=== PATIENT | male | born 1930 | race Caucasian/White ===

== ENCOUNTER 2017-05-09 06:14 | Inpatient (IN) | payer OTHER ==
[2017-05-09 06:33] VITALS: BMI 34.0
--- NOTE | 2017-05-09 06:43 | PDOC ---
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 As per EMS, patient comes from an assisted living facility. EMS states that the home health aide noticed the AMS this morning. Patient is confused and not answering questions. Patient also presents with rashes all over the body. History is obtained from EMS and medical records. History is limited secondary to patient condition. No fever, chills, shortness of breath, chest pain, nausea, vomit, diarrhea. Allergies: NKDA Social History: former smoker <Ava Sanon - Last Filed: 05/09/17 06:57> <Vi Sandy - Last Filed: 05/09/17 23:13> - General Chief Complaint: Altered Mental Status Stated Complaint: AMS Time Seen by Provider: 05/09/17 06:37 Past History <Ava Sanon - Last Filed: 05/09/17 06:57> - Past Medical History CVA: Yes (ON COUMADIN) COPD: No HTN: Yes Hypercholesterolemia: Yes Thyroid Disease: Yes (HYPO) - Immunization History Immunization Up to Date: Yes - Suicide/Smoking/Psychosocial Hx Smoking History: Unknown if ever smoked Have you smoked in the past 12 months: No Hx Alcohol Use: No Drug/Substance Use Hx: No Substance Use Type: None <Vi Sandy - Last Filed: 05/09/17 23:13> - Past Medical History Allergies/Adverse Reactions: Allergies Allergy/AdvReac Type Severity Reaction Status Date / Time No Known Allergies Allergy Verified 05/09/17 08:09 Home Medications: Ambulatory Orders Calcium Carb/Mag Ox/Zinc Sulf [Ytktdcj-Sfnhtwqyq-Lyhi Tablet] 1 each PO DAILY Cholecalciferol (Vitamin D3) [Vitamin D3] 2,000 unit PO DAILY 07/14/16 Donepezil HCl [Aricept] 10 mg PO DAILY 07/14/16 Escitalopram Oxalate [Lexapro -] 10 mg PO DAILY 07/14/16 Furosemide [Lasix] 40 mg PO DAILY 07/14/16 Levothyroxine [Synthroid -] 150 mcg PO ACBK 07/14/16 Lisinopril 10 mg PO DAILY 07/14/16 Memantine HCl [Namenda -] 10 mg PO DAILY 07/14/16 Mesalamine [Lialda] 1.2 gm PO BID 07/14/16 Metoprolol Tartrate [Lopressor -] 25 mg PO BID 07/14/16 Multivitamin [Poly-Vitamin] 1 each PO DAILY 07/14/16 [place]-3 Fatty Acids [Fish Oil] 1 mg PO BID 07/14/16 Potassium Chloride [K-Dur -] 10 meq PO DAILY 07/14/16 Simvastatin 10 mg PO DAILY 07/14/16 Warfarin Sodium [Coumadin] 5 mg PO DAILY 07/14/16 Review of Systems - Review of Systems Able to Perform ROS?: No (AMS) <Ava Sanon - Last Filed: 05/09/17 06:57> *Physical Exam - Vital Signs Last Vital Signs Temp Pulse Resp BP Pulse Ox 99.5 F 79 18 91/64 97 05/09/17 06:30 05/09/17 06:30 05/09/17 06:30 05/09/17 06:30 05/09/17 06:46 - Physical Exam Comments: 05/09/17 07:05 GENERAL: Awake, alert, (+) confused, in no acute distress HEAD: No signs of trauma EYES: PERRLA, EOMI, sclera anicteric, conjunctiva clear ENT: (+) hearing aid in ears, nares patent, oropharynx clear without exudates. Moist mucosa NECK: Normal ROM, supple, no lymphadenopathy, JVD, or masses LUNGS: Breath sounds equal, clear to auscultation bilaterally. No wheezes, and no crackles HEART: (+) Irregularly irregular. Regular rate, normal S1 and S2, no murmurs, rubs or gallops ABDOMEN: Soft, nontender, normoactive bowel sounds. No guarding, no rebound. No masses EXTREMITIES: Normal range of motion, no pitting edema. No clubbing or cyanosis. No cords, erythema, or tenderness NEUROLOGICAL: Cranial nerves II through XII grossly intact. SKIN: Warm, Dry, normal turgor, (+) chicken pox type rash. <Ava Sanon - Last Filed: 05/09/17 06:57> - Vital Signs Last Vital Signs Temp Pulse Resp BP Pulse Ox 99.5 F 79 18 91/64 97 05/09/17 06:30 05/09/17 06:30 05/09/17 06:30 05/09/17 06:30 05/09/17 06:30 <Vi Sandy - Last Filed: 05/09/17 23:13> ED Treatment Course - LABORATORY CBC & Chemistry Diagram: 05/09/17 07:00 05/09/17 07:00 - RADIOLOGY Radiology Studies Ordered: Category Date Time Status HEAD CT WITHOUT CONTRAST [CT] Stat CT Scan 05/09/17 06:29 Ordered CHEST X-RAY PORTABLE* [RAD] Stat Radiology 05/09/17 06:29 Ordered <Vi Sandy - Last Filed: 05/09/17 23:13> Medical Decision Making - Medical Decision Making 05/09/17 06:43 Pt has red maculopapular rash all over body and head and face. Possible pox. Some lesions crusted over. Pt is awake and arousable, but not answering questions. Pt is afebrile and in AFIB. Pt is moving all extremities; he is confused. No pitting edema. No cellulitis. Abd soft NT ND. Pt will have labs, UA, EKG, CXR portable and CT head, IV NSS. 05/09/17 23:13 Pt was signed out to the day team <Vi Sandy - Last Filed: 05/09/17 23:13> *DC/Admit/Observation/Transfer - Attestations Scribe Attestion: 05/09/17 06:58 Documentation prepared by Ava Sanon, acting as certified medical records coder for Vi Sandy MD/DO. <Ava Sanon - Last Filed: 05/09/17 06:57> <Vi Sandy - Last Filed: 05/09/17 23:13> Diagnosis at time of Disposition: Change in mental status, Pneumonia, Dehydration, Hypotension - Discharge Dispostion Condition at time of disposition: Guarded
[2017-05-09 07:12] LABS: BASO % 0.5 % (0-2.0); EOS % 0.2 % (0-4.5); HEMATOCRIT 45.1 % (35.4-49); HEMOGLOBIN 15.4 GM/dL (11.7-16.9); LYMPH % 5.6 % (8-40); MCH 30.9 pg (25.7-33.7); MEAN CELL VOLUME 90.7 fl (80-96); MEAN PLT VOLUME 8.3 fl (7.5-11.1); MONO % 5.7 % (3.8-10.2); PLATELET COUNT 205 K/MM3 (134-434); RBC 4.97 M/mm3 (4.00-5.60); RDW 14.9 % (11.9-15.9); WHITE BLOOD COUNT 10.4 K/mm3 (4.0-10.0)
--- NOTE | 2017-05-09 07:27 | PDOC ---
*Physical Exam - Vital Signs Last Vital Signs Temp Pulse Resp BP Pulse Ox 99.5 F 79 18 91/64 97 05/09/17 06:30 05/09/17 06:30 05/09/17 06:30 05/09/17 06:30 05/09/17 06:46 - Physical Exam Comments: 05/09/17 08:37 gen: sleeping, easily arousable, confused, only answers name correctly heart: +s1s2 irreg lungs: diminished BS b/l bases abd: soft, nt/nd +bs ext: no edema skin: healing pustules over entire body Heart Score/ECG Review - ECG Intrepretation Comment:: 05/09/17 07:25 afib at 72, nl axis, nl interval, no acute st/t wave findings ED Treatment Course - LABORATORY CBC & Chemistry Diagram: 05/09/17 07:00 05/09/17 07:00 Medical Decision Making - Medical Decision Making 05/09/17 07:25 a/p: 87yo male with AMS signed out pending labs, head ct, cxr, ekg -pt currently at head ct 05/09/17 08:39 retrocardiac density on cxr -mildly elevated wbc -confused, ams -will start abx cultures sent hypotensive will start ivf hydration 05/09/17 08:42 microblog sent to hospitalist for admission 05/09/17 08:47 daughter called nurse Danny - pt with all at the beginning of April. Went to [facility] who did head ct and xrays of his back pt has had back pain since put on codeine this week, which made him constipated, then put on stool softeners and has had diarrhea. now with 24 hour home health aide. Decreased PO intake. Hallucinations and altered yesterday. Confused for the last few days. case discussed with IM resident who accepts pt to service under Dr. Huber *DC/Admit/Observation/Transfer Diagnosis at time of Disposition: Change in mental status, Pneumonia, Dehydration, Hypotension - Discharge Dispostion Condition at time of disposition: Guarded Admit: Yes - Referrals - Patient Instructions - Post Discharge Activity
[2017-05-09 07:35] LABS: ALBUMIN 3.3 g/dl (3.4-5.0); ANION GAP 12 (8-16); BLOOD UREA NITROGEN 20 mg/dL (7-18); CHLORIDE 105 mmol/L (98-107); CO2 22 mmol/L (21-32); GLUCOSE,RANDOM 115 mg/dL (74-106); POTASSIUM 3.5 mmol/L (3.5-5.1); SODIUM 139 mmol/L (136-145)
[2017-05-09 07:39] LABS: ALK PHOS 157 U/L (45-117); BILIRUBIN,TOTAL 1.8 mg/dL (0.2-1.0); CREATININE 0.8 mg/dL (0.7-1.3); SGOT/AST 45 U/L (15-37); SGPT/ALT 41 U/L (12-78); TOT PROT 7.1 g/dl (6.4-8.2)
[2017-05-09] MEDS ORDERED: SODIUM CHLORIDE 0.9% 1000 ML INFUS.BAG IV ONE (08:19)
[2017-05-09] MEDS ORDERED: PIPERACILLIN/TAZOB 4.5 GM/100 ML PRE-DOCKED IVPB ONE (08:21)
[2017-05-09] MEDS ORDERED: VANCOMYCIN 1 GRAM (PRE-DOCKED) 1,000 MG/250 ML BAG IVPB ONE ×2 (08:21→08:23)
[2017-05-09] MEDS ORDERED: PIPERACILLIN/TAZOB 4.5 GM 4.5 GM/100 ML BAG IVPB ONE (08:23)
[2017-05-09 08:53] LABS: URINE APPEARANCE CLEAR; URINE BILIRUBIN NEGATIVE (NEGATIVE); URINE BLOOD NEGATIVE (NEGATIVE); URINE COLOR AMBER; URINE GLUCOSE (UA) NEGATIVE (NEGATIVE); URINE KETONE TRACE (NEGATIVE); URINE LEUK ESTERASE NEGATIVE (NEGATIVE); URINE NITRITE NEGATIVE (NEGATIVE); URINE PROTEIN NEGATIVE (NEGATIVE); URINE UROBILINOGEN NEGATIVE mg/dL (0.2-1.0)
--- NOTE | 2017-05-09 09:16 | HP ---
CHIEF COMPLAINT: AMS PCP: Dr. Merlyn Lazaro (associated with [facility]) Manager Transit: Dr. England; previously seen by [facility] physician (Dr. Judie Rodríguez) HISTORY OF PRESENT ILLNESS: HPI is limited due to pt only being oriented to self currently. Daughter was contacted by ED physician who provided some history and rest per medical chart. 87yo M with history of Afib (on Coumadin), previous WA (s/p triple bypass 15yrs ago), previous CVA (15-20 years ago), HTN, HLD, and hypothyroidism who presented for altered mental status. Per the daughter, pt has been altered since 04/30/17, however has become increasingly worse recently. According to daughter, pt has been reporting lower lumbar pain and was seen at [facility]. He received a Head CT and Xrays of his back which were negative according to pt' s daughter. Due to the pain pt was started on Codeine this week with the unfortunate consequence of making him constipated. As a result he was started on stool softeners which caused him diarrhea recently. Pt has a 24-hour home health aide who reported to the daughter that the pt has been having decreased PO intake recently. Currently pt continues to be oriented only to self, however he is alert with verbal stimulus. Pt's speech is slightly dysarthric and unorganized, however pt recognizes this when prompted saying "I seem to be having trouble coming up with words." Pt also reports being chilly and having back pain when sitting up. Otherwise pt denies any SOB or CP. ER course was notable for: (1) Head CT - negative for overt bleeding, enlarged L lateral ventricle, volume loss noted (2) CXR - Obscuring of the left lung angle which could be fluid, R cardiac silhoutte increased opacity (3) 1L NS (initial BP 91/64) (4) Vanc and Zosyn x1 PAST MEDICAL HISTORY: Afib (Coumadin) h/o WA (unknown if decreased EF resulting) HTN HLD Hypothyroidism h/o CVA (unknown time or residual deficits) PAST SURGICAL HISTORY: CABG (Triple bypass) 15 years ago --Surgical clippings noted on R neck (? cartoid endarterectomy) Social History: Smoking: Former smoker Alcohol: Rarely Drugs: None At baseline, pt walks with a cane however has been bedridden due to coccyx Family History: Unobtainable due to altered status Allergies No Known Allergies Allergy (Verified 05/09/17 08:09) HOME MEDICATIONS: Home Medications Medication Instructions Recorded Calcium Carb/Mag Ox/Zinc Sulf 1 each PO DAILY 07/14/16 [Flvvjdt-Hapkedzkv-Tqxx Tablet] Cholecalciferol (Vitamin D3) 2,000 unit PO DAILY 07/14/16 [Vitamin D3] Donepezil HCl [Aricept] 10 mg PO DAILY 07/14/16 Escitalopram Oxalate [Lexapro -] 10 mg PO DAILY 07/14/16 Furosemide [Lasix] 40 mg PO DAILY 07/14/16 Levothyroxine [Synthroid -] 150 mcg PO DAILY 07/14/16 Lisinopril 10 mg PO DAILY 07/14/16 Memantine HCl [Namenda -] 10 mg PO DAILY 07/14/16 Mesalamine [Lialda] 1.2 gm PO BID 07/14/16 Metoprolol Tartrate [Lopressor -] 25 mg PO BID 07/14/16 Multivitamin [Poly-Vitamin] 1 each PO DAILY 07/14/16 [place]-3 Fatty Acids [Fish Oil] 1 mg PO BID 07/14/16 Potassium Chloride [K-Dur -] 10 meq PO DAILY 07/14/16 Simvastatin 10 mg PO DAILY 07/14/16 Warfarin Sodium [Coumadin] 5 mg PO ASDIR 07/14/16 REVIEW OF SYSTEMS CONSTITUTIONAL: Present: Chills Absent: fever, chills, diaphoresis, generalized weakness HEENT: Absent: rhinorrhea, nasal congestion, throat pain, ear pain, visual changes CARDIOVASCULAR: Absent: chest pain, syncope, palpitations, lightheadedness, peripheral edema RESPIRATORY: Absent: cough, shortness of breath, dyspnea with exertion GASTROINTESTINAL: Present: Diarrhea Absent: abdominal pain, abdominal distension, nausea, vomiting GENITOURINARY: Absent: dysuria, frequency, flank pain, genital pain MUSCULOSKELETAL: Present: Back Pain Absent: myalgia, arthralgia, neck pain SKIN: Present: Rash Absent: itching NEUROLOGIC: Absent: headache, focal weakness or paresthesias, dizziness, bladder or bowel incontinence PHYSICAL EXAMINATION Vital Signs - 24 hr 05/09/17 05/09/17 06:30 06:46 Temperature 99.5 F Pulse Rate 79 Respiratory 18 Rate Blood Pressure 91/64 O2 Sat by Pulse 97 97 Oximetry (%) GENERAL: NAD, Awake, alert, and oriented only to self HEAD: NC/AT, see skin exam EYES: constricted pupils, however reactive to light b/l, EOMI, sclera anicteric , conjunctive clear, no exophthalmos ENT: Hearing aids in place, nares patent, oropharynx clear without exudates. Poor dentition. Dry mucous membranes. NECK: supple without lymphadenopathy, JVD, or masses. LUNGS: CTA bilaterally. No wheezes, rales, rhonchi. No accessory muscle use. HEART: Irregularly irregular with normal rate, normal S1 and S2 without murmur ABDOMEN: Soft, nontender, nondistended, normoactive bowel sounds, no guarding, substernal hernia freely reducible w/o any skin changes noted midline No hepatomegaly upon palpation or percussion MUSCULOSKELETAL: No spinal tenderness upon palpation. No CVA tenderness. UPPER EXTREMITIES: 1+ DP pulses, cool extremities with cap refill <2sec. No cyanosis. No calf tenderness. No peripheral edema. NEUROLOGICAL: Slight R facial asymmetry noted at rest. Smile intact bilaterally. GIOVANNA, EOMI, sensation intact across CN V distributions, No tongue deviation, No uvula deviation, UE strength 5/5 and symmetrical in all galindo, LE strength 5/5 and symmetrical in all galindo, sensation intact throughout extremities. Slightly dysarthric speech, Gait not observed. PSYCHIATRIC: Cooperative. Good eye contact. Appropriate mood and affect. SKIN: Warm, dry, honey-crusted lesions noted on R side of face across multiple dermatomes. LE old contusions noted with L anterior leg contusion being most notable. No rash palms or soles of feet. No open wounds noted, no bites noted inbetween webbing of feet and hands. Laboratory Results - last 24 hr 05/09/17 05/09/17 05/09/17 07:00 07:00 07:00 WBC 10.4 H D RBC 4.97 Hgb 15.4 Hct 45.1 MCV 90.7 MCH 30.9 MCHC 34.0 RDW 14.9 Plt Count 205 D MPV 8.3 Neutrophils % 88.0 H Lymphocytes % 5.6 L D Monocytes % 5.7 Eosinophils % 0.2 Basophils % 0.5 Sodium 139 Potassium 3.5 Chloride 105 Carbon Dioxide 22 Anion Gap 12 BUN 20 H Creatinine 0.8 Creat Clearance w eGFR > 60 Random Glucose 115 H Calcium 8.0 L Total Bilirubin 1.8 H AST 45 H ALT 41 Alkaline Phosphatase 157 H Creatine Kinase 274 Troponin I < 0.02 Total Protein 7.1 Albumin 3.3 L Urine Color Urine Appearance Urine pH Ur Specific [place] Urine Protein Urine Glucose (UA) Urine Ketones Urine Blood Urine Nitrite Urine Bilirubin Urine Urobilinogen Ur Leukocyte Esterase 05/09/17 08:18 WBC RBC Hgb Hct MCV MCH MCHC RDW Plt Count MPV Neutrophils % Lymphocytes % Monocytes % Eosinophils % Basophils % Sodium Potassium Chloride Carbon Dioxide Anion Gap BUN Creatinine Creat Clearance w eGFR Random Glucose Calcium Total Bilirubin AST ALT Alkaline Phosphatase Creatine Kinase Troponin I Total Protein Albumin Urine Color Nan Urine Appearance Clear Urine pH 5.0 Ur Specific [place] 1.024 Urine Protein Negative Urine Glucose (UA) Negative Urine Ketones Trace H Urine Blood Negative Urine Nitrite Negative Urine Bilirubin Negative Urine Urobilinogen Negative Ur Leukocyte Esterase Negative ASSESSMENT/PLAN: 87yo M with history of Afib (on Coumadin), previous [place], previous CVA, HTN, HLD, and hypothyroidism who presented for altered mental status 1) Acute encephalopathy --Metabolic vs. polypharmacy (recent codeine initiation for back pain) --Poor PO intake noted with bouts of diarrhea and with home lasix --IVF 1LNS bolused; continue NS@75cc/hr --No abnormalities seen on CMP --Despite CXR doubt PNA; SIRS 0/4 criteria --Will hold off of antibiotics for now and reassess as needed --Per daughter, pt at baseline is verbal (reads [place] [employer] daily), walks with cane, has home health aid for ADLs --Pt however has been bedridden due to his coccygeal problems --? [facility] facility after discharge 2) Dysarthria --Most likely secondary to codeine and dehydration in elderly --Head CT negative for acute hemorrhage; enlarged L posterior ventricle horn noted; volume loss noted (by my read) --Doubt stroke; NIHSS 3 (dysarthria and incorrect responses) --Monitor; may see improvement with hydration and clearance of codeine 3) ? History of CHF --Lasix, Kdur noted on medication list --Obtain records from [facility] and will place call to daughter (Mary [place] noted in computer system) --Echocardiogram to be ordered 4) Known Atrial fibrillation, paroxysmal --Coumadin 5mg qDaily --Confirmed with pharmacy --Monitor INR --If supratherapeutic with daily dose can alternate 5mg and 2.5mg 5) Hyperlipidemia --Lipitor 10mg HS 6) Hypothyroidism --Synthroid 150mcg --TSH 2.33 noted FEN: Fluids: NS @75cc/hr; avoid fluid overlaid Electrolyte abnormalities: None currently Nutrition: NPO for now; speech and swallow eval PPX: DVT - Moderate risk; on coumadin GI - None indicated Dispo: Admit to med-surg Case discussed with Dr. Cecile Sigala, DO - Internal Medicine PGY-1 Visit type - Emergency Visit Emergency Visit: Yes ED Registration Date: 05/09/17 Care time: The patient presented to the Emergency Department on the above date and was hospitalized for further evaluation of their emergent condition. - New Patient This patient is new to me today: Yes Date on this admission: 05/10/17 - Critical Care Critical Care patient: No
--- NOTE | 2017-05-09 09:25 | HP ---
HISTORY OF PRESENT ILLNESS: LIMITED INFORMATION DUE TO PATIENTS MEDICAL CONDITION. Patient is an 87 year old male with a PMHx of A.Eric on Coumadin, CAD s/p ID, HLD , depression, dementia, hypothyroidism who was BIBEMS for altered mental status. Patient is poor historian and according to ED staff patient was sent over after his home health aid noticed he was more confused and not answering questions. Daughter was contacted and states that for the last 10 days patient has been more altered than usual. He recently went to [facility] for back pain and Head CT and Spine X-Ray "was negative" according to the daughter. He was sent him with Codeine, which made him constipated and then they gave him stool softner which caused him to have diarrhea. According to Home health aid, patient has had poor PO intake. Otherwise, patient denied any shortness of breath, chest pain, nausea, or vomiting. Patient Wwalks with a cane at baseline PHYSICAL EXAMINATION Vital Signs - 24 hr 05/09/17 05/09/17 05/09/17 06:30 06:46 09:23 Temperature 99.5 F Pulse Rate 79 Pulse Rate [ 87 Right] Respiratory 18 20 Rate Blood Pressure 91/64 Blood Pressure 128/87 [Right Arm] O2 Sat by Pulse 97 97 95 Oximetry (%) GENERAL: Awake, alert, oriented X1 to person, No acute distress HEAD: Normal with no signs of trauma with honey crusted annular lesions on bilateral temporal and cheek area EYES: Constricted pupils and equal, round and reactive to light, extraocular movements intact, sclera anicteric, conjunctiva clear. No lid lag. EARS, NOSE, THROAT: Oropharynx clear without exudates. Dry mucous membranes. NECK: Normal range of motion, supple without lymphadenopathy, JVD, or masses. LUNGS: Breath sounds equal, clear to auscultation bilaterally. No wheezes, and no crackles. No accessory muscle use. HEART: Regular rate with irregularly irregular rhythm, normal S1 and S2 without murmur, rub or gallop. ABDOMEN: Soft, nontender, not distended, reducible abdominal hernia, normoactive bowel sounds, no guarding, no rebound, no masses. No hepatomegaly or splenomegaly. MUSCULOSKELETAL: Normal range of motion at all joints. No bony deformities or tenderness. No CVA tenderness. UPPER EXTREMITIES: 2+ pulses, warm, well-perfused. No cyanosis. No clubbing. No peripheral edema. LOWER EXTREMITIES: left dp 2+, right dp 1+, cold , well-perfused. No calf tenderness. No peripheral edema. NEUROLOGICAL: Cranial nerves II-XII intact except CN VII, but hard of hearing and mild left facial droop. Dysarthria. Motor strength 5/5 bilaterally with sensory intact throughout. PSYCHIATRIC: Disorganized thought, but cooperative. Laboratory Results - last 24 hr 05/09/17 05/09/17 05/09/17 07:00 07:00 07:00 WBC 10.4 H D RBC 4.97 Hgb 15.4 Hct 45.1 MCV 90.7 MCH 30.9 MCHC 34.0 RDW 14.9 Plt Count 205 D MPV 8.3 Neutrophils % 88.0 H Lymphocytes % 5.6 L D Monocytes % 5.7 Eosinophils % 0.2 Basophils % 0.5 Sodium 139 Potassium 3.5 Chloride 105 Carbon Dioxide 22 Anion Gap 12 BUN 20 H Creatinine 0.8 Creat Clearance w eGFR > 60 Random Glucose 115 H Calcium 8.0 L Total Bilirubin 1.8 H AST 45 H ALT 41 Alkaline Phosphatase 157 H Creatine Kinase 274 Troponin I < 0.02 Total Protein 7.1 Albumin 3.3 L Urine Color Urine Appearance Urine pH Ur Specific [place] Urine Protein Urine Glucose (UA) Urine Ketones Urine Blood Urine Nitrite Urine Bilirubin Urine Urobilinogen Ur Leukocyte Esterase 05/09/17 08:18 WBC RBC Hgb Hct MCV MCH MCHC RDW Plt Count MPV Neutrophils % Lymphocytes % Monocytes % Eosinophils % Basophils % Sodium Potassium Chloride Carbon Dioxide Anion Gap BUN Creatinine Creat Clearance w eGFR Random Glucose Calcium Total Bilirubin AST ALT Alkaline Phosphatase Creatine Kinase Troponin I Total Protein Albumin Urine Color Nan Urine Appearance Clear Urine pH 5.0 Ur Specific [place] 1.024 Urine Protein Negative Urine Glucose (UA) Negative Urine Ketones Trace H Urine Blood Negative Urine Nitrite Negative Urine Bilirubin Negative Urine Urobilinogen Negative Ur Leukocyte Esterase Negative Head CT (05/09/17): No acute pathology Chest X-Ray (05/09/17): Large heart with sclerotic knob, sternal sutures and clips. Dense retrocardiac area and an old fracture deformity of the right clavicle. There are degenerative changes. ASSESSMENT/PLAN: Patient is an 87 year old male who was BIBEMS for Altered Mental Status and was found to have hypotension. Patient admitted for further monitoring and management. Altered Mental Status- Improving -Likely secondary to recent Codeine use for back pain as well as poor oral intake, as per home health aid and daughter. However, Chest X-ray did reveal Dense retrocardiac area with possible consolidation/infiltrate. Will rule out any infectious VS. neurological etiology causing his AMS. Patient does not appear to be septic/toxic looking. He is afebrile with no tachycardia or leukocytosis. No indication for antibiotic use and can monitor off antibiotics. -Urine Antigens, Mycoplasma IgM, and sputum cultures sent -Bedside swallow eval to rule out aspiration. Will leave NPO for now Dysarthria -CT head negative for acute pathology but will need to rule out stroke. -NIH stroke scale: 3 -Will need neuro consult Hypotension -Likely secondary codeine use and poor oral intake -Responded well to IV fluids (2 boluses). Will continue maintenance IV fluids with IV NS@75mls/hr -Will continue to monitor BP and hold off on any Anti-HTN medications A.Fib on Coumadin -Currently rate controlled -PT/INR ordered -Will need to confirm coumadin Hypothyroidism -TSH ordered -Will need to confirm synthroid dose CAD s/p ID -Will need to confirm medications but will hold off anti-htn medications due to borderline hypotension. -Echo ordered HLD -Lipid panel ordered -Will continue Lipitor once dosage confirmed -Rest per Director Of Purchasing H&P -Case discussed with Attending and Bag Loader Lesia Brown- PGY2 Visit type - Emergency Visit Emergency Visit: Yes ED Registration Date: 05/09/17 Care time: The patient presented to the Emergency Department on the above date and was hospitalized for further evaluation of their emergent condition. - New Patient This patient is new to me today: Yes Date on this admission: 05/09/17 - Critical Care Critical Care patient: No
[2017-05-09 10:03] LABS: PHOSPHOROUS 3.4 mg/dL (2.5-4.9)
[2017-05-09] MEDS: SODIUM CHLORIDE 1,000 ML IV SCH (10:19)
[2017-05-09 11:14] LABS: MAGNESIUM 2.2 mg/dL (1.8-2.4)
[2017-05-09 11:31] LABS: INR 2.48 (0.82-1.09)
[2017-05-09] MEDS: MEMANTINE HCL 10 MG TABLET (FP) PO SCH (13:09)
[2017-05-09] MEDS: ESCITALOPRAM OXALATE 10 MG TABLET (FP) PO SCH (13:09)
--- NOTE | 2017-05-09 14:56 | PN ---
Teaching Attending Note Name of Resident: Rush Sigala ATTENDING PHYSICIAN STATEMENT I saw and evaluated the patient. I reviewed the resident's note and discussed the case with the resident. I agree with the resident's findings and plan as documented. HPI is per chart and daughters present at bedside SUBJECTIVE:87yo M with PMH afib on coumadin, CAD s/p CABG, CVA, HTN, dyslipidemia, and UC was sent to the ER for AMS with hallucinations. was seen at [facility] for back pain. imaging done was negative and started on Tylenol #3. then developed constipation and started on laxatives 2 days ago. and developed diarrhea. as per them he has been mostly bed bound since his development of back pain but at baseline ambulates with walker. as per them he is more alert then when he first arrived but not at baseline. states he did not take his medications for the past 2 days. unaware if he is eating/drinking. has not been on any recent abx. been trying to get him into assisted living and is on the waiting list. 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 noted pt had 3 BM during my interview pt denies CP, SOB< fever, chills, N/V/C OBJECTIVE: Last Vital Signs Temp Pulse Resp BP Pulse Ox 98.0 F 87 20 128/87 95 05/09/17 14:35 05/09/17 09:23 05/09/17 09:23 05/09/17 09:23 05/09/17 09:23 General lethargic, A&O x2 (self and location) HEENT pinpoint pupils, dry mucosa CV S1 S2 RRR +murmur Lungs CTA B/L no wheezing/rales/rhonchi abdomen soft NT/ND Extremities no pedal edema Skin macular lesions diffusely throughout the body with some honey crusting on the face. lopez colored lesions on the LLE anterior [place]. lesions are not painful , dry cracked skin Neuro delayed speech, moves all 4 extremities. does not follow all commands ASSESSMENT AND PLAN: 87yo M with PMH afib on coumadin, CAD s/p CABG, CVA, HTN, dyslipidemia, and UC was sent to the ER for AMS with hallucinations. 1. Acute metabolic encephalopathy- [facility] admission. likely due to dehydration with polypharmacy with opiate use. improved since arrival with IV hydration. consider repeat Head ct vs MRI if does not continue to improve. started on vanco/zosyn. will stop at this time as no source of infection identified (UA and CXR negative). head CT done with results pending but on my read no acute bleed. old infarct seen. hold sedating medications. 2. Back pain- check LS XR. tylenol as needed for pain. PT assessment 3. Dehydrated-diarrhea with poor oral intake and diuretic use. IVF resuscitation. frequent lung exam to prevent pulmonary edema. hold lasix 4. Diarrhea- likely due to laxative use however can not r/o UC flare. will monitor for now. no assoc fever or chills or recent abx use. will monitor for now. consider loperamide. cont asacol 5. Hypotension- due to dehydration. IVF. hold antihypertensives 6. Afib on coumadin- INR therapeutic. confirm no head bleed and then can resume coumadin. will reduce metoprolol in setting of hypotension. 7. CAD s/p CABG- no signs of acs. cont statin 8. Dementia- on aricpet, lexapro 9. Hypothyroid- TSH WNL. cont LT4 10. Diffuse sun damage- as per daughters has diffuse skin damage which he is being followed closely by [employer] with advance cream regimen. states honey crusted drainage is chronic and [employer] aware 11. DVT ppx- coumadin 12. spoke with urmila present at bedside. all questions answered. PT assessment and will likely require CLAUDETTE on discharge. On further questioning this is a pt of Dr Roland who Dr Basurto covers for in the hospital. Dr Basurto to assume care in the AM.
[2017-05-09] MEDS ORDERED: WARFARIN NA 5 MG TABLET (UD) PO SCH (15:15)
[2017-05-09] MEDS: WARFARIN NA 5 MG TABLET (UD) PO SCH (18:52)
[2017-05-09] MEDS: METOPROLOL TARTRATE 25 MG TABLET (FP) PO SCH (21:43)
[2017-05-09] MEDS: ATORVASTATIN CA 10 MG TABLET (FP) PO SCH (21:43)
[2017-05-09] MEDS: ACETAMINOPHEN 325 MG TABLET (FP) PO PRN (21:50)
[2017-05-09] MEDS ORDERED: PATIENT'S OWN MEDICATION (NON-FORMULARY) (Simvastatin [Simvastatin] 10 MG) PO SCH (22:00)
[2017-05-10] MEDS: LEVOTHYROXINE NA 150 MCG TABLET PO SCH (06:02)
[2017-05-10 08:44] LABS: HEMATOCRIT 41.5 % (35.4-49); HEMOGLOBIN 13.9 GM/dL (11.7-16.9); MCH 30.5 pg (25.7-33.7); MCHC 33.6 g/dl (32.0-35.9); MEAN CELL VOLUME 90.9 fl (80-96); MEAN PLT VOLUME 8.3 fl (7.5-11.1); PLATELET COUNT 191 K/MM3 (134-434); RBC 4.57 M/mm3 (4.00-5.60); RDW 14.8 % (11.9-15.9); WHITE BLOOD COUNT 6.1 K/mm3 (4.0-10.0)
[2017-05-10 08:46] LABS: INR 3.22 (0.82-1.09); PROTHROMBIN TIME (PATIENT) 36.4 SEC (9.98-11.88)
[2017-05-10 09:04] LABS: CHLORIDE 112 mmol/L (98-107); POTASSIUM 3.4 mmol/L (3.5-5.1); SODIUM 146 mmol/L (136-145)
[2017-05-10 09:17] LABS: ANION GAP 12 (8-16); BLOOD UREA NITROGEN 15 mg/dL (7-18); CO2 22 mmol/L (21-32); CREATININE 0.5 mg/dL (0.7-1.3); GLUCOSE,RANDOM 87 mg/dL (74-106)
[2017-05-10] MEDS ORDERED: PATIENT'S OWN MEDICATION (NON-FORMULARY) (Multivitamin [Poly-Vitamin] 1 EACH) PO SCH (10:00)
[2017-05-10] MEDS: METOPROLOL TARTRATE 25 MG TABLET (FP) PO SCH ×2 (10:14→21:27)
[2017-05-10] MEDS: MULTIVITAMINS (DAILY MVI) TABLET (FP) PO SCH (10:14)
[2017-05-10] MEDS: DONEPEZIL HCL 10 MG TABLET (FP) PO SCH (10:14)
[2017-05-10] MEDS: POTASSIUM CHLORIDE TABS 10 MEQ TABLET.ER (FP) PO SCH (10:14)
[2017-05-10] MEDS: ESCITALOPRAM OXALATE 10 MG TABLET (FP) PO SCH (10:14)
[2017-05-10] MEDS: ACETAMINOPHEN 325 MG TABLET (FP) PO PRN (10:14)
[2017-05-10] MEDS: MEMANTINE HCL 10 MG TABLET (FP) PO SCH (10:14)
[2017-05-10] MEDS: SODIUM CHLORIDE 1,000 ML IV SCH (10:15)
--- NOTE | 2017-05-10 11:10 | CONSULT ---
Admitting History and Physical - Primary Care Physician PCP: Mallory Huber - Admission History of Present Illness: 87yo M with history of Afib (on Coumadin), previous RI, previous CVA, HTN, HLD, and hypothyroidism who presented for altered mental status. Pt was premorbidly fairly independent in % star. Pt reports radiating pain down his right leg. Pt's daughter reports speech production is back to baseline, Dysarthric since old CVA, but he is more confused than baseline. No h/o PNA or recurrent bronchitis. Denies h/o dysphagia, although he "always speaks with his mouth full." History Source: Patient, Family Member (Daughter served as informant.) Limitations to Obtaining History: Clinical Condition - Smoking History Smoking history: Unknown if ever smoked Have you smoked in the past 12 months: No - Alcohol/Substance Use Hx Alcohol Use: No History - Admission Reason For Visit: PNEUMONIA, AMA & DEHYDRATION - Diagnostics X-ray: Report Reviewed CT Scan: Report Reviewed - General Mental Status: Awake and Alert, Able to Follow Commands, Forgetful (Oriented to hospital, xmas recently.) Ability to Follow Directions: Good Head/Neck Control: Fair - Hearing Hearing: Impaired, Both Hearing Aide: Yes (1 WITH PATIENT) With Patient: Yes Speech Evaluation - Communication Primary Language: [place] CITIZEN Communication: Yes: Dysarthria Oral Expression Ability: Yes: Mild Impairment - Speech Production Able to Make Needs Known: Yes: WNL Intelligibility: Yes: Mildly Impaired - Speech Characteristics Voice Loudness: Normal Voice Pitch: Yes: Normal Voice Phonatory-based Quality: Yes: Normal Speech Clarity: < 100% Nasal Resonance: Normal Articulation: Yes: Imprecise (mild) - Language/Auditory Comprehension Observation: Able to respond to yes/no queries: Yes, Comprehends Conversational Speech: Yes - Language/Verbal Expression Aphasia: Yes: Anomia Able to Respond to Simple Queries: Yes: Mildly Impaired Able to Communicate Wants and Needs: Yes: WNL Functional Communication Status: Yes: WNL - Swallow Evaluation/Bedside Assessment Current Nutritional Intake: NPO Oral Secretions: Yes: WFL Dentition: Yes: Adequate, Dental Appliance Upper, Dental Appliance Lower Facial Symmetry at Rest: Symmetrical Facial Symmetry on Retraction: Symmetrical Against Resistance Opening: Normal Against Resistance Closing: Normal Pucker Lips: Normal Smile: Normal Lingual Movement: Normal, Symmetric Lingual Speed of Movement: Reduced Lingual Movement Strgth Against Opposition: Reduced Velopharyngeal Movement: Normal Laryngeal Movement: Labored,delay initiation Rate of Intake: Impulsive Labial Seal: WFL Chewing: WFL Oral Prep Time: WFL A-P Transit: WFL Timing of Swallow: Delayed Coughing/Throat Clear: No Change in Voice: No Recommendations - Speech Evaluation, Impression/Plan Impression: Pt noted to cough on thin liquids intermittently. Two 3 oz water test via straw were (-). Mildly delayed swallow onset but swallow itself is quite brisk. - Dysphagia Impressions/Plan Dysphagia Impressions: Mild Impairment, Risk of Aspiration, Ongoing Evaluation *Silent aspiration: cannot be R/O at bedside Dysphagia Treatment Plan: Small Bites, Chin Tuck/Down, Clear Pocket Food, Facilitative Feeding, 1/2 tsp. at a time, Elevate HOB during feed Recommendations: Modified Barium Swallow (if cough noted) - Recommendations Diet Consistency: Regular (soft, easy to chew) Liquids: Thin Liquids (trial. If cough, [place] thick liquid and MBS.)
--- NOTE | 2017-05-10 11:34 | EKG ---
Test Reason : Blood Pressure : / mmHG Vent. Rate : 072 BPM Atrial Rate : 088 BPM P-R Int : 000 ms QRS Dur : 108 ms QT Int : 444 ms P-R-T Axes : 000 -34 014 degrees QTc Int : 486 ms ATRIAL FIBRILLATION LEFT AXIS DEVIATION NONSPECIFIC T WAVE ABNORMALITY PROLONGED QT ABNORMAL ECG NO PREVIOUS ECGS AVAILABLE Confirmed by AZALEA KINGSTON MD ([id number]) on 05/10/2017 11:34:23 AM Referred By: Confirmed By:AZALEA KINGSTON MD
--- NOTE | 2017-05-10 11:50 | PN ---
Progress Note (short form) - Note Progress Note: HPI is limited due to pt only being oriented to self currently. Daughter was contacted by ED physician who provided some history and rest per medical chart. 87yo M with history of Afib (on Coumadin), previous CT, previous CVA, HTN, HLD, and hypothyroidism who presented for altered mental status. Patient with hx of falls - recent fall with head trauma seen at [facility] -CT neg at that time for acute injury. Per the daughter, pt has been altered since 04/30/17, however has become increasingly worse recently. According to daughter, pt has been reporting lower lumbar pain . Due to the pain pt was started on Codeine this week with the unfortunate consequence of making him constipated. As a result he was started on stool softeners which caused him diarrhea recently. Pt has a 24- hour home health aide who reported to the daughter that the pt has been having decreased PO intake recently. Daughter further offers hx of depression / suicidal ideation / hallucinations / along with cognitive decline Currently pt continues to be oriented only to self, however he is alert with verbal stimulus. Pt's speech is slightly dysarthric and unorganized, however pt recognizes this when prompted saying "I seem to be having trouble coming up with words.". Otherwise pt denies any SOB or CP. ER course was notable for: (1) Head CT - negative for overt bleeding, enlarged L lateral ventricle, volume loss noted (2) CXR - Obscuring of the left lung angle which could be fluid, R cardiac silhoutte increased opacity (3) 1L NS (initial BP 91/64) (4) Vanc and Zosyn x1 Vital Signs Period Temp Pulse Resp BP Sys/Macdonald Pulse Ox Last 24 Hr 97.6 F-98.1 F 69-85 16-20 114-169/60-92 98-100 in bed examined laying in bed / confused / gets agitated easily doesn't know why he is here "why can't I do this at home??" poorly cooperative with exam neck supple heart S1/S2 lungs clear bilat abd soft non tenderr ext no edema Chronic changes left >r CBC, BMP 05/10/17 07:30 05/10/17 07:30 case discussed with daughter discussed findings plans for Neurology eval PT eval and benefit of STR for ADLs Active Medications Acetaminophen (Tylenol -) 650 mg PO Q6H PRN PRN Reason: PAIN Last Admin: 05/10/17 10:14 Dose: 650 mg Atorvastatin Calcium (Lipitor -) 10 mg PO HS [facility] Last Admin: 05/09/17 21:43 Dose: 10 mg Donepezil HCl (Aricept -) 10 mg PO DAILY [facility] Last Admin: 05/10/17 10:14 Dose: 10 mg Escitalopram Oxalate (Lexapro -) 10 mg PO DAILY [facility] Last Admin: 05/10/17 10:14 Dose: 10 mg Sodium Chloride (Normal Saline -) 1,000 mls @ 75 mls/hr IV ASDIR [facility] Stop: 05/10/17 22:49 Last Admin: 05/10/17 10:15 Dose: Not Given Levothyroxine Sodium (Synthroid -) 150 mcg PO ACBK [facility] Last Admin: 05/10/17 06:02 Dose: 150 mcg Memantine (Namenda -) 10 mg PO DAILY [facility] Last Admin: 05/10/17 10:14 Dose: 10 mg Metoprolol Tartrate (Lopressor -) 12.5 mg PO BID [facility] Last Admin: 05/10/17 10:14 Dose: 12.5 mg Multivitamins/Minerals/Vitamin C (Tab-A-Vit -) 1 tab PO DAILY [facility] Last Admin: 05/10/17 10:14 Dose: 1 tab Potassium Chloride (K-Dur -) 10 meq PO DAILY [facility] Last Admin: 05/10/17 10:14 Dose: 10 meq Warfarin Sodium (Coumadin -) 5 mg PO DAILY@1800 [facility] Last Admin: 05/09/17 18:52 Dose: 5 mg Microbiology 05/09/17 07:00 Blood - Peripheral Venous Blood Culture - Preliminary NO GROWTH OBTAINED AFTER 24 HOURS, INCUBATION TO CONTINUE FOR 4 DAYS. 05/09/17 07:00 Blood - Peripheral Venous Blood Culture - Preliminary NO GROWTH OBTAINED AFTER 24 HOURS, INCUBATION TO CONTINUE FOR 4 DAYS. 05/09/17 09:40 Urine For Antigen Detection Legionella Antigen - Final 05/09/17 09:40 Urine For Antigen Detection Streptococcus pneumoniae Antigen (M - Final ASSESSMENT/PLAN: 87yo M with history of Afib (on Coumadin), previous CT, previous CVA, HTN, HLD, and hypothyroidism who presented for altered mental status # Acute encephalopathy --Metabolic vs. polypharmacy (recent codeine initiation for back pain) --Poor PO intake noted with bouts of diarrhea and with home lasix --IVF 1LNS bolused; continue NS@75cc/hr --No abnormalities seen on CMP --Despite CXR doubt PNA; SIRS 0/4 criteria --Will hold off of antibiotics for now and reassess as needed --Per daughter, pt at baseline is verbal, walks with cane, has home health aid for ADLs # Dysarthria -- resolving --Most likely secondary to codeine and dehydration in elderly --Head CT negative for acute hemorrhage --Neuro consult ordered # History of CAD / CHF / A.Fib -- KNown to Dr Salazar group - will consult -- hold coumadin -- follow INR # Hyperlipidemia --Lipitor 10mg HS # Hypothyroidism --Synthroid 150mcg --TSH 2.33 noted # falls/ dementia -- Neuro consult -- PT for ADL / safety -- hold coumadin Problem List - Problems (1) Change in mental status Code(s): R41.82 - ALTERED MENTAL STATUS, UNSPECIFIED (2) Dementia Code(s): F03.90 - UNSPECIFIED DEMENTIA WITHOUT BEHAVIORAL DISTURBANCE (3) A-fib Code(s): I48.91 - UNSPECIFIED ATRIAL FIBRILLATION (4) Fall Code(s): W19.XXXA - UNSPECIFIED FALL, INITIAL ENCOUNTER (5) Hypothyroidism Code(s): E03.9 - HYPOTHYROIDISM, UNSPECIFIED (6) Dehydration Code(s): E86.0 - DEHYDRATION (7) Hypotension Code(s): I95.9 - HYPOTENSION, UNSPECIFIED
[2017-05-10] MEDS ORDERED: POTASSIUM CHLORIDE TABS 20 MEQ TABLET.ER (FP) PO ONE (12:01)
--- NOTE | 2017-05-10 16:21 | CON.CARD ---
Consult Consult Specialty:: cardio Referred by:: baljinder Reason for Consultation:: h/o afib - History of Present Illness Chief Complaint: altered MS History of Present Illness: 87yo M presented for altered mental status. pt has seen my twice in office since he moved to [facility]. he was here recently s/p fall with head trauma--CT head w/o bleed then. dr torres (PMD) d/w'd me last week--per her report he has had cognitive worsening of late, and has fallen at least 3 times now that she has documented since she met him last year. pt's family was advised to make f/u with me in office to discuss R/B of AC. now back with progressive MS worsening since left hospital last time. + lower lumbar pain since the fall, started Codeine this week. + constipation since. home health aide reported to the daughter that he has decreased PO intake recently. also reportedly with hx of depression / suicidal ideation / hallucinations / along with cognitive decline Head CT in ER with no bleeding and no acute infarct. pt admits to ongoing low back pain radiating down R leg with movement sometimes. denies cp, sob, palpitations, syncope PMH: Afib (on Coumadin), previous CVA ? CAD HTN HLD hypothyroidism - Alcohol/Substance Use Hx Alcohol Use: No - Smoking History Smoking history: Unknown if ever smoked Have you smoked in the past 12 months: No Home Medications - Allergies Allergies/Adverse Reactions: Allergies Allergy/AdvReac Type Severity Reaction Status Date / Time No Known Allergies Allergy Verified 05/09/17 08:09 - Home Medications Home Medications: Ambulatory Orders Calcium Carb/Mag Ox/Zinc Sulf [Tyzdtlc-Spimvzkwh-Ecub Tablet] 1 each PO DAILY Cholecalciferol (Vitamin D3) [Vitamin D3] 2,000 unit PO DAILY 07/14/16 Donepezil HCl [Aricept] 10 mg PO DAILY 07/14/16 Escitalopram Oxalate [Lexapro -] 10 mg PO DAILY 07/14/16 Furosemide [Lasix] 40 mg PO DAILY 07/14/16 Levothyroxine [Synthroid -] 150 mcg PO ACBK 07/14/16 Lisinopril 10 mg PO DAILY 07/14/16 Memantine HCl [Namenda -] 10 mg PO DAILY 07/14/16 Mesalamine [Lialda] 1.2 gm PO BID 07/14/16 Metoprolol Tartrate [Lopressor -] 25 mg PO BID 07/14/16 Multivitamin [Poly-Vitamin] 1 each PO DAILY 07/14/16 [place]-3 Fatty Acids [Fish Oil] 1 mg PO BID 07/14/16 Potassium Chloride [K-Dur -] 10 meq PO DAILY 07/14/16 Simvastatin 10 mg PO DAILY 07/14/16 Warfarin Sodium [Coumadin] 5 mg PO DAILY 07/14/16 Family Disease History - Family Disease History Family History: Unable to Obtain Review of Systems - Review of Systems Constitutional: denies: Chills, Fever Eyes: denies: Eye Pain HENT: denies: Nasal Congestion Neck: denies: Stiffness Cardiovascular: denies: Palpitations Respiratory: denies: Orthopnea, PND Gastrointestinal: denies: Diarrhea, Rectal Bleeding Genitourinary: denies: Burning, Hematuria Musculoskeletal: denies: Muscle Pain Integumentary: denies: Rash Neurological: denies: Numbness, Seizure, Syncope Endocrine: denies: Excessive Sweating Hematology/Lymphatic: denies: Excessive Bleeding Vital Signs: Vital Signs Temperature 98.0 F 05/10/17 15:21 Pulse Rate 84 05/10/17 15:21 Respiratory Rate 18 05/10/17 15:21 Blood Pressure 145/78 05/10/17 15:21 O2 Sat by Pulse Oximetry (%) 100 05/09/17 21:00 Constitutional: Yes: Well Nourished, No Distress Eyes: No: Sclera Icterus HENT: No: Nasal Congestion Neck: No: Decreased ROM Respiratory: Yes: CTA Bilaterally. No: Accessory Muscle Use, Rales, Wheezes Gastrointestinal: Yes: Normal Bowel Sounds. No: Distention, Hepatomegaly, Palpable Mass, Tenderness Cardiovascular: Yes: Regular Rate and Rhythm JVD: No Carotid Bruit: No PMI: Non-Displaced Heart Sounds: Yes: S1, S2. No: Gallop Murmur: No: Systolic Murmur, Diastolic Murmur Musculoskeletal: Yes: Other (No kyphosis) Extremities: No: Cold, Cyanosis Edema: No Peripheral Pulses: 2+ Left Carotid, 2+ Right Carotid, 2+ Left Doralis Pedis, 2+ Right Dorsalis Pedis Integumentary: No: Jaundice Neurological: Yes: Alert. No: Seizure Psychiatric: No: Agitated - Other Data Labs, Other Data: CBC, BMP 05/10/17 07:30 05/10/17 07:30 INR, PTT INR 3.22 (0.82-1.09) H 05/10/17 08:20 Laboratory Tests 05/09/17 05/09/17 05/10/17 07:00 07:00 07:30 WBC 6.1 D Hgb 13.9 Plt Count 191 Sodium Potassium Carbon Dioxide BUN Creatinine AST 45 H ALT 41 Troponin I < 0.02 TSH 2.33 05/10/17 07:30 WBC Hgb Plt Count Sodium 146 H Potassium 3.4 L Carbon Dioxide 22 BUN 15 D Creatinine 0.5 L D AST ALT Troponin I TSH Assessment/Plan CXR (image reviewed): no vasc congestion; L base obscured ? infiltrate vs effusion EKG: Afib, LAFB, NSTWAs--no old Afib: -? prior CVA history--will review office records -has been on AC -has had 3 falls in past 1 yr approximately, including with head trauma -CHADS VASC is at least 3, perhaps 5-6 (if prior h/o CVA, DE) -in light of pt's recent decline in cognitive status, and uncontrolled fall situation at home, i do not currently think it is safe to continue AC. his statistical likelihood of significant fall with head trauma appears to be higher than his approximate 6%/year risk of stroke. -rec holding AC at present, and if his cognitive status/meaningful qual of life improves, and his falls risk appears stable at that time, then can resume AC At that time. -LA appendage closure (Watchman device) is an alternative option, but given the invasive nature and need for anesthesia (with risk of cognitive worsening as well), would not pursue this unless mental status stabilizes. -office f/u with me -HR well controlled. cont metoprolol home dose HTN: -bp mostly controlled -cont home meds HPL: -cont home statin dementia, acute MS changes: -? worsening of chronic problem (OMS) -infectious w/u per dr gale. UA appears bland. ? LLL infiltrate hiding behind heart on CXR (though lung exam is benign) -TSH normal
--- NOTE | 2017-05-10 16:37 | CON.NEURO ---
Consult Consult Specialty:: Neurology Referred by:: Dr Llamas Reason for Consultation:: Altered mental status - History of Present Illness Chief Complaint: My left leg hurts History of Present Illness: Patient reportedly confused since April 26. He has been complaing of severe pain radiating down his right leg and was recently started on codeine at [facility]. Progressive confusion led to his admission here, where codeine was discontinued. He doesn't recall coming to the hospital and has apparently improved since arrival. He has a history of Afib, prior stroke. 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 - Alcohol/Substance Use Hx Alcohol Use: No - Smoking History Smoking history: Unknown if ever smoked Have you smoked in the past 12 months: No Home Medications - Allergies Allergies/Adverse Reactions: Allergies Allergy/AdvReac Type Severity Reaction Status Date / Time No Known Allergies Allergy Verified 05/09/17 08:09 - Home Medications Home Medications: Ambulatory Orders Calcium Carb/Mag Ox/Zinc Sulf [Agjkcnt-Wdzyhtkhe-Mfur Tablet] 1 each PO DAILY Cholecalciferol (Vitamin D3) [Vitamin D3] 2,000 unit PO DAILY 07/14/16 Donepezil HCl [Aricept] 10 mg PO DAILY 07/14/16 Escitalopram Oxalate [Lexapro -] 10 mg PO DAILY 07/14/16 Furosemide [Lasix] 40 mg PO DAILY 07/14/16 Levothyroxine [Synthroid -] 150 mcg PO ACBK 07/14/16 Lisinopril 10 mg PO DAILY 07/14/16 Memantine HCl [Namenda -] 10 mg PO DAILY 07/14/16 Mesalamine [Lialda] 1.2 gm PO BID 07/14/16 Metoprolol Tartrate [Lopressor -] 25 mg PO BID 07/14/16 Multivitamin [Poly-Vitamin] 1 each PO DAILY 07/14/16 [place]-3 Fatty Acids [Fish Oil] 1 mg PO BID 07/14/16 Potassium Chloride [K-Dur -] 10 meq PO DAILY 07/14/16 Simvastatin 10 mg PO DAILY 07/14/16 Warfarin Sodium [Coumadin] 5 mg PO DAILY 07/14/16 Physical Exam-Neuro Vital Signs: Vital Signs Temperature 98.0 F 05/10/17 15:21 Pulse Rate 84 05/10/17 15:21 Respiratory Rate 18 05/10/17 15:21 Blood Pressure 145/78 05/10/17 15:21 O2 Sat by Pulse Oximetry (%) 100 05/09/17 21:00 Constitutional: Yes: Well Nourished, Calm Musculoskeletal: Yes: Back Pain, Other (pain on R SLR at 30 degrees) Labs: CBC, BMP 05/10/17 07:30 05/10/17 07:30 INR, PTT INR 3.22 (0.82-1.09) H 05/10/17 08:20 - Neuro Exam Level Of Consciousness: Yes: Alert, Oriented to Person (Knew that it was April 2017, but initially said 1956 and then self corrected) Eyes: Yes: CASEY, Other (EOMI except for no upgaze) Speech: WNL Cranial Nerves II-XII Intact: Yes DTR's: 0 Left Achilles, 0 Right Achilles, 2+ Left Bicep, 2+ Right Bicep, 2+ Left Tricep, 2+ Right Tricep, 2+ Left Brachioradialis, 2+ Right Brachioradialis Babinski: Absent Response to light touch: Normal Motor Strength: 5/5: Left Arm, Right Arm, Left Leg, Right Leg Gait: Deferred Imaging - Results X-ray: Report Reviewed (Head CT shows atrophy and old ischemic changes and chronic cerebellar infarction. Plane film of lumbar spine shows loss of lordosis and degenerative including compressive changes of the vertebrae) Cat Scan: Report Reviewed, Image Reviewed Problem List - Problems (1) Change in mental status Code(s): R41.82 - ALTERED MENTAL STATUS, UNSPECIFIED (2) A-fib Code(s): I48.91 - UNSPECIFIED ATRIAL FIBRILLATION (3) Dementia Code(s): F03.90 - UNSPECIFIED DEMENTIA WITHOUT BEHAVIORAL DISTURBANCE Assessment/Plan 87 year old man, likely with baseline dementia, recently fell and has lumbar radicular pain. Likely codeine lead to his altered mentation and he is improving. He has rather severe radicular pain, and this may best be addressed with epidural. I'd like to see radiologic correlate though and will order MRI lumbar spine. Avoid narcotics for now. Thanks.
[2017-05-10] MEDS: WARFARIN NA 5 MG TABLET (UD) PO SCH (17:45)
[2017-05-10] MEDS: ATORVASTATIN CA 10 MG TABLET (FP) PO SCH (21:27)
[2017-05-11] MEDS: ACETAMINOPHEN 325 MG TABLET (FP) PO PRN ×2 (00:52→06:51)
[2017-05-11] MEDS ORDERED: PT OWN MED DRAWER 7, Y5N ONE ×3 (06:25→19:49)
[2017-05-11] MEDS: LEVOTHYROXINE NA 150 MCG TABLET PO SCH (06:27)
[2017-05-11 08:39] LABS: BASO % 2.2 % (0-2.0); EOS % 1.1 % (0-4.5); HEMATOCRIT 42.4 % (35.4-49); HEMOGLOBIN 14.1 GM/dL (11.7-16.9); LYMPH % 15.3 % (8-40); MCH 30.1 pg (25.7-33.7); MCHC 33.2 g/dl (32.0-35.9); MEAN CELL VOLUME 90.8 fl (80-96); MEAN PLT VOLUME 8.4 fl (7.5-11.1); MONO % 9.2 % (3.8-10.2); NEUT % 72.2 % (42.8-82.8); PLATELET COUNT 220 K/MM3 (134-434); RBC 4.67 M/mm3 (4.00-5.60); RDW 14.8 % (11.9-15.9); WHITE BLOOD COUNT 7.6 K/mm3 (4.0-10.0)
[2017-05-11 08:55] LABS: ANION GAP 9 (8-16); BLOOD UREA NITROGEN 13 mg/dL (7-18); CALCIUM 8.1 mg/dL (8.5-10.1); CHLORIDE 107 mmol/L (98-107); CO2 25 mmol/L (21-32); CREATININE 0.5 mg/dL (0.7-1.3); GLUCOSE,RANDOM 89 mg/dL (74-106); MAGNESIUM 1.9 mg/dL (1.8-2.4); POTASSIUM 3.9 mmol/L (3.5-5.1); SODIUM 141 mmol/L (136-145)
--- NOTE | 2017-05-11 09:02 | CONS ---
PHYSICAL MEDICINE REHABILITATION CONSULTATION DATE OF CONSULTATION: 05/11/2017 REFERRING PHYSICIAN: Rosamaria Llamas MD HISTORY OF PRESENT ILLNESS: The patient is an 87-year-old man with past medical history of mild dementia, atrial fibrillation on anticoagulation, who was admitted with altered mental status on May 09, 2017. Patient evidently states that he had fallen 1-2 weeks ago and developed pain from his back radiating down his right lower extremity. Patient was placed on codeine and developed altered mental status which worsened in the week prior to admission. Patient had previously been seen at [facility] where CT of the head and x-rays of the back failed to demonstrate any acute pathology per the daughter on admission. Patient did undergo a repeat CT of the head on May 09, which showed no acute intracranial pathology. X-rays of the lumbar spine which demonstrated compression fracture at L4 and L5, as well as degenerative changes, aortic calcification. Patient has been seen by Neurology, and an MRI of the lumbar spine has been ordered to assess for lumbar radiculopathy. Patient's blood work demonstrates slight leukocytosis on admission, 10.4, which on repeat blood work done yesterday improved to 6.1, hemoglobin stable at 13.9, platelets stable at 191. CBC showed some mild hyponatremia with a potassium level of 3.4. Otherwise, chemistry mainly unremarkable. He had slight elevation of AST of 45 and alkaline phosphatase 157. Albumin low at 3.3. Patient overall feels much better. He is able to give a history and does remember waking up, being very confused in the emergency room or hospital here. He continues to complain of difficulty standing and ambulating due to pain in the right lower extremity which radiates from his back. He states he had no prior back problems prior to the fall within the last few weeks and did not use an assistive device. He has no dizziness, headache. No chest pain or shortness of breath. PAST MEDICAL AND SURGICAL HISTORY: As above. Also, a history of hypertension, hypothyroidism, depression. Again, he is anticoagulated. His current INR is slightly supratherapeutic as of yesterday at 3.2. SOCIAL HISTORY: Lives alone in an apartment. Again, premorbidly, he states he was independent, ambulatory without assistive device. Current function: Nonambulatory and difficulty moving around in the bed. REVIEW OF SYSTEMS: No headache. No lightheadedness, dizziness, blurry vision, double vision, nausea, vomiting, difficulty swallowing, difficulty chewing, chest pain, shortness of breath, dyspnea on exertion, night orthopnea, abdominal pain, bowel or bladder incontinence, retention, frequent urination, fever or chills, weight loss or weight gain. Other than the back pain radiating down the posterior right leg, no other joint pain, muscle arthralgias, numbness, tingling, rash, skin discoloration, or wounds. PHYSICAL EXAMINATION: General: A tall, thin man seen lying in bed. He is awake, alert, and fully cooperative. He seems to have some insight into his medical conditions. HEENT: He is normocephalic and atraumatic. His extraocular muscles appear intact. He has no obvious facial weakness. Neck: Supple, slightly reduced range. Lumbar Spine: I am unable to test his range, but he has some mild tenderness in the right lumbosacral paraspinals and right gluteal musculature. Negative straight leg raise test. No pitting edema or calf tenderness. Skin: Some dysvascular changes distally but no rash or signs of infection. Neuromuscular: He is awake, alert. He knew the month was April. He did not know the exact date. He knew he was in the hospital and knew the name. He had known previously he was in [facility]. Cranial nerves 2-12 appear grossly intact. He has some mild arthritic changes in the hands but good range of motion, good strength in the upper extremities. He has antigravity strength in the right hip, but he is not able to raise the right leg as high as the left leg and, otherwise, good strength in the lower extremities. Slightly diminished sensation to pinprick distally, right more than left lower extremity. No gross arthritic change in the lower extremities. No pain with passive range of the right hip, internal or external rotation of the hips. Unable to assess gait at this time. OVERALL IMPRESSION: 1. Deficits in mobility and activities of daily living. 2. Deconditioning. 3. Altered mental status, improving, probably due to codeine. 4. Low back pain radiating into the right lower extremity, signs of degenerative changes as well as compression fractures, L4 and L5. MRI pending. Rule out S1 radiculopathy. 5. Status post fall. 6. Atrial fibrillation on anticoagulation with slightly supratherapeutic INR. 7. Elevated risk for constipation. 8. Hypothyroidism. 9. Mild dementia by history. 10. History of depression. PLAN/SUGGESTION: 1. Physical therapy at the bedside to include bed mobility, transfers, gait if and when appropriate, strengthening and conditioning of the lower extremities. Family training if appropriate. 2. Out of bed to chair. 3. MRI lumbosacral spine pending. 4. Consider pain management. 5. Avoid narcotics. 6. Bowel regimen. 7. Case management. May need short-term rehab in a half-way facility based on his mobility, availability of family and services. Thank you for this referral. TED GONZALES M.D. [id number]
--- NOTE | 2017-05-11 09:31 | PN ---
Progress Note, Physician Chief Complaint: Change in Mental Status/left leg pain History of Present Illness: Patient reportedly confused since April 26. He has been complaing of severe pain radiating down his right leg and was recently started on codeine at [facility]. Progressive confusion led to his admission here, where codeine was discontinued. He doesn't recall coming to the hospital and has apparently improved since arrival. He has a history of Afib, prior stroke. - Current Medication List Current Medications: Active Medications Acetaminophen (Tylenol -) 650 mg PO Q6H PRN PRN Reason: PAIN Last Admin: 05/11/17 06:51 Dose: 650 mg Atorvastatin Calcium (Lipitor -) 10 mg PO HS [facility] Last Admin: 05/10/17 21:27 Dose: 10 mg Donepezil HCl (Aricept -) 10 mg PO DAILY [facility] Last Admin: 05/10/17 10:14 Dose: 10 mg Escitalopram Oxalate (Lexapro -) 10 mg PO DAILY [facility] Last Admin: 05/10/17 10:14 Dose: 10 mg Levothyroxine Sodium (Synthroid -) 150 mcg PO ACBK [facility] Last Admin: 05/11/17 06:27 Dose: 150 mcg Memantine (Namenda -) 10 mg PO DAILY [facility] Last Admin: 05/10/17 10:14 Dose: 10 mg Metoprolol Tartrate (Lopressor -) 12.5 mg PO BID [facility] Last Admin: 05/10/17 21:27 Dose: 12.5 mg Multivitamins/Minerals/Vitamin C (Tab-A-Vit -) 1 tab PO DAILY [facility] Last Admin: 05/10/17 10:14 Dose: 1 tab Potassium Chloride (K-Dur -) 10 meq PO DAILY [facility] Last Admin: 05/10/17 10:14 Dose: 10 meq Warfarin Sodium (Coumadin -) 5 mg PO DAILY@1800 [facility] Last Admin: 05/10/17 17:45 Dose: Not Given - Objective Vital Signs: Vital Signs Temperature 98.5 F 05/11/17 06:15 Pulse Rate 80 05/11/17 06:15 Respiratory Rate 18 05/11/17 06:15 Blood Pressure 155/93 05/11/17 06:15 O2 Sat by Pulse Oximetry (%) 97 05/10/17 21:00 Neurological: Yes: Oriented, Babinski negative, Cran Nerves II-XII Intact ...Motor Strength: WNL Labs: CBC, BMP 05/11/17 06:00 INR, PTT INR 3.22 (0.82-1.09) H 05/10/17 08:20 - ....Imaging MRI: Pending (lumbosacral spine) Problem List - Problems (1) Change in mental status Code(s): R41.82 - ALTERED MENTAL STATUS, UNSPECIFIED (2) A-fib Code(s): I48.91 - UNSPECIFIED ATRIAL FIBRILLATION (3) Dementia Code(s): F03.90 - UNSPECIFIED DEMENTIA WITHOUT BEHAVIORAL DISTURBANCE Assessment/Plan 87 year old man, likely with baseline dementia, recently fell and has lumbar radicular pain. Likely codeine lead to his altered mentation and he is improving. He has rather severe radicular pain, and this may best be addressed with epidural. I'd like to see radiologic correlate though and will order MRI lumbar spine. Avoid narcotics for now. I'll also start duloxetine which may help his pain and mentation as well. I'll start 30 mg to get him used to it, but he should be discharged on 60 mg daily (with food) Thanks.
[2017-05-11] MEDS: DULoxetine HCL 30 MG CAPSULE.DR (FP) PO SCH (09:51)
[2017-05-11] MEDS: METOPROLOL TARTRATE 25 MG TABLET (FP) PO SCH ×2 (09:51→21:28)
[2017-05-11] MEDS: MEMANTINE HCL 10 MG TABLET (FP) PO SCH (09:52)
[2017-05-11] MEDS: ESCITALOPRAM OXALATE 10 MG TABLET (FP) PO SCH (09:52)
[2017-05-11] MEDS: DONEPEZIL HCL 10 MG TABLET (FP) PO SCH (09:52)
[2017-05-11] MEDS: MULTIVITAMINS (DAILY MVI) TABLET (FP) PO SCH (09:52)
[2017-05-11] MEDS: POTASSIUM CHLORIDE TABS 10 MEQ TABLET.ER (FP) PO SCH (09:52)
--- NOTE | 2017-05-11 10:20 | PN ---
Progress Note (short form) - Note Progress Note: seen and examined in bed c/o right back pain radiating to lateral thigh has not been ambulating to bee sen by PT today Vital Signs Period Temp Pulse Resp BP Sys/Macdonald Pulse Ox Last 24 Hr 97.6 F-98.1 F 69-85 16-20 114-169/60-92 98-100 more cognitively clear today aware of poor short term memory neck supple heart S1/S2 lungs clear bilat abd soft non tenderr ext no edema Chronic changes left >r pain on movement right LE leg raise CBC, BMP 05/11/17 06:00 05/11/17 06:00 PT eval today Active Medications Acetaminophen (Tylenol -) 650 mg PO Q6H PRN PRN Reason: PAIN Last Admin: 05/11/17 06:51 Dose: 650 mg Atorvastatin Calcium (Lipitor -) 10 mg PO HS [facility] Last Admin: 05/10/17 21:27 Dose: 10 mg Donepezil HCl (Aricept -) 10 mg PO DAILY [facility] Last Admin: 05/11/17 09:52 Dose: 10 mg Duloxetine HCl (Cymbalta -) 30 mg PO DAILY [facility] Last Admin: 05/11/17 09:51 Dose: 30 mg Escitalopram Oxalate (Lexapro -) 10 mg PO DAILY [facility] Last Admin: 05/11/17 09:52 Dose: 10 mg Levothyroxine Sodium (Synthroid -) 150 mcg PO ACBK [facility] Last Admin: 05/11/17 06:27 Dose: 150 mcg Memantine (Namenda -) 10 mg PO DAILY [facility] Last Admin: 05/11/17 09:52 Dose: 10 mg Metoprolol Tartrate (Lopressor -) 12.5 mg PO BID [facility] Last Admin: 05/11/17 09:51 Dose: 12.5 mg Multivitamins/Minerals/Vitamin C (Tab-A-Vit -) 1 tab PO DAILY [facility] Last Admin: 05/11/17 09:52 Dose: 1 tab Potassium Chloride (K-Dur -) 10 meq PO DAILY [facility] Last Admin: 05/11/17 09:52 Dose: 10 meq Warfarin Sodium (Coumadin -) 5 mg PO DAILY@1800 [facility] Last Admin: 05/10/17 17:45 Dose: Not Given Microbiology 05/09/17 07:00 Blood - Peripheral Venous Blood Culture - Preliminary NO GROWTH OBTAINED AFTER 48 HOURS, INCUBATION TO CONTINUE FOR 3 DAYS. 05/09/17 07:00 Blood - Peripheral Venous Blood Culture - Preliminary NO GROWTH OBTAINED AFTER 48 HOURS, INCUBATION TO CONTINUE FOR 3 DAYS. 05/09/17 22:00 Stool Clostridium difficile Antigen (AMARILIS) - Final 05/09/17 22:00 Stool Clostridium difficile Toxin Assay - Final 05/09/17 09:40 Urine For Antigen Detection Legionella Antigen - Final 05/09/17 09:40 Urine For Antigen Detection Streptococcus pneumoniae Antigen (M - Final ASSESSMENT/PLAN: 87yo M with history of Afib (on Coumadin), previous PR, previous CVA, HTN, HLD, and hypothyroidism who presented for altered mental status # Acute encephalopathy --Metabolic vs. polypharmacy (recent codeine initiation for back pain) --Poor PO intake noted with bouts of diarrhea and with home lasix --IVF 1LNS bolused; continue NS@75cc/hr --No abnormalities seen on CMP --Despite CXR doubt PNA; SIRS 0/4 criteria --Will hold off of antibiotics for now and reassess as needed --Per daughter, pt at baseline is verbal, walks with cane, has home health aid for ADLs # Dysarthria -- resolving --Most likely secondary to codeine and dehydration in elderly --Head CT negative for acute hemorrhage --Neuro consult ordered # History of CAD / CHF / A.Fib -- KNown to Dr Salazar group - will consult -- hold coumadin -- follow INR # Hyperlipidemia --Lipitor 10mg HS # Hypothyroidism --Synthroid 150mcg --TSH 2.33 noted # falls/ dementia -- Neuro consult -- PT for ADL / safety -- hold coumadin Problem List - Problems (1) Change in mental status Code(s): R41.82 - ALTERED MENTAL STATUS, UNSPECIFIED (2) Dementia Code(s): F03.90 - UNSPECIFIED DEMENTIA WITHOUT BEHAVIORAL DISTURBANCE (3) A-fib Code(s): I48.91 - UNSPECIFIED ATRIAL FIBRILLATION (4) Fall Code(s): W19.XXXA - UNSPECIFIED FALL, INITIAL ENCOUNTER (5) Hypothyroidism Code(s): E03.9 - HYPOTHYROIDISM, UNSPECIFIED (6) Dehydration Code(s): E86.0 - DEHYDRATION (7) Hypotension Code(s): I95.9 - HYPOTENSION, UNSPECIFIED
[2017-05-11 11:52] LABS: INR 2.8 (0.82-1.09); PROTHROMBIN TIME (PATIENT) 31.6 SEC (9.98-11.88)
--- NOTE | 2017-05-11 15:25 | PN ---
Progress Note, DIRECTOR OF MIDWIFERY/STAFF MIDWIFE - Note Progress Note: Selected Entries 05/10/17 05/10/17 05/10/17 05:00 11:00 15:21 Breakfast Supper Temperature 98.1 F 97.6 F 98.0 F 05/10/17 05/10/17 05/10/17 16:30 18:30 22:00 Breakfast Supper 100% Temperature 97.9 F 97.6 F 05/11/17 05/11/17 05/11/17 06:15 10:00 12:21 Breakfast 75% Supper Temperature 98.5 F 97.5 F L Laboratory Tests 05/11/17 06:00 WBC 7.6 Tolerating diet. Quite confused for me, denying he is in the hospital, that he needed his bed turned around, etc Speech fairly precise.
[2017-05-11] MEDS ORDERED: WARFARIN NA 5 MG TABLET (UD) PO ONE (18:30)
--- NOTE | 2017-05-11 18:53 | PN ---
Progress Note, Physician Chief Complaint: altered MS History of Present Illness: c/o R hip/coccyx pain no cp, sob, palpit - Current Medication List Current Medications: Active Medications Acetaminophen (Tylenol -) 650 mg PO Q6H PRN PRN Reason: PAIN Last Admin: 05/11/17 06:51 Dose: 650 mg Atorvastatin Calcium (Lipitor -) 10 mg PO HS [facility] Last Admin: 05/10/17 21:27 Dose: 10 mg Donepezil HCl (Aricept -) 10 mg PO DAILY [facility] Last Admin: 05/11/17 09:52 Dose: 10 mg Duloxetine HCl (Cymbalta -) 30 mg PO DAILY [facility] Last Admin: 05/11/17 09:51 Dose: 30 mg Escitalopram Oxalate (Lexapro -) 10 mg PO DAILY [facility] Last Admin: 05/11/17 09:52 Dose: 10 mg Levothyroxine Sodium (Synthroid -) 150 mcg PO ACBK [facility] Last Admin: 05/11/17 06:27 Dose: 150 mcg Memantine (Namenda -) 10 mg PO DAILY [facility] Last Admin: 05/11/17 09:52 Dose: 10 mg Metoprolol Tartrate (Lopressor -) 12.5 mg PO BID [facility] Last Admin: 05/11/17 09:51 Dose: 12.5 mg Multivitamins/Minerals/Vitamin C (Tab-A-Vit -) 1 tab PO DAILY [facility] Last Admin: 05/11/17 09:52 Dose: 1 tab Potassium Chloride (K-Dur -) 10 meq PO DAILY [facility] Last Admin: 05/11/17 09:52 Dose: 10 meq - Objective Vital Signs: Vital Signs Temperature 98.6 F 05/11/17 15:51 Pulse Rate 78 05/11/17 15:51 Respiratory Rate 16 05/11/17 15:51 Blood Pressure 140/78 05/11/17 15:51 O2 Sat by Pulse Oximetry (%) 93 L 05/11/17 09:00 Constitutional: Yes: Well Nourished, No Distress, Calm Cardiovascular: Yes: Pulse Irregular, S1, S2. No: Gallop, Murmur Respiratory: Yes: Regular, CTA Bilaterally. No: Accessory Muscle Use, Rales, Wheezes Extremities: No: Cold Edema: No Neurological: Yes: Alert. No: Seizure Psychiatric: No: Agitated Labs: CBC, BMP 05/11/17 06:00 05/11/17 06:00 INR, PTT INR 2.80 (0.82-1.09) H 05/11/17 10:50 Assessment/Plan CXR (image reviewed): no vasc congestion; L base obscured ? infiltrate vs effusion EKG: Afib, LAFB, NSTWAs--no old MPI 2012 (joe): no STs. small, mild-to-mod ischemia in [id number] inferolateral wall. nl LVEF, no TID Echo 11/09: 1. Atrial fibrillation. 2. This was a very technically difficult study with suboptimal views. 3. Overall left ventricular systolic function is normal with a visually estimated EF >60 %. Regional wall motion could not be accurately assessed. 4. The RV was not well visualized; chamber size is normal to mildly dilated, systolic function appears normal. 5. The left atrium was not well visualized; probably at least mild to moderately dilated. 6. The right atrium was not well visualized; chamber is probably at least moderately dilated. 7. The aortic root is mildy dilated (4.0 cm at sinuses of Valsalva). 8. Valves not well seen; no evidence of valvular dysfunction present. Afib: -prior CVA history, likely embolic (afib dx'd at that time and AC started) -has been on AC since the stroke -has had 3 falls in past 1 yr approximately, including with head trauma -CHADS VASC is at least 3, perhaps 5-6 (if prior h/o CVA, DE) -in light of pt's recent decline in cognitive status, and uncontrolled fall situation at home, i do not currently think it is safe to continue AC. his statistical likelihood of significant fall with head trauma appears to be higher than his approximate 6%/year risk of stroke. -rec holding AC at present, and if his cognitive status/meaningful qual of life improves, and his falls risk appears stable at that time, then can resume AC At that time. -LA appendage closure (Watchman device) is an alternative option, but given the invasive nature and need for anesthesia (with risk of cognitive worsening as well), would not pursue this unless mental status stabilizes. -office f/u with me -HR well controlled. cont metoprolol home dose CAD, s/p CABG 2005; -no angina -small area of low-risk ischemia on prior outpt nuclear, as above -cont home meds HTN: -bp mostly controlled -cont home meds HPL: -cont home statin dementia, acute MS changes: -? worsening of chronic problem (OMS) -infectious w/u per dr gale. UA appears bland. ? LLL infiltrate hiding behind heart on CXR (though lung exam is benign) -TSH normal
[2017-05-11] MEDS: ATORVASTATIN CA 10 MG TABLET (FP) PO SCH (21:28)
[2017-05-12] MEDS ORDERED: PT OWN MED DRAWER 7, Y5N ONE ×2 (01:12→06:14)
[2017-05-12] MEDS: LEVOTHYROXINE NA 150 MCG TABLET PO SCH (06:15)
[2017-05-12 08:19] LABS: HEMATOCRIT 44.7 % (35.4-49); MCH 30.3 pg (25.7-33.7); MCHC 33.5 g/dl (32.0-35.9); MEAN CELL VOLUME 90.3 fl (80-96); MEAN PLT VOLUME 8.3 fl (7.5-11.1); PLATELET COUNT 228 K/MM3 (134-434); RBC 4.95 M/mm3 (4.00-5.60); RDW 15.1 % (11.9-15.9)
[2017-05-12 08:46] LABS: ANION GAP 11 (8-16); BLOOD UREA NITROGEN 11 mg/dL (7-18); CALCIUM 8.3 mg/dL (8.5-10.1); CHLORIDE 106 mmol/L (98-107); CO2 24 mmol/L (21-32); CREATININE 0.5 mg/dL (0.7-1.3); GLUCOSE,RANDOM 106 mg/dL (74-106); POTASSIUM 3.6 mmol/L (3.5-5.1); SODIUM 141 mmol/L (136-145)
[2017-05-12] MEDS: MEMANTINE HCL 10 MG TABLET (FP) PO SCH (10:25)
[2017-05-12] MEDS: DONEPEZIL HCL 10 MG TABLET (FP) PO SCH (10:25)
[2017-05-12] MEDS: MULTIVITAMINS (DAILY MVI) TABLET (FP) PO SCH (10:25)
[2017-05-12] MEDS: ESCITALOPRAM OXALATE 10 MG TABLET (FP) PO SCH (10:25)
[2017-05-12] MEDS: METOPROLOL TARTRATE 25 MG TABLET (FP) PO SCH ×2 (10:25→23:28)
[2017-05-12] MEDS: POTASSIUM CHLORIDE TABS 10 MEQ TABLET.ER (FP) PO SCH (10:25)
[2017-05-12] MEDS: ACETAMINOPHEN 325 MG TABLET (FP) PO PRN (10:26)
[2017-05-12] MEDS: DULoxetine HCL 30 MG CAPSULE.DR (FP) PO SCH (10:28)
--- NOTE | 2017-05-12 11:48 | PN ---
Progress Note (short form) - Note Progress Note: Patient reportedly confused since April 26. He has been complaing of severe pain radiating down his right leg and was recently started on codeine at [facility]. Progressive confusion led to his admission here, where codeine was discontinued. He doesn't recall coming to the hospital and has apparently improved since arrival. He has a history of Afib, prior stroke. FU: resting comfrotable though when attempt to walk, pain in the Right leg hip (hip to thighh) no focal weakness of leg no numbness awake and conversive though ahs baseline dementia - Current Medication List Current Medications: Active Medications Acetaminophen (Tylenol -) 650 mg PO Q6H PRN PRN Reason: PAIN Last Admin: 05/11/17 06:51 Dose: 650 mg Atorvastatin Calcium (Lipitor -) 10 mg PO HS [facility] Last Admin: 05/10/17 21:27 Dose: 10 mg Donepezil HCl (Aricept -) 10 mg PO DAILY [facility] Last Admin: 05/10/17 10:14 Dose: 10 mg Escitalopram Oxalate (Lexapro -) 10 mg PO DAILY [facility] Last Admin: 05/10/17 10:14 Dose: 10 mg Levothyroxine Sodium (Synthroid -) 150 mcg PO ACBK [facility] Last Admin: 05/11/17 06:27 Dose: 150 mcg Memantine (Namenda -) 10 mg PO DAILY [facility] Last Admin: 05/10/17 10:14 Dose: 10 mg Metoprolol Tartrate (Lopressor -) 12.5 mg PO BID [facility] Last Admin: 05/10/17 21:27 Dose: 12.5 mg Multivitamins/Minerals/Vitamin C (Tab-A-Vit -) 1 tab PO DAILY [facility] Last Admin: 05/10/17 10:14 Dose: 1 tab Potassium Chloride (K-Dur -) 10 meq PO DAILY [facility] Last Admin: 05/10/17 10:14 Dose: 10 meq Warfarin Sodium (Coumadin -) 5 mg PO DAILY@1800 [facility] Last Admin: 05/10/17 17:45 Dose: Not Given - Objective Vital Signs: Vital Signs Temperature 98.1 F 05/12/17 06:00 Pulse Rate 90 05/11/17 22:00 Respiratory Rate 20 05/11/17 22:00 Blood Pressure 158/88 05/12/17 06:10 O2 Sat by Pulse Oximetry (%) 93 L 05/11/17 21:00 Neurological: Yes: Oriented, Babinski negative, Cran Nerves II-XII Intact ...Motor Strength: WNL, fasciculation R TA and gastrocnemius Labs: CBCD WBC 9.0 K/mm3 (4.0-10.0) 05/12/17 05:40 RBC 4.95 M/mm3 (4.00-5.60) 05/12/17 05:40 Hgb 15.0 GM/dL (11.7-16.9) 05/12/17 05:40 Hct 44.7 % (35.4-49) 05/12/17 05:40 MCV 90.3 fl (80-96) 05/12/17 05:40 MCHC 33.5 g/dl (32.0-35.9) 05/12/17 05:40 RDW 15.1 % (11.9-15.9) 05/12/17 05:40 Plt Count 228 K/MM3 (134-434) 05/12/17 05:40 MPV 8.3 fl (7.5-11.1) 05/12/17 05:40 CMP Sodium 141 mmol/L (136-145) 05/12/17 05:40 Potassium 3.6 mmol/L (3.5-5.1) 05/12/17 05:40 Chloride 106 mmol/L (98-107) 05/12/17 05:40 Carbon Dioxide 24 mmol/L (21-32) 05/12/17 05:40 Anion Gap 11 (8-16) 05/12/17 05:40 BUN 11 mg/dL (7-18) 05/12/17 05:40 Creatinine 0.5 mg/dL (0.7-1.3) L 05/12/17 05:40 Creat Clearance w eGFR > 60 (>60) 05/09/17 07:00 Calcium 8.3 mg/dL (8.5-10.1) L 05/12/17 05:40 Total Bilirubin 1.8 mg/dL (0.2-1.0) H 05/09/17 07:00 AST 45 U/L (15-37) H 05/09/17 07:00 ALT 41 U/L (12-78) 05/09/17 07:00 Alkaline Phosphatase 157 U/L (45-117) H 05/09/17 07:00 Total Protein 7.1 g/dl (6.4-8.2) 05/09/17 07:00 Albumin 3.3 g/dl (3.4-5.0) L 05/09/17 07:00 - ....Imaging MRI: Pending (lumbosacral spine) Problem List - Problems (1) Change in mental status Code(s): R41.82 - ALTERED MENTAL STATUS, UNSPECIFIED (2) A-fib Code(s): I48.91 - UNSPECIFIED ATRIAL FIBRILLATION (3) Dementia Code(s): F03.90 - UNSPECIFIED DEMENTIA WITHOUT BEHAVIORAL DISTURBANCE Assessment/Plan 87 year old man, likely with baseline dementia, recently fell and has lumbar / hip pain R. check HIP XRAY R if cant tolerate MRI, get CT LS spine give one time percocet dose for scan. coumadin on hold. rehab Dr Weldon
--- NOTE | 2017-05-12 12:00 | PN ---
Progress Note (short form) - Note Progress Note: seen and examined in bed c/o right back pain radiating to lateral thigh has not been ambulating seen by Neuro appreciate in put Vital Signs Period Temp Pulse Resp BP Sys/Macdonald Pulse Ox Last 24 Hr 97.6 F-98.1 F 69-85 16-20 114-169/60-92 98-100 more cognitively clear today aware of poor short term memory neck supple heart S1/S2 lungs clear bilat abd soft non tenderr ext no edema Chronic changes left >r pain on movement right LE leg raise CBC, BMP 05/12/17 05:40 05/12/17 05:40 Active Medications Acetaminophen (Tylenol -) 650 mg PO Q6H PRN PRN Reason: PAIN Last Admin: 05/12/17 10:26 Dose: 650 mg Atorvastatin Calcium (Lipitor -) 10 mg PO HS [facility] Last Admin: 05/11/17 21:28 Dose: 10 mg Donepezil HCl (Aricept -) 10 mg PO DAILY [facility] Last Admin: 05/12/17 10:25 Dose: 10 mg Duloxetine HCl (Cymbalta -) 30 mg PO DAILY [facility] Last Admin: 05/12/17 10:28 Dose: 30 mg Escitalopram Oxalate (Lexapro -) 10 mg PO DAILY [facility] Last Admin: 05/12/17 10:25 Dose: 10 mg Levothyroxine Sodium (Synthroid -) 150 mcg PO ACBK [facility] Last Admin: 05/12/17 06:15 Dose: 150 mcg Memantine (Namenda -) 10 mg PO DAILY [facility] Last Admin: 05/12/17 10:25 Dose: 10 mg Metoprolol Tartrate (Lopressor -) 12.5 mg PO BID [facility] Last Admin: 05/12/17 10:25 Dose: 12.5 mg Multivitamins/Minerals/Vitamin C (Tab-A-Vit -) 1 tab PO DAILY [facility] Last Admin: 05/12/17 10:25 Dose: 1 tab Potassium Chloride (K-Dur -) 10 meq PO DAILY [facility] Last Admin: 05/12/17 10:25 Dose: 10 meq Microbiology 05/09/17 07:00 Blood - Peripheral Venous Blood Culture - Preliminary NO GROWTH OBTAINED AFTER 72 HOURS, INCUBATION TO CONTINUE FOR 2 DAYS. 05/09/17 07:00 Blood - Peripheral Venous Blood Culture - Preliminary NO GROWTH OBTAINED AFTER 72 HOURS, INCUBATION TO CONTINUE FOR 2 DAYS. 05/09/17 22:00 Stool Salmonella/Shigella Culture - Preliminary NO ENTERIC PATHOGENS, 24 HOURS, ON PRIMARY PLATES 05/09/17 22:00 Stool Yersinia Culture - Final 05/09/17 22:00 Stool Vibrio Culture - Final NO GROWTH OF VIBRIO SPECIES OBTAINED 05/09/17 22:00 Stool Escherichia coli 0157 Culture - Final NO GROWTH OF E COLI 0157 OBTAINED 05/09/17 22:00 Stool Clostridium difficile Antigen (AMARILIS) - Final 05/09/17 22:00 Stool Clostridium difficile Toxin Assay - Final 05/09/17 09:40 Urine For Antigen Detection Legionella Antigen - Final 05/09/17 09:40 Urine For Antigen Detection Streptococcus pneumoniae Antigen (M - Final ASSESSMENT/PLAN: 87yo M with history of Afib (on Coumadin), previous MT, previous CVA, HTN, HLD, and hypothyroidism who presented for altered mental status # Acute encephalopathy --Metabolic vs. polypharmacy (recent codeine initiation for back pain) likely consequence of narcotics --Per daughter, pt at baseline is verbal, walks with cane, has home health aid for ADLs # LBP with radiculopathy -- avoid narcotics -- unable to do MRI due to pts baseline dementia /uncooperative -- Pain management as out patient -- appreciate neuro follow up # Dysarthria -- resolvied # History of CAD / CHF / A.Fib -- KNown to Dr Salazar group - will consult -- on coumadin -- follow INR # Hyperlipidemia --Lipitor 10mg HS # Hypothyroidism --Synthroid 150mcg --TSH 2.33 noted # falls/ dementia -- Neuro consult -- PT for ADL / safety -- coumadin -concerns with falls Problem List - Problems (1) Change in mental status Code(s): R41.82 - ALTERED MENTAL STATUS, UNSPECIFIED (2) Dementia Code(s): F03.90 - UNSPECIFIED DEMENTIA WITHOUT BEHAVIORAL DISTURBANCE (3) A-fib Code(s): I48.91 - UNSPECIFIED ATRIAL FIBRILLATION (4) Fall Code(s): W19.XXXA - UNSPECIFIED FALL, INITIAL ENCOUNTER (5) Hypothyroidism Code(s): E03.9 - HYPOTHYROIDISM, UNSPECIFIED (6) Dehydration Code(s): E86.0 - DEHYDRATION (7) Hypotension Code(s): I95.9 - HYPOTENSION, UNSPECIFIED
[2017-05-12] MEDS ORDERED: oxyCODONE HCL 5 MG TABLET PO ONE (13:00)
[2017-05-12] MEDS ORDERED: ACETAMINOPHEN 325 MG TABLET (FP) PO ONE (13:00)
[2017-05-12] MEDS ORDERED: POTASSIUM CHLORIDE ORAL LIQUID 20 MEQ/15 ML PO ONE (14:13)
--- NOTE | 2017-05-12 15:24 | EKG ---
Test Reason : Blood Pressure : / mmHG Vent. Rate : 069 BPM Atrial Rate : 441 BPM P-R Int : 000 ms QRS Dur : 104 ms QT Int : 446 ms P-R-T Axes : 000 -40 002 degrees QTc Int : 477 ms ATRIAL FIBRILLATION LEFT AXIS DEVIATION ABNORMAL ECG WHEN COMPARED WITH ECG OF 09-MAY-2017 07:02, NO SIGNIFICANT CHANGE WAS FOUND Confirmed by CHANDNI STOCK MD ([id number]) on 05/12/2017 3:23:36 PM Referred By: MAGGIE MARQUEZ Confirmed By:CHANDNI STOCK MD
--- NOTE | 2017-05-12 15:45 | PN ---
Progress Note (short form) - Note Progress Note: Chief Complaint: altered MS History of Present Illness: c/o R hip/coccyx pain no cp, sob, palpit Current Medications Acetaminophen (Tylenol -) 650 mg PO Q6H PRN PRN Reason: PAIN Last Admin: 05/12/17 10:26 Dose: 650 mg Atorvastatin Calcium (Lipitor -) 10 mg PO HS [facility] Last Admin: 05/11/17 21:28 Dose: 10 mg Donepezil HCl (Aricept -) 10 mg PO DAILY [facility] Last Admin: 05/12/17 10:25 Dose: 10 mg Duloxetine HCl (Cymbalta -) 30 mg PO DAILY [facility] Last Admin: 05/12/17 10:28 Dose: 30 mg Escitalopram Oxalate (Lexapro -) 10 mg PO DAILY [facility] Last Admin: 05/12/17 10:25 Dose: 10 mg Levothyroxine Sodium (Synthroid -) 150 mcg PO ACBK [facility] Last Admin: 05/12/17 06:15 Dose: 150 mcg Memantine (Namenda -) 10 mg PO DAILY [facility] Last Admin: 05/12/17 10:25 Dose: 10 mg Metoprolol Tartrate (Lopressor -) 12.5 mg PO BID [facility] Last Admin: 05/12/17 10:25 Dose: 12.5 mg Multivitamins/Minerals/Vitamin C (Tab-A-Vit -) 1 tab PO DAILY [facility] Last Admin: 05/12/17 10:25 Dose: 1 tab Potassium Chloride (K-Dur -) 10 meq PO DAILY [facility] Last Admin: 05/12/17 10:25 Dose: 10 meq - Objective Vital Signs: Vital Signs - 24 hr 05/11/17 05/11/17 05/11/17 15:51 17:35 21:00 Temperature 98.6 F 98.2 F Pulse Rate 78 81 Respiratory 16 18 Rate Blood Pressure 140/78 147/87 O2 Sat by Pulse 93 L Oximetry (%) 05/11/17 05/12/17 05/12/17 22:00 06:00 06:10 Temperature 98 F 98.1 F Pulse Rate 90 Respiratory 20 Rate Blood Pressure 133/87 158/88 O2 Sat by Pulse Oximetry (%) 05/12/17 05/12/17 10:00 15:35 Temperature 98.8 F 98.6 F Pulse Rate 84 70 Respiratory 18 18 Rate Blood Pressure 160/88 143/80 O2 Sat by Pulse Oximetry (%) Intake & Output 05/10/17 05/11/17 05/12/17 05/13/17 07:59 07:59 07:59 07:59 Intake Total 900 1250 250 Output Total 1200 700 Balance 900 50 -700 250 Weight 215 lb Constitutional: Yes: Well Nourished, No Distress, Calm Cardiovascular: Yes: Pulse Irregular, S1, S2. No: Gallop, Murmur Respiratory: Yes: Regular, CTA Bilaterally. No: Accessory Muscle Use, Rales, Wheezes Extremities: No: Cold Edema: No Neurological: Yes: Alert. No: Seizure Psychiatric: No: Agitated Labs: CBC, BMP 05/12/17 05:40 05/12/17 05:40 Assessment/Plan CXR (image reviewed): no vasc congestion; L base obscured ? infiltrate vs effusion EKG: Afib, LAFB, NSTWAs--no old MPI 2012 (joe): no STs. small, mild-to-mod ischemia in [id number] inferolateral wall. nl LVEF, no TID Echo 11/09: 1. Atrial fibrillation. 2. This was a very technically difficult study with suboptimal views. 3. Overall left ventricular systolic function is normal with a visually estimated EF >60 %. Regional wall motion could not be accurately assessed. 4. The RV was not well visualized; chamber size is normal to mildly dilated, systolic function appears normal. 5. The left atrium was not well visualized; probably at least mild to moderately dilated. 6. The right atrium was not well visualized; chamber is probably at least moderately dilated. 7. The aortic root is mildy dilated (4.0 cm at sinuses of Valsalva). 8. Valves not well seen; no evidence of valvular dysfunction present. Afib: -prior CVA history, likely embolic (afib dx'd at that time and AC started) -has been on AC since the stroke -has had 3 falls in past 1 yr approximately, including with head trauma -CHADS VASC is at least 3, perhaps 5-6 (if prior h/o CVA, DC) -in light of pt's recent decline in cognitive status, and uncontrolled fall situation at home, i do not currently think it is safe to continue AC. his statistical likelihood of significant fall with head trauma appears to be higher than his approximate 6%/year risk of stroke. -rec holding AC at present, and if his cognitive status/meaningful qual of life improves, and his falls risk appears stable at that time, then can resume AC At that time. -LA appendage closure (Watchman device) is an alternative option, but given the invasive nature and need for anesthesia (with risk of cognitive worsening as well), would not pursue this unless mental status stabilizes. -office f/u with me -HR well controlled. cont metoprolol home dose CAD, s/p CABG 2005; -no angina -small area of low-risk ischemia on prior outpt nuclear, as above -cont home meds HTN: -bp mostly controlled -cont home meds HPL: -cont home statin dementia, acute MS changes: -? worsening of chronic problem (OMS) -infectious w/u per dr gale. UA appears bland. ? LLL infiltrate hiding behind heart on CXR (though lung exam is benign) -TSH normal
[2017-05-12] MEDS: ATORVASTATIN CA 10 MG TABLET (FP) PO SCH (23:28)
[2017-05-13] MEDS: LEVOTHYROXINE NA 150 MCG TABLET PO SCH (06:26)
[2017-05-13 08:12] LABS: INR 2.22 (0.82-1.09); PROTHROMBIN TIME (PATIENT) 25.1 SEC (9.98-11.88)
[2017-05-13] MEDS: METOPROLOL TARTRATE 25 MG TABLET (FP) PO SCH (12:14)
[2017-05-13] MEDS: MULTIVITAMINS (DAILY MVI) TABLET (FP) PO SCH (12:15)
[2017-05-13] MEDS: ESCITALOPRAM OXALATE 10 MG TABLET (FP) PO SCH (12:15)
[2017-05-13] MEDS: MEMANTINE HCL 10 MG TABLET (FP) PO SCH (12:15)
[2017-05-13] MEDS: DULoxetine HCL 30 MG CAPSULE.DR (FP) PO SCH (12:15)
[2017-05-13] MEDS: POTASSIUM CHLORIDE TABS 10 MEQ TABLET.ER (FP) PO SCH (12:16)
[2017-05-13] MEDS: ACETAMINOPHEN 325 MG TABLET (FP) PO PRN (12:16)
[2017-05-13] MEDS: DONEPEZIL HCL 10 MG TABLET (FP) PO SCH (12:17)
--- NOTE | 2017-05-13 14:38 | DS ---
Physical Examination Vital Signs: Vital Signs Temperature 97.6 F 05/13/17 06:00 Pulse Rate 71 05/13/17 11:08 Respiratory Rate 20 05/13/17 06:00 Blood Pressure 146/88 05/13/17 06:00 O2 Sat by Pulse Oximetry (%) 97 05/13/17 11:08 Findings/Remarks: 87yo M with history of Afib (on Coumadin), previous MA, previous CVA, HTN, HLD, and hypothyroidism who presented to ER with altered mental status. Patient with hx of falls - recent fall with head trauma seen at [facility] -CT neg at that time for acute injury. Per the daughter, pt has been altered since 04/30/17, however has had cognitive decline in the recent past. Per family has had significant increase in lower back pain, in attept to manage pain was stated on codeine. Once on pain management developed constipation and further deterioration of cognitive status . Pt has a 24-hour home health aide who reported to the daughter that the pt has been having decreased PO intake recently. Daughter further offers hx of depression / suicidal ideation / hallucinations / along with cognitive decline During hosp stay regained some clarity of cognition but remains forgetful. He was evaluated by PT -- unable to ambulate due to pain / was also evaluated by neurology. All in agreement to avoid narcotic use due to side effects. Patient has A. fib and had been on coumadin -- in view of attempt to ambulate and improve his gait, coumadin has been on hold since he is at very high risk for falls. Coumadin or NOAC should be reconsidered if functional capacity improves and ambulation is safe. Constitutional: Yes: Well Nourished, No Distress Eyes: Yes: Conjunctiva Clear, EOM Intact HENT: Yes: Atraumatic, Normocephalic Neck: Yes: Supple, Trachea Midline Cardiovascular: Yes: Pulse Irregular Respiratory: Yes: CTA Bilaterally Gastrointestinal: Yes: Normal Bowel Sounds, Soft ...Rectal Exam: Yes: Deferred Renal/: Yes: WNL Musculoskeletal: Yes: Back Pain, Muscle Pain Extremities: Yes: Cyanosis. No: Cold, Deformity, Erythema Edema: No Peripheral Pulses: Left Radial: 2+, Right Radial: 2+, Left Doralis Pedis: 2+, Right Dorsalis Pedis: 2+, Left Femoral: 2+, Right Femoral: 2+ Integumentary: Yes: WNL Neurological: Yes: Alert, Oriented, Confusion, Pre-Existing Deficit, Unsteady Gait Labs: CBC, BMP 05/12/17 05:40 05/12/17 05:40 Discharge Summary Reason For Visit: PNEUMONIA, AMA & DEHYDRATION Current Active Problems A-fib (Acute) Change in mental status (Acute) Dehydration (Acute) Dementia (Acute) Fall (Acute) Hypotension (Acute) Hypothyroidism (Acute) Pneumonia (Acute) Condition: Fair - Instructions Diet, Activity, Other Instructions: need futher evaluation for transfer / possibility of ambulation then re asses treatment for a/c. Pain management consult recommended as may benefit from epidural Disposition: LONG-TERM FACILITY - Home Medications Comprehensive Discharge Medication List: Ambulatory Orders Calcium Carb/Mag Ox/Zinc Sulf [[id number]-[id number] Tablet] 1 each PO DAILY Cholecalciferol (Vitamin D3) [Vitamin D3] 2,000 unit PO DAILY 07/14/16 Donepezil HCl [Aricept] 10 mg PO DAILY 07/14/16 Escitalopram Oxalate [Lexapro -] 10 mg PO DAILY 07/14/16 Furosemide [Lasix] 40 mg PO DAILY 07/14/16 Levothyroxine [Synthroid -] 150 mcg PO ACBK 07/14/16 Lisinopril 10 mg PO DAILY 07/14/16 Memantine HCl [Namenda -] 10 mg PO DAILY 07/14/16 Mesalamine [Lialda] 1.2 gm PO BID 07/14/16 Metoprolol Tartrate [Lopressor -] 25 mg PO BID 07/14/16 Multivitamin [Poly-Vitamin] 1 each PO DAILY 07/14/16 Lyman-3 Fatty Acids [Fish Oil] 1 mg PO BID 07/14/16 Potassium Chloride [K-Dur -] 10 meq PO DAILY 07/14/16 Simvastatin 10 mg PO DAILY 07/14/16 Warfarin Sodium [Coumadin] 5 mg PO DAILY 07/14/16 --- on hold due to risk of falls
[2017-05-13 17:38] VITALS: BP 137/80; PULSE 81; TEMP 97.8
--- NOTE | 2017-05-13 17:55 | PN ---
Progress Note (short form) - Note Progress Note: Patient reportedly confused since April 26. He has been complaing of severe pain radiating down his right leg and was recently started on codeine at [facility]. Progressive confusion led to his admission here, where codeine was discontinued. He doesn't recall coming to the hospital and has apparently improved since arrival. He has a history of Afib, prior stroke. FU: HIP X RAY An AP view the pelvis and images of the right hip reveal no sign of fracture or subluxation. Blastic or lytic changes are not seen. There are degenerative hip changes, left greater than right. There are vascular calcifications and retained stool. The SI joints are patent. If symptoms persist , further imaging may be of help. Impression: No acute pathology. CT LS SPINE : IMPRESSION: A mild biconcave L4 vertebral body compression fracture is seen without bony retropulsion. This fracture may be acute in nature as there is apparent mild subtle bilateral paravertebral soft tissue edema at the level of the L4 vertebral body. Correlate clinically and with follow-up MRI or CT. A chronic moderate to marked biconcave L3 vertebral right compression fracture is noted with minimal bony retropulsion. There is prominent multilevel bilateral degenerative facet arthropathy. Secondary to degenerative facet hypertrophy there is marked narrowing of the right L4-L5 extraforaminal zone. The L3-L4 level demonstrates moderate to marked central canal stenosis and moderate to marked bilateral subarticular canal/lateral recess stenosis. Diffuse osteoporosis. Partial imaging of a left and possibly right-sided pleural effusions. Correlate with radiography. Cholelithiasis resting comfrotable though when attempt to walk, pain in the Right leg hip (hip to thighh) no focal weakness of leg no numbness awake and conversive though ahs baseline dementia - Current Medication List Current Medications: Active Medications Acetaminophen (Tylenol -) 650 mg PO Q6H PRN PRN Reason: PAIN Last Admin: 05/11/17 06:51 Dose: 650 mg Atorvastatin Calcium (Lipitor -) 10 mg PO HS [facility] Last Admin: 05/10/17 21:27 Dose: 10 mg Donepezil HCl (Aricept -) 10 mg PO DAILY [facility] Last Admin: 05/10/17 10:14 Dose: 10 mg Escitalopram Oxalate (Lexapro -) 10 mg PO DAILY [facility] Last Admin: 05/10/17 10:14 Dose: 10 mg Levothyroxine Sodium (Synthroid -) 150 mcg PO ACBK [facility] Last Admin: 05/11/17 06:27 Dose: 150 mcg Memantine (Namenda -) 10 mg PO DAILY [facility] Last Admin: 05/10/17 10:14 Dose: 10 mg Metoprolol Tartrate (Lopressor -) 12.5 mg PO BID [facility] Last Admin: 05/10/17 21:27 Dose: 12.5 mg Multivitamins/Minerals/Vitamin C (Tab-A-Vit -) 1 tab PO DAILY [facility] Last Admin: 05/10/17 10:14 Dose: 1 tab Potassium Chloride (K-Dur -) 10 meq PO DAILY [facility] Last Admin: 05/10/17 10:14 Dose: 10 meq Warfarin Sodium (Coumadin -) 5 mg PO DAILY@1800 [facility] Last Admin: 05/10/17 17:45 Dose: Not Given - Objective Vital Signs: Vital Signs Temperature 98.1 F 05/12/17 06:00 Pulse Rate 90 05/11/17 22:00 Respiratory Rate 20 05/11/17 22:00 Blood Pressure 158/88 05/12/17 06:10 O2 Sat by Pulse Oximetry (%) 93 L 05/11/17 21:00 Neurological: Yes: Oriented, Babinski negative, Cran Nerves II-XII Intact ...Motor Strength: WNL, fasciculation R TA and gastrocnemius Labs: CBCD WBC 9.0 K/mm3 (4.0-10.0) 05/12/17 05:40 RBC 4.95 M/mm3 (4.00-5.60) 05/12/17 05:40 Hgb 15.0 GM/dL (11.7-16.9) 05/12/17 05:40 Hct 44.7 % (35.4-49) 05/12/17 05:40 MCV 90.3 fl (80-96) 05/12/17 05:40 MCHC 33.5 g/dl (32.0-35.9) 05/12/17 05:40 RDW 15.1 % (11.9-15.9) 05/12/17 05:40 Plt Count 228 K/MM3 (134-434) 05/12/17 05:40 MPV 8.3 fl (7.5-11.1) 05/12/17 05:40 CMP Sodium 141 mmol/L (136-145) 05/12/17 05:40 Potassium 3.6 mmol/L (3.5-5.1) 05/12/17 05:40 Chloride 106 mmol/L (98-107) 05/12/17 05:40 Carbon Dioxide 24 mmol/L (21-32) 05/12/17 05:40 Anion Gap 11 (8-16) 05/12/17 05:40 BUN 11 mg/dL (7-18) 05/12/17 05:40 Creatinine 0.5 mg/dL (0.7-1.3) L 05/12/17 05:40 Creat Clearance w eGFR > 60 (>60) 05/09/17 07:00 Calcium 8.3 mg/dL (8.5-10.1) L 05/12/17 05:40 Total Bilirubin 1.8 mg/dL (0.2-1.0) H 05/09/17 07:00 AST 45 U/L (15-37) H 05/09/17 07:00 ALT 41 U/L (12-78) 05/09/17 07:00 Alkaline Phosphatase 157 U/L (45-117) H 05/09/17 07:00 Total Protein 7.1 g/dl (6.4-8.2) 05/09/17 07:00 Albumin 3.3 g/dl (3.4-5.0) L 05/09/17 07:00 - ....Imaging MRI: Pending (lumbosacral spine) Problem List - Problems (1) Change in mental status Code(s): R41.82 - ALTERED MENTAL STATUS, UNSPECIFIED (2) A-fib Code(s): I48.91 - UNSPECIFIED ATRIAL FIBRILLATION (3) Dementia Code(s): F03.90 - UNSPECIFIED DEMENTIA WITHOUT BEHAVIORAL DISTURBANCE Assessment/Plan 87 year old man, likely with baseline dementia, recently fell and has lumbar / hip pain R. check HIP XRAY R if cant tolerate MRI, get CT LS spine give one time percocet dose for scan. coumadin on hold. rehab Dr Weldon
== END 2017-05-13 18:39 | DRG 551 ==
LOC: JER 06:14 → UNDOADMIN 08:52 → JERBED 08:52 → J8W 15:13
PROVIDERS: ADMIT Internal Medicine; ATTEND Family Medicine
DX: S32.048A Other fracture of fourth lumbar vertebra, initial encounter for closed fracture (principal); G92 Toxic encephalopathy; J90 Pleural effusion, not elsewhere classified; I48.0 Paroxysmal atrial fibrillation; I48.91 Unspecified atrial fibrillation; I10 Essential (primary) hypertension; E78.00 Pure hypercholesterolemia, unspecified; M48.061 Spinal stenosis, lumbar region without neurogenic claudication; E03.9 Hypothyroidism, unspecified; I25.10 Atherosclerotic heart disease of native coronary artery without angina pectoris; E86.0 Dehydration; F03.90 Unspecified dementia, unspecified severity, without behavioral disturbance, psychotic disturbance, mood disturbance, and anxiety; M81.8 Other osteoporosis without current pathological fracture; I95.89 Other hypotension; M54.16 Radiculopathy, lumbar region; I25.2 Old myocardial infarction; A08.8 Other specified intestinal infections; M54.89 Other dorsalgia; F32.89 Other specified depressive episodes; R47.1 Dysarthria and anarthria; T40.2X5A Adverse effect of other opioids, initial encounter; Z86.73 Personal history of transient ischemic attack (TIA), and cerebral infarction without residual deficits; Z87.891 Personal history of nicotine dependence; Z79.01 Long term (current) use of anticoagulants; Z95.1 Presence of aortocoronary bypass graft; W18.39XA Other fall on same level, initial encounter; Y92.098 Other place in other non-institutional residence as the place of occurrence of the external cause
CPT/HCPCS: 36415; 70450-TC; 71045-TC; 72100-TC; 72131-TC; 73523-TC; 80048; 80053; 81003; 82550; 82553; 83735; 84100; 84443; 84484; 85025; 85027; 85610; 85730; 86738; 87040; 87045; 87046; 87177; 87209; 87324; 87449; 87899; 93005; 93010; 97116-GP; 97162-GP; 99285-25

== ENCOUNTER 2018-07-02 00:31 | Emergency (ER) | payer OTHER ==
[2018-07-02 00:38] VITALS: BMI 29.9
[2018-07-02] MEDS ORDERED: ONDANSETRON *ODT* 4 MG TABLET SL ONE (01:11)
[2018-07-02] MEDS ORDERED: RANITIDINE HCL 150 MG TABLET (FP) PO ONE (01:11)
--- NOTE | 2018-07-02 01:42 | PDOC ---
History of Present Illness - General Chief Complaint: Nausea/Vomiting Stated Complaint: NAUSEA VOMITING Time Seen by Provider: 07/02/18 00:40 - History of Present Illness Initial Comments: Mumtaz Serrano is an 88yo man with a PMH of afib on warfarin, previous SD, previous CVA, HTN, HLD, and hypothyroidism who presents with vomiting. He states that he was feeling well all day, able to eat all his meals normally, but he started to feel nauseated around midnight. He states that he had an "attack of gas" and finally vomited about 45 minutes after starting to feel sick. He has continued to burp since then, but he has had no additional episodes of emesis. His aide called an ambulance to bring him to the ED because Mr Serrano has never had anything similar happen before, and he also thought that he didnt' look well. Neither Mr Serrano or his aide remember what medications he takes, but he has been taking everything prescribed. He denies any recent fevers, chills, cough, chest pain, lightheadedness, SOB, diarrhea/constipation, or urinary symptoms. Past History - Past Medical History Allergies/Adverse Reactions: Allergies Allergy/AdvReac Type Severity Reaction Status Date / Time No Known Allergies Allergy Verified 05/09/17 08:09 Home Medications: Ambulatory Orders Calcium Carb/Mag Ox/Zinc Sulf [Zoqfmrr-Sejdthawq-Acub Tablet] 1 each PO DAILY Cholecalciferol (Vitamin D3) [Vitamin D3] 2,000 unit PO DAILY 07/14/16 Donepezil HCl [Aricept] 10 mg PO DAILY 07/14/16 Escitalopram Oxalate [Lexapro -] 10 mg PO DAILY 07/14/16 Furosemide [Lasix] 40 mg PO DAILY 07/14/16 Levothyroxine [Synthroid -] 150 mcg PO ACBK 07/14/16 Lisinopril 10 mg PO DAILY 07/14/16 Memantine HCl [Namenda -] 10 mg PO DAILY 07/14/16 Mesalamine [Lialda] 1.2 gm PO BID 07/14/16 Metoprolol Tartrate [Lopressor -] 25 mg PO BID 07/14/16 Multivitamin [Poly-Vitamin] 1 each PO DAILY 07/14/16 [place]-3 Fatty Acids [Fish Oil] 1 mg PO BID 03/21/17 Simvastatin 10 mg PO DAILY 07/14/16 Acetaminophen [Tylenol .Regular Strength -] 650 mg PO Q6H PRN tablet 05/13/17 Metoprolol Tartrate [Lopressor -] 12.5 mg PO BID tablet 05/13/17 Cardiac Disorders: Yes (AFIB: ON COUMADIN, SD, CAD) CVA: Yes Dementia: Yes HTN: Yes Hypercholesterolemia: Yes Thyroid Disease: Yes (HYPOTHYROIDISM) - Immunization History Immunization Up to Date: Yes - Suicide/Smoking/Psychosocial Hx Smoking History: Unknown if ever smoked Have you smoked in the past 12 months: No Hx Alcohol Use: No Drug/Substance Use Hx: No Substance Use Type: None Review of Systems - Review of Systems Comments:: General: No fevers, no chills, no weight or appetite change, no malaise HEENT: No changes in vision, no changes in hearing, no congestion, no sore throat CV: No chest pain, no palpitations, no LE edema Pulm: No SOB, no cough, no wheezing GI: +nausea/vomiting, no change in bowel habits, no melena : No frequency, no urgency, no dysuria Musc: No back pain, no joint swelling, no recent injury Skin: No rash, no lesions, no erythema Endo: No excessive thirst, no heat/cold intolerance Heme: No unusual bruising or bleeding, no swollen glands Neuro: No syncope, no numbness/tingling, no focal weakness Vasc: No claudication Psych: No recent change in mood, no SI or HI *Physical Exam - Vital Signs Last Vital Signs Temp Pulse Resp BP Pulse Ox 97.1 F L 74 20 164/73 99 07/02/18 00:34 07/02/18 00:34 07/02/18 00:34 07/02/18 00:34 07/02/18 00:34 - Physical Exam Comments: General: Comfortable, no acute distress HEENT: PERRL, EOMI, MMM, voice normal, normal neck ROM, no LAD Cards: Irregular, no murmur appreciated Pulm: Comfortable on room air, clear to auscultation bilaterally Abd: Soft, nontender, nondistended Ext: Atraumatic. No LE edema. ROM intact. Strength equal bilaterally Vasc: Extremities WWP Skin: Normal color, no rashes or lesions Neuro: A&Ox3, CN grossly intact, normal speech, motor/sensory grossly intact and symmetric Psych: Mood appropriate to situation Moderate Sedation - Procedure Monitoring Vital Signs: Procedure Monitoring Vital Signs Temperature 97.1 F L 07/02/18 00:34 Pulse Rate 74 07/02/18 00:34 Respiratory Rate 20 07/02/18 00:34 Blood Pressure 164/73 07/02/18 00:34 O2 Sat by Pulse Oximetry (%) 99 07/02/18 00:34 ED Treatment Course - LABORATORY CBC & Chemistry Diagram: 07/02/18 03:00 07/02/18 03:00 Medical Decision Making - Medical Decision Making 07/02/18 01:36 Mumtaz Serrano is an 88yo man with a PMH of afib on warfarin, previous SD, previous CVA, HTN, HLD, and hypothyroidism who presents with an episode of vomiting that occurred about 45 minutes prior to presentation. He no longer has any nausea or any other symptoms. - Given history, EKG ordered to rule out cardiac causes of vomiting - Zofran and ranitidine ordered for symptoms - Will re-evaluate after meds and EKG 07/02/18 01:50 - Seen by Dr Laurent. Pt's aide reports that Mr Serrano was diaphoretic and uncomfortable for about 45 minutes prior to vomiting, which is why he called EMS - Will check trop now and in 2-3 hours. CBC, CMP to r/o abnormalities 07/02/18 05:00 - Labs completed, reviewed. No concerning abnormalities. Trop negative. - Patient now feels completely well, requesting to go home. Advised that he should have a second troponin sent - Repeat trop ordered. If negative, will d/c 07/02/18 06:44 - Repeat trop also negative, 0.02 - Will d/c home. Discussed home care, return precautions, follow up with Mr Serrano and his aide. Both understand and agree. Discussed with Dr Laurent. Bhavya Houston PGY1 *DC/Admit/Observation/Transfer Diagnosis at time of Disposition: Vomiting - Discharge Dispostion Disposition: HOME Condition at time of disposition: Stable Decision to Admit order: No - Referrals Referrals: [facility] [place] [facility] [place] [Provider Group] - Patient Instructions Printed Discharge Instructions: DI for Vomiting -- Adult Additional Instructions: Discharge Instructions: You were seen in the emergency department for vomiting. You had blood tests and an EKG to check that the vomiting was not caused by a problem with your heart. All of your results were normal, and your symptoms improved with nausea medication. Home Care: - Continue to take all of your home medications as previously prescribed. - Make sure you are drinking plenty of fluids. If you continue to feel nauseated and do not have an appetite, it is OK to not eat for a day or two as long as you are staying hydrated. - If you have frequent nausea or heartburn, you may want to talk to your regular doctor about staring a acid medication such as Pepcid or Xantac. These are available over the counter, but you should ask your doctor if it is OK to start any new medications. Follow Up: - Make an appointment to see your regular doctor within the next week. You have been referred to the medicine clinic if you need to establish care. - Seek immediate medical care if your symptoms worsen, you have severe vomiting that prevents you from eating or drinking, you become lightheaded, you have chest pain, shortness of breath, one-sided weakness or numbness, or you have any medical emergency. - Post Discharge Activity
--- NOTE | 2018-07-02 01:43 | PDOC ---
Attending Attestation - Resident Resident Name: CelsoBhavya - ED Attending Attestation I have performed the following: I have examined & evaluated the patient, The case was reviewed & discussed with the resident, I agree w/resident's findings & plan, Exceptions are as noted - HPI HPI: 07/02/18 01:43 88y M hx of afib on coumadin, previous CVA, htn, hl, hypothyroidism presents to the ED s/p vomiting. Patient states that earlier today he was doing fine approximately 11:00 aide noted the patient was very nauseous, dry heaving, diaphoretic the patient vomited once food contents and has since felt better. P denies any cp, sob, lopez, leg swelling, orthopnea, fever/chills, sangeeta abd pain, back pain, headache, dizziness. pt recently had a biopsy of the skin on his l face, no pain or discharge per aide, pt has never had this before. Social History: former smoker GENERAL: The patient is awake, alert, and oriented to self and palce Nontoxic - in no acute distress. HEAD: Normocephalic, atraumatic, EYES: extraocular movements intact, sclera anicteric, conjunctiva clear. ENT: Normal voice, Moist mucous membranes. NECK: Normal range of motion, supple LUNGS: Breath sounds equal, clear to auscultation bilaterally. No wheezes, no rhonchi, no rales. HEART: Regular rate and rhythm, normal S1 and S2 without murmur, rub or gallop. ABDOMEN: Soft, nontender, normoactive bowel sounds. No guarding, no rebound. . No CVA tenderness EXTREMITIES: Normal range of motion, no edema. NEUROLOGICAL: No facial assymetry, Normal speech, PSYCH: Normal mood, normal affect. SKIN: Warm, Dry, normal turgor, bandage on L face with sutures that are intact and c/d/i, no erythema/induration ddx - possible indigestion, consider possible atypical ACS based on age and risk factors will obtain trop x 2, basic labs ekg, if neg and pt is asypmtmoatic anticipate dc with outpatient mangement Heart Score/ECG Review - ECG Impressions Comment:: 07/02/18 01:54 Twelve-lead EKG was performed and reviewed by me. Irregularly irregular Rate of 66 QTC interval of [address]-T wave changes suggestive of acute ischemia occasional PVC noted
[2018-07-02 03:32] LABS: BASO % 0.5 % (0-2.0); EOS % 0.2 % (0-4.5); HEMATOCRIT 41.9 % (35.4-49); HEMOGLOBIN 14.7 GM/dL (11.7-16.9); MCH 30.8 pg (25.7-33.7); MEAN PLT VOLUME 7.9 fl (7.5-11.1); NEUT % 91.3 % (42.8-82.8); PLATELET COUNT 213 K/MM3 (134-434); RBC 4.76 M/mm3 (4.00-5.60); RDW 14.5 % (11.9-15.9); WHITE BLOOD COUNT 11.4 K/mm3 (4.0-10.0)
[2018-07-02] MEDS ORDERED: RANITIDINE HCL 150 MG TABLET (FP) ONE (03:36)
[2018-07-02] MEDS ORDERED: ONDANSETRON *ODT* 4 MG TABLET ONE (03:37)
[2018-07-02 04:14] LABS: ALBUMIN 3.4 g/dl (3.4-5.0); ALK PHOS 119 U/L (45-117); ANION GAP 6 MMOL/L (8-16); BILIRUBIN,TOTAL 1.3 mg/dL (0.2-1); BLOOD UREA NITROGEN 21 mg/dL (7-18); CALCIUM 8.3 mg/dL (8.5-10.1); CHLORIDE 100 mmol/L (98-107); CO2 29 mmol/L (21-32); CREATININE 0.8 mg/dL (0.55-1.3); GLUCOSE,RANDOM 127 mg/dL (74-106); POTASSIUM 4.3 mmol/L (3.5-5.1); SGOT/AST 24 U/L (15-37); SGPT/ALT 19 U/L (13-61); SODIUM 136 mmol/L (136-145); TOT PROT 7.4 g/dl (6.4-8.2)
[2018-07-02 08:43] VITALS: BP 142/80; PULSE 70; TEMP 97.5
[2018-07-02 17:06] LABS: ANISOCYTOSIS 0; MACROCYTOSIS 0; PLATELET ESTIMATE NORMAL
--- NOTE | 2018-07-03 11:56 | EKG ---
Test Reason : Blood Pressure : / mmHG Vent. Rate : 066 BPM Atrial Rate : 043 BPM P-R Int : 000 ms QRS Dur : 116 ms QT Int : 482 ms P-R-T Axes : 000 -29 021 degrees QTc Int : 505 ms ATRIAL FIBRILLATION PROLONGED QT ABNORMAL ECG WHEN COMPARED WITH ECG OF 12-MAY-2017 14:29, NONSPECIFIC T WAVE ABNORMALITY NO LONGER EVIDENT IN ANTERIOR LEADS Confirmed by PATTI STEWART, EVONNE ([id number]) on 07/03/2018 11:55:54 AM Referred By: Confirmed By:EVONNE ARMSTRONG MD
== END 2018-07-02 08:50 | disposition home or self-care (01) ==
LOC: JER 00:31
DX: R11.10 Vomiting, unspecified (principal); I25.10 Atherosclerotic heart disease of native coronary artery without angina pectoris; I10 Essential (primary) hypertension; I25.2 Old myocardial infarction; I48.91 Unspecified atrial fibrillation; Z79.01 Long term (current) use of anticoagulants; E78.00 Pure hypercholesterolemia, unspecified; E03.8 Other specified hypothyroidism; Z86.73 Personal history of transient ischemic attack (TIA), and cerebral infarction without residual deficits
CPT/HCPCS: 36415; 80053; 82550; 82553; 84484; 85025; 93005; 93010; 99282-25; Q0162

== ENCOUNTER 2018-09-22 14:36 | Inpatient (IN) | payer OTHER ==
[2018-09-22 16:28] LABS: BASO % 0.6 % (0-2.0); EOS % 0.1 % (0-4.5); HEMATOCRIT 46.1 % (35.4-49); HEMOGLOBIN 15.3 GM/dL (11.7-16.9); LYMPH % 3.8 % (8-40); MCH 29.3 pg (25.7-33.7); MCHC 33.2 g/dl (32.0-35.9); MEAN CELL VOLUME 88.3 fl (80-96); MEAN PLT VOLUME 8.4 fl (7.5-11.1); MONO % 6.2 % (3.8-10.2); NEUT % 89.3 % (42.8-82.8); PLATELET COUNT 222 K/MM3 (134-434); RBC 5.22 M/mm3 (4.00-5.60); RDW 14.6 % (11.9-15.9); WHITE BLOOD COUNT 12.3 K/mm3 (4.0-10.0)
--- NOTE | 2018-09-22 16:28 | PDOC ---
Documentation entered by Joann Balderas SCRIBE, acting as scribe for Alanna Macedo DO. Alanna Macedo DO: This documentation has been prepared by the Andrey tafoya Daisy, SCRIBE, under my direction and personally reviewed by me in its entirety. I confirm that the documentation accurately reflects all work, treatment, procedures, and medical decision making performed by me. Attending Attestation - Resident Resident Name: DianashannonJareth - ED Attending Attestation I have performed the following: I have examined & evaluated the patient, The case was reviewed & discussed with the resident, I agree w/resident's findings & plan - HPI HPI: 09/22/18 16:11 The patient is a 88YOM with a PMH of afib on coumadin, previous CVA, HTN, HLD, hypothyroidism who presents to the ED s/p fall 2 days ago. Patient states he was sitting on a chair when he accidentally fell forward and injured his head and back with the chair. Patient is complaining of low back pain. Denies LOC. Denies loss of bladder or bowel control. Allergies: NKDA Social Hx: Former smoker. - Physicial Exam PE: 09/22/18 16:40 Constitutional: Awake, alert oriented to person and place. Head: Normocephalic. Atraumatic Eyes: PERRL. EOMI. Conjunctivae are not pale. ENT: Mucous membranes are moist and intact. Posterior pharynx without exudates or erythema. Uvula midline. (+) Hard of hearing. Neck: Supple. Full ROM. No lymphadenopathy. Cardiovascular: Regular rate. Regular rhythm. S1, S2 regular. Distal pulses are 2+ and symmetric. Pulmonary/Chest: No evidence of respiratory distress. Clear to auscultation bilaterally No wheezing, rales or rhonchi. Abdominal: Soft and non-distended. There is no tenderness. No rebound, guarding or rigidity. No organomegaly. Good bowel sounds. (+) Palpable incisional hernia. Back: No paraspinal tenderness. Exam limited as patient is unable to roll over 2 /2 pain. Musculoskeletal: Pelvis is stable. No edema. No cyanosis. No clubbing. Full range of motion in all extremities. No calf tenderness. Radial/pedal pulses are intact and 2+ bilaterally Skin: Skin is warm and dry. Neurological: Alert and oriented to person and place. Cranial nerves II-XII are grossly intact. Normal speech. Strength is grossly symmetric. No sensory deficits. Psychiatric: Good eye contact. Normal interaction, affect and behavior. - Medical Decision Making 09/22/18 16:23 I, Dr. Alanna Macedo, DO, attest that this document has been prepared under my direction and personally reviewed by me in its entirety. I further attest, that it accurately reflects all work, treatment, procedures and medical decision -making performed by me. 09/22/18 16:23 a/p: 88yo male with lbp after a fall out of a chair -pt with worsening lbp, no radiation, no loss of control bowel/bladder -pt able to range legs -will obtain ct imaging of head, c spine, l spine -pt on coumadin, will send labs -denies loc -will call [facility] and daughter 09/22/18 17:23 elevated wbc trop neg ua pending pt needs ct imaging 09/22/18 19:06 no acute findings on head or c spine 09/22/18 19:22 acute t11 compression fracture call placed to DR. Llamas for admission 09/22/18 19:36 resident discussed the case with Dr. Llamas who accepts pt to service Heart Score/ECG Review - ECG Intrepretation Comment:: 09/22/18 16:37 afib at 75, l axis, no acute st/t wave findings
--- NOTE | 2018-09-22 16:31 | PDOC ---
History of Present Illness - General Chief Complaint: Injury Stated Complaint: FALL/BACK PAIN Time Seen by Provider: 09/22/18 15:43 History Source: Patient Exam Limitations: No Limitations - History of Present Illness Initial Comments: 09/22/18 16:10 88 yo male from [facility], [facility] fib on coumadin, previous CVA, htn, chf, UC, HLD, hypothyroidism and dementia (baseline AOX1) for an unwitnessed fall and complaints of lower back pain. Spoke with nurse Taylor at [facility], states pt was ambulating at baseline with his rolling walker prior to breakfast, later admitted to an unwitnessed fall and can no longer ambulate due to lower back pain. Pt states he was seated, bent over trying to pick something up off the floor, fell out of his chair, hit his head and complained of sudden onset midline back tenderness. Denies LOC, YUN, changes in vision/speech, weakness on 1 side of his body, N/V/F/C. Past History - Past Medical History Allergies/Adverse Reactions: Allergies Allergy/AdvReac Type Severity Reaction Status Date / Time No Known Allergies Allergy Verified 09/22/18 15:03 Home Medications: Ambulatory Orders Calcium Carb/Mag Ox/Zinc Sulf [Wgvkszp-Wqxnjdowr-Aoyp Tablet] 1 each PO DAILY Cholecalciferol (Vitamin D3) [Vitamin D3] 2,000 unit PO DAILY 07/14/16 Donepezil HCl [Aricept] 10 mg PO DAILY 07/14/16 Escitalopram Oxalate [Lexapro -] 20 mg PO DAILY 07/14/16 Furosemide [Lasix] 20 mg PO BID 07/14/16 Levothyroxine [Synthroid -] 150 mcg PO ACBK 07/14/16 Memantine HCl [Namenda -] 10 mg PO DAILY 07/14/16 Multivitamin [Poly-Vitamin] 1 each PO DAILY 07/14/16 Simvastatin 10 mg PO DAILY 07/14/16 Metoprolol Tartrate [Lopressor -] 12.5 mg PO BID tablet 05/13/17 Mesalamine [Apriso] 0.375 gm PO BID 09/22/18 Warfarin Sodium [Coumadin] 3 mg PO DAILY 09/22/18 Cardiac Disorders: Yes (AFIB: ON COUMADIN, [place], CAD) CVA: Yes COPD: No Dementia: Yes HTN: Yes Hypercholesterolemia: Yes Thyroid Disease: Yes (HYPOTHYROIDISM) - Immunization History Immunization Up to Date: Yes - Suicide/Smoking/Psychosocial Hx Smoking History: Never smoked Have you smoked in the past 12 months: No Information on smoking cessation initiated: No Hx Alcohol Use: No Drug/Substance Use Hx: No Substance Use Type: None Review of Systems - Review of Systems Constitutional: No: Chills, Fever HEENTM: No: Blurred Vision, Double Vision Respiratory: No: Shortness of Breath Cardiac (ROS): No: Chest Pain, Edema ABD/GI: No: Constipated, Diarrhea, Nausea, Vomiting : No: Burning, Dysuria, Discharge, Flank Pain, Hematuria Musculoskeletal: Yes: Back Pain *Physical Exam - Vital Signs Last Vital Signs Temp Pulse Resp BP Pulse Ox 98.2 F 57 L 18 163/84 95 09/22/18 15:00 09/22/18 15:00 09/22/18 15:00 09/22/18 15:00 09/22/18 15:00 ED Treatment Course - LABORATORY CBC & Chemistry Diagram: 09/22/18 16:15 09/22/18 16:15 - RADIOLOGY Radiology Studies Ordered: Category Date Time Status HEAD CT WITHOUT CONTRAST [CT] Stat CT Scan 09/22/18 16:06 Ordered CHEST X-RAY PORTABLE* [RAD] Stat Radiology 09/22/18 16:06 Ordered Medical Decision Making - Medical Decision Making 09/22/18 19:23 88 yo male from [facility], h fib on coumadin, previous CVA, htn, chf, UC, HLD, hypothyroidism and dementia (baseline AOX1) for an unwitnessed fall and complaints of lower back pain. Spoke with nurse Taylor at [facility], states pt was ambulating at baseline with his rolling walker prior to breakfast, later admitted to an unwitnessed fall and can no longer ambulate due to lower back pain. Pt states he was seated, bent over trying to pick something up off the floor, fell out of his chair, hit his head and complained of sudden onset midline back tenderness. Denies LOC, YUN, changes in vision/speech, weakness on 1 side of his body, N/V/F/C. Vitals WNL Pain controlled with morphine 4 mg Head and C spine neg for acute path Lumbar CT shows T 11 vertebral body fracture 09/22/18 19:[address] Llamas, agrees to admit pt to inpatient med surg and will consult Ortho and Anesthesia for pain control. Pt will be NPO to prevent aspiration *DC/Admit/Observation/Transfer Diagnosis at time of Disposition: Closed fracture of thoracic vertebral body - Discharge Dispostion Condition at time of disposition: Stable Decision to Admit order: Yes - Referrals - Patient Instructions - Post Discharge Activity
[2018-09-22] MEDS ORDERED: morphine SULFATE 4 MG/ML VIAL IVPUSH ONE (16:36)
[2018-09-22 16:45] LABS: INR 2.62 (0.83-1.09); PROTHROMBIN TIME (PATIENT) 31.2 SEC (9.7-13.0)
[2018-09-22 16:48] LABS: ACTIVATED PTT 41.6 SECONDS (25.2-36.5)
[2018-09-22 16:55] LABS: ALBUMIN 3.6 g/dl (3.4-5.0); ALK PHOS 131 U/L (45-117); ANION GAP 5 MMOL/L (8-16); BILIRUBIN,TOTAL 1.5 mg/dL (0.2-1); BLOOD UREA NITROGEN 16 mg/dL (7-18); CALCIUM 8.8 mg/dL (8.5-10.1); CHLORIDE 105 mmol/L (98-107); CO2 27 mmol/L (21-32); CREATININE 0.7 mg/dL (0.55-1.3); GLUCOSE,RANDOM 112 mg/dL (74-106); POTASSIUM 4.1 mmol/L (3.5-5.1); SGOT/AST 32 U/L (15-37); SGPT/ALT 25 U/L (13-61); SODIUM 138 mmol/L (136-145); TOT PROT 7.3 g/dl (6.4-8.2)
[2018-09-22] MEDS ORDERED: ACETAMINOPHEN 1000 MG/100 ML VIAL (NON FORMULARY) IVPB ONE (17:22)
[2018-09-22] MEDS ORDERED: SODIUM CHLORIDE 0.9% 1000 ML INFUS.BAG IV ONE (17:23)
[2018-09-22] MEDS ORDERED: ACETAMINOPHEN INJECTION 100 ML IVPB ONE (17:27)
[2018-09-22 21:25] LABS: EPI CELLS 1.2 /HPF (0-5/HPF); HYALINE CASTS 2 /lpf (0-8); URINE APPEARANCE CLEAR; URINE BACTERIA 1.7 /hpf (NEGATIVE); URINE BILIRUBIN NEGATIVE (NEGATIVE); URINE COLOR DK YELLOW; URINE GLUCOSE (UA) NEGATIVE (NEGATIVE); URINE KETONE TRACE (NEGATIVE); URINE LEUK ESTERASE 1+ (NEGATIVE); URINE NITRITE NEGATIVE (NEGATIVE); URINE PROTEIN NEGATIVE (NEGATIVE); URINE RBC 5 /hpf (0-4); URINE UROBILINOGEN 0.2 mg/dL (0.2-1.0); URINE WBC 8 /hpf (0-5)
[2018-09-22] MEDS ORDERED: PATIENT'S OWN MEDICATION (NON-FORMULARY) (Mesalamine [Apriso] 0.375 GM) PO SCH (22:00)
--- NOTE | 2018-09-22 22:00 | HP ---
Admitting History and Physical - Admission History of Present Illness: 09/22/18 16:[address] from [facility] fib on coumadin, previous CVA, htn, chf, UC, HLD, hypothyroidism and dementia (baseline AOX1) for an unwitnessed fall and complaints of lower back pain with inability to ambulate after the fall. ED spoke with nurse Vazquez at [facility], states pt was ambulating at baseline with his rolling walker prior to breakfast, later admitted to an unwitnessed fall and can no longer ambulate due to lower back pain. Pt states he was seated, bent over trying to pick something up off the floor, fell out of his chair, hit his head and complained of sudden onset midline back tenderness. Denies LOC, YUN, changes in vision/speech, weakness on 1 side of his body, N/V/F/C. 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 [employer]ER: Yes: CVA, Dementia Cardiovascular: Yes: AFIB, HTN Gastrointestinal: Yes: Ulcerative Colitis Psych: Yes: Depression Musculoskeletal: Yes: Chronic low back pain, Osteoarthritis Endocrine: Yes: Hypothyroidism, Other (Hyperlipidemia) Dermatology: Yes: Other (sun damaged skin with some weeping) - Smoking History Smoking history: Never smoked Have you smoked in the past 12 months: No - Alcohol/Substance Use Hx Alcohol Use: No - Social History Usual Living Arrangement: Yes: Assisted Living ADL: Support Services History of Recent Travel: No Home Medications - Allergies Allergies/Adverse Reactions: Allergies Allergy/AdvReac Type Severity Reaction Status Date / Time No Known Allergies Allergy Verified 09/22/18 15:03 - Home Medications Home Medications: Ambulatory Orders Calcium Carb/Mag Ox/Zinc Sulf [Ttvrfbu-Bhjvzgmbz-Bixk Tablet] 1 each PO DAILY Cholecalciferol (Vitamin D3) [Vitamin D3] 2,000 unit PO DAILY 07/14/16 Donepezil HCl [Aricept] 10 mg PO DAILY 07/14/16 Escitalopram Oxalate [Lexapro -] 20 mg PO DAILY 07/14/16 Furosemide [Lasix] 20 mg PO BID 07/14/16 Levothyroxine [Synthroid -] 150 mcg PO ACBK 07/14/16 Memantine HCl [Namenda -] 10 mg PO DAILY 07/14/16 Multivitamin [Poly-Vitamin] 1 each PO DAILY 07/14/16 Simvastatin 10 mg PO DAILY 07/14/16 Metoprolol Tartrate [Lopressor -] 12.5 mg PO BID tablet 05/13/17 Mesalamine [Apriso] 0.375 gm PO BID 09/22/18 Warfarin Sodium [Coumadin] 3 mg PO DAILY 09/22/18 Review of Systems Findings/Remarks: patient oriented X1 / easily confused poor historian per Nursing at [facility] * had been at usual state of health prior to accidental fall - Review of Systems Constitutional: reports: No Symptoms Eyes: reports: No Symptoms HENT: reports: No Symptoms Neck: reports: No Symptoms Cardiovascular: reports: No Symptoms Respiratory: reports: No Symptoms Gastrointestinal: reports: No Symptoms Genitourinary: reports: No Symptoms Breasts: reports: No Symptoms Reported Musculoskeletal: reports: No Symptoms Integumentary: reports: No Symptoms Neurological: reports: No Symptoms, Pre-Existing Deficit, Unsteady Gait, Other ( ambulates with asstance of walker prior to fall) Endocrine: reports: No Symptoms Hematology/Lymphatic: reports: Other (elevated INR on coumadin 3mg / day) Psychiatric: reports: Depression Pain Intensity: 7 (with any movement ) Physical Examination Vital Signs: Vital Signs Temperature 98.2 F 09/22/18 15:00 Pulse Rate 57 L 09/22/18 15:00 Respiratory Rate 18 09/22/18 15:00 Blood Pressure 163/84 09/22/18 15:00 O2 Sat by Pulse Oximetry (%) 95 09/22/18 15:00 Labs: CBC, BMP 09/22/18 16:15 09/22/18 16:15 Problem List - Problems (1) Fall from chair, initial encounter Code(s): W07.XXXA - FALL FROM CHAIR, INITIAL ENCOUNTER (2) Fall as cause of accidental injury at home as place of occurrence Code(s): W19.XXXA - UNSPECIFIED FALL, INITIAL ENCOUNTER; Y92.009 - UNSP PLACE IN [facility]IDENCE [facility] (3) Closed fracture of thoracic vertebral body Code(s): S22.009A - UNSP FRACTURE OF UNSP THORACIC VERTEBRA, INIT FOR CLOS FX (4) A-fib Code(s): I48.91 - UNSPECIFIED ATRIAL FIBRILLATION (5) Dementia Code(s): F03.90 - UNSPECIFIED DEMENTIA WITHOUT BEHAVIORAL DISTURBANCE (6) Fall Code(s): W19.XXXA - UNSPECIFIED FALL, INITIAL ENCOUNTER (7) Hypothyroidism Code(s): E03.9 - HYPOTHYROIDISM, UNSPECIFIED
[2018-09-22] MEDS ORDERED: ATORVASTATIN CA 20 MG TABLET (FP) ONE (23:07)
[2018-09-22] MEDS ORDERED: METOPROLOL TARTRATE 25 MG TABLET (FP) ONE (23:07)
[2018-09-22] MEDS: METOPROLOL TARTRATE 25 MG TABLET (FP) PO SCH (23:14)
[2018-09-22] MEDS: ATORVASTATIN CA 20 MG TABLET (FP) PO SCH (23:14)
[2018-09-23] MEDS: MORPHINE SULFATE 2 MG/ML VIAL IVPUSH PRN ×3 (06:03→21:36)
[2018-09-23] MEDS ORDERED: LEVOTHYROXINE NA 150 MCG TABLET PO SCH (07:00)
[2018-09-23 07:43] LABS: HEMOGLOBIN 14.1 GM/dL (11.7-16.9); MCH 30.1 pg (25.7-33.7); MCHC 34.5 g/dl (32.0-35.9); MEAN CELL VOLUME 87.4 fl (80-96); MEAN PLT VOLUME 7.8 fl (7.5-11.1); PLATELET COUNT 208 K/MM3 (134-434); RBC 4.69 M/mm3 (4.00-5.60); RDW 14.9 % (11.9-15.9)
[2018-09-23 07:45] LABS: INR 3.57 (0.83-1.09); PROTHROMBIN TIME (PATIENT) 42.7 SEC (9.7-13.0)
[2018-09-23 08:06] LABS: CALCIUM 8.8 mg/dL (8.5-10.1); CREATININE 0.7 mg/dL (0.55-1.3); MAGNESIUM 2.3 mg/dL (1.8-2.4); POTASSIUM 3.7 mmol/L (3.5-5.1)
[2018-09-23] MEDS ORDERED: PNEUMOC 13-VAL CONJ-DIP CRM/PF 0.5 ML DISP.SYRIN IM ONE (10:00)
[2018-09-23] MEDS: POLYETHYLENE GLYCOL 3350 119 GM BTL PO SCH (10:43)
[2018-09-23] MEDS: MEMANTINE HCL 10 MG TABLET (FP) PO SCH (10:44)
[2018-09-23] MEDS: DOCUSATE SODIUM 100 MG CAPSULE (FP) PO PRN (10:44)
[2018-09-23] MEDS: ESCITALOPRAM OXALATE 10 MG TABLET (FP) PO SCH (10:44)
[2018-09-23] MEDS: MULTIVITAMINS (DAILY MVI) TABLET (FP) PO SCH (10:44)
[2018-09-23] MEDS: DONEPEZIL HCL 10 MG TABLET (FP) PO SCH (10:47)
--- NOTE | 2018-09-23 10:47 | PN ---
Progress Note (short form) - Note Progress Note: 88 y/o male found lying in bed still wearing jeans from last night. Denies pain at present but does not move. Alert x oriented x 1. Vital Signs Period Temp Pulse Resp BP Sys/Macdonald Pulse Ox Last 24 Hr 97.6 F-98.7 F 57-88 18-20 131-163/69-93 93-96 CBC, BMP 09/23/18 06:50 09/23/18 06:50 HEENT- NL Neck- supple Lungs-unable to assess Heart- S1/S2 Abd-soft/nt/ umbilical hernia Ext- No LE edema Active Medications Atorvastatin Calcium (Lipitor -) 20 mg PO HS [facility] Last Admin: 09/22/18 23:14 Dose: 20 mg Docusate Sodium (Colace -) 200 mg PO BID PRN PRN Reason: CONSTIPATION Last Admin: 09/23/18 10:44 Dose: 200 mg Donepezil HCl (Aricept -) 10 mg PO DAILY [facility] Escitalopram Oxalate (Lexapro -) 20 mg PO DAILY [facility] Last Admin: 09/23/18 10:44 Dose: 20 mg Levothyroxine Sodium (Synthroid -) 125 mcg PO DAILY@0700 [facility] Memantine (Namenda -) 10 mg PO DAILY [facility] Last Admin: 09/23/18 10:44 Dose: 10 mg Metoprolol Tartrate (Lopressor -) 12.5 mg PO BID [facility] Last Admin: 09/22/18 23:14 Dose: 12.5 mg Morphine Sulfate (Morphine Sulfate) 2 mg IVPUSH Q4H PRN PRN Reason: PAIN LEVEL 4 - 6 Last Admin: 09/23/18 10:45 Dose: 2 mg Multivitamins/Minerals/Vitamin C (Tab-A-Vit -) 1 tab PO DAILY [facility] Last Admin: 09/23/18 10:44 Dose: 1 tab Non-Formulary Medication (Mesalamine [Apriso]) 0.375 gm PO BID [facility] Polyethylene Glycol (Miralax (For Daily Use) -) 17 gm PO DAILY [facility] Last Admin: 09/23/18 10:43 Dose: 119 grams #Unwitnessed Fall Head ct reviewed- chronic microvascular changes Cervical CT scan reviewed- no fx Lumbar CT scan- Acute T11 vertebral fx noted Chronic L3-L4 chronic vertebral compression fxs noted Neurosurg consult #Afib INR 3.57 #Hypothyroidism TSH 0.11 Levothyroxine decreased to 125 mcg daily #HTN Cont BB Monitor BP #Pain None at present Morphine prn Awaiting pain mgmt Fearful to move #Dementia/ Depression Behavior stable now Uncooperative at times Aricept/ Namenda/ Lexapro #HLD Statin Problem List - Problems (1) Fall from chair, initial encounter Code(s): W07.XXXA - FALL FROM CHAIR, INITIAL ENCOUNTER (2) Fall as cause of accidental injury at home as place of occurrence Code(s): W19.XXXA - UNSPECIFIED FALL, INITIAL ENCOUNTER; Y92.009 - UNSP PLACE IN [facility] NON[facility] (PRIVATE[facility] RESIDENCE PLACE (3) Closed fracture of thoracic vertebral body Code(s): S22.009A - UNSP FRACTURE OF UNSP THORACIC VERTEBRA, INIT FOR CLOS FX (4) A-fib Code(s): I48.91 - UNSPECIFIED ATRIAL FIBRILLATION (5) Dementia Code(s): F03.90 - UNSPECIFIED DEMENTIA WITHOUT BEHAVIORAL DISTURBANCE (6) Fall Code(s): W19.XXXA - UNSPECIFIED FALL, INITIAL ENCOUNTER (7) Hypothyroidism Code(s): E03.9 - HYPOTHYROIDISM, UNSPECIFIED
[2018-09-23] MEDS: METOPROLOL TARTRATE 25 MG TABLET (FP) PO SCH ×2 (11:30→21:57)
[2018-09-23] MEDS: ATORVASTATIN CA 20 MG TABLET (FP) PO SCH (21:58)
[2018-09-24] MEDS: MORPHINE SULFATE 2 MG/ML VIAL IVPUSH PRN (02:44)
[2018-09-24] MEDS ORDERED: HALOPERIDOL LACTATE 5 MG/ML IM ONE (03:15)
[2018-09-24] MEDS: LEVOTHYROXINE NA 125 MCG TABLET (FP) PO SCH (06:34)
[2018-09-24 07:43] LABS: BASO % 0.3 % (0-2.0); EOS % 0.1 % (0-4.5); HEMATOCRIT 44.7 % (35.4-49); HEMOGLOBIN 15.4 GM/dL (11.7-16.9); LYMPH % 3.9 % (8-40); MCH 30.1 pg (25.7-33.7); MCHC 34.4 g/dl (32.0-35.9); MEAN CELL VOLUME 87.5 fl (80-96); MEAN PLT VOLUME 8.1 fl (7.5-11.1); NEUT % 87.7 % (42.8-82.8); PLATELET COUNT 197 K/MM3 (134-434); RBC 5.11 M/mm3 (4.00-5.60); WHITE BLOOD COUNT 13.2 K/mm3 (4.0-10.0)
[2018-09-24 08:09] LABS: INR 3.76 (0.83-1.09)
[2018-09-24 08:17] LABS: CALCIUM 9.1 mg/dL (8.5-10.1); CREATININE 0.8 mg/dL (0.55-1.3); POTASSIUM 3.5 mmol/L (3.5-5.1)
--- NOTE | 2018-09-24 08:59 | PN ---
Progress Note (short form) - Note Progress Note: laying flat in bed does not know why he is here denies any pain but does not move from current position had episode of agitation last night - required Haldol Vital Signs Period Temp Pulse Resp BP Sys/Macdonald Pulse Ox Last 24 Hr 97.9 F-98.7 F 76-111 16-20 143-162/70-95 93-94 heart S1/S2 lungs clear bilat abd soft non tender ext + trace edema CBC, BMP 09/24/18 06:33 09/24/18 06:33 Active Medications Atorvastatin Calcium (Lipitor -) 20 mg PO HS [facility] Last Admin: 09/23/18 21:58 Dose: 20 mg Docusate Sodium (Colace -) 200 mg PO BID PRN PRN Reason: CONSTIPATION Last Admin: 09/23/18 10:44 Dose: 200 mg Donepezil HCl (Aricept -) 10 mg PO DAILY [facility] Last Admin: 09/23/18 10:47 Dose: 10 mg Escitalopram Oxalate (Lexapro -) 20 mg PO DAILY [facility] Last Admin: 09/23/18 10:44 Dose: 20 mg Levothyroxine Sodium (Synthroid -) 125 mcg PO DAILY@0700 [facility] Last Admin: 09/24/18 06:34 Dose: 125 mcg Memantine (Namenda -) 10 mg PO DAILY [facility] Last Admin: 09/23/18 10:44 Dose: 10 mg Metoprolol Tartrate (Lopressor -) 12.5 mg PO BID [facility] Last Admin: 09/23/18 21:57 Dose: 12.5 mg Morphine Sulfate (Morphine Sulfate) 2 mg IVPUSH Q4H PRN PRN Reason: PAIN LEVEL 4 - 6 Last Admin: 09/24/18 02:44 Dose: 2 mg Multivitamins/Minerals/Vitamin C (Tab-A-Vit -) 1 tab PO DAILY [facility] Last Admin: 09/23/18 10:44 Dose: 1 tab Non-Formulary Medication (Mesalamine [Apriso]) 0.375 gm PO BID [facility] Polyethylene Glycol (Miralax (For Daily Use) -) 17 gm PO DAILY [facility] Last Admin: 09/23/18 10:43 Dose: 119 grams # Unwitnessed Fall Head ct reviewed- chronic microvascular changes Cervical CT scan reviewed- no fx Lumbar CT scan- Acute T11 vertebral fx noted Chronic L3-L4 chronic vertebral compression fxs noted Neurosurg consult / pain mamagement # Afib rate controlled on coumadin as out patient - currently on hold - will follow INR INR 3.57 # Hypothyroidism TSH 0.11 Levothyroxine decreased to 125 mcg daily # HTN Cont BB Monitor BP # Pain None at present Morphine prn Awaiting pain mgmt Fearful to move # Dementia/ Depression Behavior stable now Uncooperative at times - given Haldol for acute episode Aricept/ Namenda/ Lexapro #HLD Statin Problem List - Problems (1) Fall from chair, initial encounter Code(s): W07.XXXA - FALL FROM CHAIR, INITIAL ENCOUNTER (2) Fall as cause of accidental injury at home as place of occurrence Code(s): W19.XXXA - UNSPECIFIED FALL, INITIAL ENCOUNTER; Y92.009 - UNSP PLACE IN [place] [facility] (PRIVATE) RESIDENCE PLACE (3) Closed fracture of thoracic vertebral body Code(s): S22.009A - UNSP FRACTURE OF UNSP THORACIC VERTEBRA, INIT FOR CLOS FX (4) A-fib Code(s): I48.91 - UNSPECIFIED ATRIAL FIBRILLATION (5) Dementia Code(s): F03.90 - UNSPECIFIED DEMENTIA WITHOUT BEHAVIORAL DISTURBANCE (6) Fall Code(s): W19.XXXA - UNSPECIFIED FALL, INITIAL ENCOUNTER (7) Hypothyroidism Code(s): E03.9 - HYPOTHYROIDISM, UNSPECIFIED
[2018-09-24] MEDS: MULTIVITAMINS (DAILY MVI) TABLET (FP) PO SCH (09:13)
[2018-09-24] MEDS: ESCITALOPRAM OXALATE 10 MG TABLET (FP) PO SCH (09:13)
[2018-09-24] MEDS: MEMANTINE HCL 10 MG TABLET (FP) PO SCH (09:13)
[2018-09-24] MEDS: METOPROLOL TARTRATE 25 MG TABLET (FP) PO SCH ×2 (09:13→21:49)
[2018-09-24] MEDS: DONEPEZIL HCL 10 MG TABLET (FP) PO SCH (09:13)
[2018-09-24] MEDS: POLYETHYLENE GLYCOL 3350 119 GM BTL PO SCH (09:14)
--- NOTE | 2018-09-24 09:29 | CONSULT ---
Consult - text type - Consultation Consultation Note: NEUROSURGERY CONSULTATION Mumtaz Serrano is an 88 year old male who lives at [facility] living [facility] and has a history of Afib which is managed with Coumadin therapy. Past medical history also notable for CVA, HTN, CHF, UC, and Dementia. Patient was in his relative state of good health until August when he was found on the ground after an apparent fall (unwitnessed). He had been utilizing a rolling walker. Subsequent to the fall, he was in severe pain and unable to move. He was brought in by ambulance to [facility] ER where he was unable to stand or sit. Even turning in bed or any passive movement or repositioning was excruciating and elicited yelling and screwming as well as combative response. Significant coaxing from nursing and his daughter were required to chenge his clothes to a hospital gown and get him into a bed. CT Cervical demonstrates moderate spondylosis and is notable for marked positive sagittal balance which does not appear to be acute within the Cervical spine (upped Thoracic spine is angled forwards sharply). Lumbar CT demonstrates osteopenia and multiple compression fracture in the mid-Lumbar spine which are unchanged from prior imaging. There is a new, horizontal fracture through T11 which is acute and this extends through both pedicles. Although there is no dedicated imaging of this fracture, it appears to represent a Chance fracture (three column) and would explain his significant pain associated with any movements. The patient cannot fully participate with examination of his lower extremity function due to pain, however, he does not appear to have clear or obvious new deficits. Patient is largely pain free when at rest and not moving. Patient indicates that his Cervical positive sagittal balance is not new and he uses two pillows to accomodate his sharp angulation. The likely fracture(s) contributing to this angulation are not visualized on current exams. Patient would benefit from CT and MRI of the Thoracic spine to assess any hematoma and the focus of the kyphosis (not apparently in the rostral and caudal regions of the Thoracic spine visualized on current imaging. Patient at risk for disc herniation or hematoma associated with his coumadin. Recommend: - TLSO brace for comfort - Pain control - GI/DVT prophylaxis - CT & MRI Thoracic (both without contrast)
[2018-09-24] MEDS: oxyCODONE HCL 5 MG TABLET PO PRN (21:47)
[2018-09-24] MEDS: ATORVASTATIN CA 20 MG TABLET (FP) PO SCH (21:47)
[2018-09-24] MEDS: GABAPENTIN 100 MG CAPSULE (FP) PO SCH (21:49)
[2018-09-25] MEDS: oxyCODONE HCL 5 MG TABLET PO PRN ×5 (03:25→23:30)
[2018-09-25] MEDS: LEVOTHYROXINE NA 125 MCG TABLET (FP) PO SCH (06:26)
[2018-09-25] MEDS: MULTIVITAMINS (DAILY MVI) TABLET (FP) PO SCH (08:59)
[2018-09-25] MEDS: ESCITALOPRAM OXALATE 10 MG TABLET (FP) PO SCH (08:59)
[2018-09-25] MEDS: MEMANTINE HCL 10 MG TABLET (FP) PO SCH (08:59)
[2018-09-25] MEDS: METOPROLOL TARTRATE 25 MG TABLET (FP) PO SCH ×2 (08:59→21:39)
[2018-09-25] MEDS: GABAPENTIN 100 MG CAPSULE (FP) PO SCH ×2 (08:59→21:39)
[2018-09-25] MEDS: DONEPEZIL HCL 10 MG TABLET (FP) PO SCH (09:00)
[2018-09-25] MEDS: POLYETHYLENE GLYCOL 3350 119 GM BTL PO SCH (09:00)
[2018-09-25 09:39] LABS: BASO % 0.6 % (0-2.0); EOS % 0.1 % (0-4.5); HEMATOCRIT 42.9 % (35.4-49); HEMOGLOBIN 14.8 GM/dL (11.7-16.9); LYMPH % 5.8 % (8-40); MCH 29.9 pg (25.7-33.7); MCHC 34.4 g/dl (32.0-35.9); MEAN PLT VOLUME 8.2 fl (7.5-11.1); MONO % 9.5 % (3.8-10.2); PLATELET COUNT 198 K/MM3 (134-434); RBC 4.93 M/mm3 (4.00-5.60); RDW 14.8 % (11.9-15.9); WHITE BLOOD COUNT 12.7 K/mm3 (4.0-10.0)
[2018-09-25 09:52] LABS: INR 3.2 (0.83-1.09); PROTHROMBIN TIME (PATIENT) 38.2 SEC (9.7-13.0)
[2018-09-25 10:30] LABS: CALCIUM 8.6 mg/dL (8.5-10.1); CREATININE 0.7 mg/dL (0.55-1.3); POTASSIUM 3.5 mmol/L (3.5-5.1)
--- NOTE | 2018-09-25 13:58 | PN ---
Progress Note (short form) - Note Progress Note: laying flat in bed does not know why he is here denies any pain but does not move from current position Vital Signs Period Temp Pulse Resp BP Sys/Macdonald Pulse Ox Last 24 Hr 97.9 F-98.7 F 76-111 16-20 143-162/70-95 93-94 heart S1/S2 lungs clear bilat abd soft non tender ext no edema CBC, BMP 09/25/18 08:40 09/25/18 08:40 CBC, BMP 09/24/18 06:33 09/24/18 06:33 Active Medications Atorvastatin Calcium (Lipitor -) 20 mg PO HS [facility] Last Admin: 09/24/18 21:47 Dose: 20 mg Docusate Sodium (Colace -) 200 mg PO BID PRN PRN Reason: CONSTIPATION Last Admin: 09/23/18 10:44 Dose: 200 mg Donepezil HCl (Aricept -) 10 mg PO DAILY [facility] Last Admin: 09/25/18 09:00 Dose: 10 mg Escitalopram Oxalate (Lexapro -) 20 mg PO DAILY [facility] Last Admin: 09/25/18 08:59 Dose: 20 mg Gabapentin (Neurontin -) 100 mg PO BID [facility] Last Admin: 09/25/18 08:59 Dose: 100 mg Levothyroxine Sodium (Synthroid -) 125 mcg PO DAILY@0700 [facility] Last Admin: 09/25/18 06:26 Dose: 125 mcg Memantine (Namenda -) 10 mg PO DAILY [facility] Last Admin: 09/25/18 08:59 Dose: 10 mg Metoprolol Tartrate (Lopressor -) 12.5 mg PO BID [facility] Last Admin: 09/25/18 08:59 Dose: 12.5 mg Morphine Sulfate (Morphine Sulfate) 2 mg IVPUSH Q4H PRN PRN Reason: PAIN LEVEL 4 - 6 Last Admin: 09/24/18 02:44 Dose: 2 mg Multivitamins/Minerals/Vitamin C (Tab-A-Vit -) 1 tab PO DAILY [facility] Last Admin: 09/25/18 08:59 Dose: 1 tab Non-Formulary Medication (Mesalamine [Apriso]) 0.375 gm PO BID [facility] Oxycodone HCl (Roxicodone -) 5 mg PO Q4H PRN PRN Reason: PAIN SCALE 4-6 Last Admin: 09/25/18 08:58 Dose: 5 mg Polyethylene Glycol (Miralax (For Daily Use) -) 17 gm PO DAILY [facility] Last Admin: 09/25/18 09:00 Dose: 17 grams # Unwitnessed Fall Head ct reviewed- chronic microvascular changes Cervical CT scan reviewed- no fx Lumbar CT scan- Acute T11 vertebral fx noted Chronic L3-L4 chronic vertebral compression fxs noted Neurosurg consult appreciated \ CT of thorax ordered / pain mamagement # Afib rate controlled on coumadin as out patient - currently on hold - will follow INR INR remains therapeutic # Hypothyroidism TSH 0.11 Levothyroxine decreased to 125 mcg daily # HTN Cont BB Monitor BP # Pain None at present Morphine prn Awaiting pain mgmt Fearful to move # Dementia/ Depression Behavior stable now Uncooperative at times - given Haldol for acute episode Aricept/ Namenda/ Lexapro #HLD Statin Problem List - Problems (1) Fall from chair, initial encounter Code(s): W07.XXXA - FALL FROM CHAIR, INITIAL ENCOUNTER (2) Fall as cause of accidental injury at home as place of occurrence Code(s): W19.XXXA - UNSPECIFIED FALL, INITIAL ENCOUNTER; Y92.009 - UNSP PLACE IN [facility]PR[facility]IDENCE PLACE (3) Closed fracture of thoracic vertebral body Code(s): S22.009A - UNSP FRACTURE OF UNSP THORACIC VERTEBRA, INIT FOR CLOS FX (4) A-fib Code(s): I48.91 - UNSPECIFIED ATRIAL FIBRILLATION (5) Dementia Code(s): F03.90 - UNSPECIFIED DEMENTIA WITHOUT BEHAVIORAL DISTURBANCE (6) Fall Code(s): W19.XXXA - UNSPECIFIED FALL, INITIAL ENCOUNTER (7) Hypothyroidism Code(s): E03.9 - HYPOTHYROIDISM, UNSPECIFIED
--- NOTE | 2018-09-25 15:34 | EKG ---
Test Reason : Blood Pressure : / mmHG Vent. Rate : 073 BPM Atrial Rate : 084 BPM P-R Int : 000 ms QRS Dur : 100 ms QT Int : 434 ms P-R-T Axes : 000 -41 036 degrees QTc Int : 478 ms ATRIAL FIBRILLATION LEFT AXIS DEVIATION NONSPECIFIC ST ABNORMALITY ABNORMAL ECG WHEN COMPARED WITH ECG OF 02-JUL-2018 01:16, NO SIGNIFICANT CHANGE WAS FOUND Confirmed by HU SCHWAB MD ([id number]) on 09/25/2018 3:34:07 PM Referred By: Confirmed By:HU SCHWAB MD
[2018-09-25] MEDS: MORPHINE SULFATE 2 MG/ML VIAL IVPUSH PRN (21:39)
[2018-09-25] MEDS: ATORVASTATIN CA 20 MG TABLET (FP) PO SCH (21:39)
--- NOTE | 2018-09-25 23:35 | PN ---
Progress Note (short form) - Note Progress Note: Patient resting comfortably. Less pain while at rest and able to move slightly without the previous excruciating pain. Thoracic CT reviewed and lower Thoracic Chance fracture noted (T11 versus T12). Initial treatment with TLSO bracing is reasonable, however, if he fails (unable to bear weight and ambulate or angulation on standing films in brace), he may be a candidate for focal stabilization procedure.
[2018-09-26] MEDS: oxyCODONE HCL 5 MG TABLET PO PRN ×2 (03:34→08:20)
[2018-09-26] MEDS: LEVOTHYROXINE NA 125 MCG TABLET (FP) PO SCH (06:15)
[2018-09-26 06:52] LABS: BASO % 0.6 % (0-2.0); EOS % 0.3 % (0-4.5); HEMOGLOBIN 15.4 GM/dL (11.7-16.9); LYMPH % 6.8 % (8-40); MCHC 34.2 g/dl (32.0-35.9); MEAN CELL VOLUME 87.6 fl (80-96); MONO % 9.4 % (3.8-10.2); NEUT % 82.9 % (42.8-82.8); PLATELET COUNT 219 K/MM3 (134-434); RBC 5.14 M/mm3 (4.00-5.60); RDW 14.7 % (11.9-15.9); WHITE BLOOD COUNT 10.9 K/mm3 (4.0-10.0)
[2018-09-26 07:10] LABS: CALCIUM 9.1 mg/dL (8.5-10.1); CREATININE 0.6 mg/dL (0.55-1.3); POTASSIUM 4.1 mmol/L (3.5-5.1)
[2018-09-26 07:14] LABS: INR 2.13 (0.83-1.09); PROTHROMBIN TIME (PATIENT) 25.3 SEC (9.7-13.0)
--- NOTE | 2018-09-26 08:11 | PN ---
Progress Note (short form) - Note Progress Note: NS evaluation reviewed patient will be evaluated after trial of brace laying flat in bed does not know why he is here denies any pain but does not move from current position Vital Signs Period Temp Pulse Resp BP Sys/Macdonald Pulse Ox Last 24 Hr 97.7 F-99.1 F 79-88 18-20 141-168/72-93 95 neck supple heart S1/S2 lungs clear bilat abd soft non tender ext no edema CBC, BMP 09/26/18 06:15 CBC, [facility] 09/25/18 08:40 09/25/18 08:40 CBC, [facility] 09/24/18 06:33 09/24/18 06:33 Microbiology 09/22/18 21:00 Urine - Urine Clean Catch Urine Culture - Final NO GROWTH OBTAINED Active Medications Atorvastatin Calcium (Lipitor -) 20 mg PO HS [facility] Last Admin: 09/25/18 21:39 Dose: 20 mg Docusate Sodium (Colace -) 200 mg PO BID PRN PRN Reason: CONSTIPATION Last Admin: 09/23/18 10:44 Dose: 200 mg Donepezil HCl (Aricept -) 10 mg PO DAILY [facility] Last Admin: 09/25/18 09:00 Dose: 10 mg Escitalopram Oxalate (Lexapro -) 20 mg PO DAILY [facility] Last Admin: 09/25/18 08:59 Dose: 20 mg Gabapentin (Neurontin -) 100 mg PO BID [facility] Last Admin: 09/25/18 21:39 Dose: 100 mg Levothyroxine Sodium (Synthroid -) 125 mcg PO DAILY@0700 [facility] Last Admin: 09/26/18 06:15 Dose: 125 mcg Memantine (Namenda -) 10 mg PO DAILY [facility] Last Admin: 09/25/18 08:59 Dose: 10 mg Metoprolol Tartrate (Lopressor -) 12.5 mg PO BID [facility] Last Admin: 09/25/18 21:39 Dose: 12.5 mg Morphine Sulfate (Morphine Sulfate) 2 mg IVPUSH Q4H PRN PRN Reason: PAIN LEVEL 4 - 6 Last Admin: 09/24/18 02:44 Dose: 2 mg Multivitamins/Minerals/Vitamin C (Tab-A-Vit -) 1 tab PO DAILY [facility] Last Admin: 09/25/18 08:59 Dose: 1 tab Non-Formulary Medication (Mesalamine [Apriso]) 0.375 gm PO BID [facility] Oxycodone HCl (Roxicodone -) 5 mg PO Q4H PRN PRN Reason: PAIN SCALE 4-6 Last Admin: 09/26/18 03:34 Dose: 5 mg Polyethylene Glycol (Miralax (For Daily Use) -) 17 gm PO DAILY [facility] Last Admin: 09/25/18 09:00 Dose: 17 grams # Unwitnessed Fall Head ct reviewed- chronic microvascular changes Cervical CT scan reviewed- no fx Lumbar CT scan- Acute T11 vertebral fx noted Chronic L3-L4 chronic vertebral compression fxs noted Neurosurg consult and follow up appreciated \ CT of thorax reviewed pain mamagement # Afib rate controlled on coumadin as out patient - currently on hold - will follow INR INR remains therapeutic # Hypothyroidism TSH 0.11 Levothyroxine decreased to 125 mcg daily # HTN Cont BB Monitor BP # Pain None at present Morphine prn Awaiting pain mgmt Fearful to move # Dementia/ Depression Behavior stable now Uncooperative at times - given Haldol for acute episode Aricept/ Namenda/ Lexapro #HLD Statin Problem List - Problems (1) Fall from chair, initial encounter Code(s): W07.XXXA - FALL FROM CHAIR, INITIAL ENCOUNTER (2) Fall as cause of accidental injury at home as place of occurrence Code(s): W19.XXXA - UNSPECIFIED FALL, INITIAL ENCOUNTER; Y92.009 - UNSP PLACE IN [facility] RESIDENCE PL[facility] (3) Closed fracture of thoracic vertebral body Code(s): S22.009A - UNSP FRACTURE OF UNSP THORACIC VERTEBRA, INIT FOR CLOS FX (4) A-fib Code(s): I48.91 - UNSPECIFIED ATRIAL FIBRILLATION (5) Dementia Code(s): F03.90 - UNSPECIFIED DEMENTIA WITHOUT BEHAVIORAL DISTURBANCE (6) Fall Code(s): W19.XXXA - UNSPECIFIED FALL, INITIAL ENCOUNTER (7) Hypothyroidism Code(s): E03.9 - HYPOTHYROIDISM, UNSPECIFIED
--- NOTE | 2018-09-26 08:12 | PN ---
Progress Note (short form) - Note Progress Note: 88 yo male with admitted with back pain. Thoracic CT identified vertebral body fracture of T11 vs. T12 Initial treatment with TLSO bracing --> ordered brace this morning Once patient wearing brace he should have repeat xray while standing. Per Dr. Madison's note, if the brace fails to provide the support, bear weight or angulation on erect films) --> may need a focal stabilization procedure
[2018-09-26] MEDS: METOPROLOL TARTRATE 25 MG TABLET (FP) PO SCH ×2 (09:45→21:33)
[2018-09-26] MEDS: ESCITALOPRAM OXALATE 10 MG TABLET (FP) PO SCH (09:45)
[2018-09-26] MEDS: MEMANTINE HCL 10 MG TABLET (FP) PO SCH (09:45)
[2018-09-26] MEDS: MULTIVITAMINS (DAILY MVI) TABLET (FP) PO SCH (09:45)
[2018-09-26] MEDS: DONEPEZIL HCL 10 MG TABLET (FP) PO SCH (09:49)
[2018-09-26] MEDS: GABAPENTIN 100 MG CAPSULE (FP) PO SCH ×2 (09:49→21:32)
[2018-09-26] MEDS: DOCUSATE SODIUM 100 MG CAPSULE (FP) PO PRN (09:50)
[2018-09-26] MEDS: POLYETHYLENE GLYCOL 3350 119 GM BTL PO SCH (10:22)
--- NOTE | 2018-09-26 14:03 | PN ---
Progress Note (short form) - Note Progress Note: Patient sleeping in no acute distress. Discussed current condition and course of care with daughter Carey in detail. I explained that the T11/12 fracture is a Chance fracture which may be managed either with a brace or posterior fixation. I described both approaches in detail with the advantages and disadvantages. We are in agreement with an initial intent to treat with a brace and TLSO brace has been ordered. Patient will undergo medication optimization with Dr. Norman. If he fails to achieve relief, we will again review the risks, benefits and alternatives to posterior fusion. All questions were answered and informed consent was obtained.
--- NOTE | 2018-09-26 19:12 | CONSULT ---
Consult Consult Specialty:: Pain management - History of Present Illness Chief Complaint: Back pain s/p Comression Fx History of Present Illness: 88 yr old male with multiple medical comorbidity c/o Back pain. Had oxycodon 5 mg PO and slept for two hours and got confused. stopped Oxycodone. - History Source History Provided By: Patient - Past Medical History GUARD CHIEF: Yes: CVA, Dementia Cardio/Vascular: Yes: AFIB, HTN Gastrointestinal: Yes: Ulcerative Colitis Psych: Yes: Depression Musculoskeletal: Yes: Chronic low back pain, Osteoarthritis Endocrine: Yes: Hypothyroidism, Other (Hyperlipidemia) Dermatology: Yes: Other (sun damaged skin with some weeping) - Alcohol/Substance Use Hx Alcohol Use: No - Smoking History Smoking history: Never smoked Have you smoked in the past 12 months: No - Social History ADL: Support Services History of Recent Travel: No Home Medications - Allergies Allergies/Adverse Reactions: Allergies Allergy/AdvReac Type Severity Reaction Status Date / Time No Known Allergies Allergy Verified 09/22/18 15:03 - Home Medications Home Medications: Ambulatory Orders Calcium Carb/Mag Ox/Zinc Sulf [Ksatiin-Ymemoydft-Hael Tablet] 1 each PO DAILY Cholecalciferol (Vitamin D3) [Vitamin D3] 2,000 unit PO DAILY 07/14/16 Donepezil HCl [Aricept] 10 mg PO DAILY 07/14/16 Escitalopram Oxalate [Lexapro -] 20 mg PO DAILY 07/14/16 Furosemide [Lasix] 20 mg PO BID 07/14/16 Levothyroxine [Synthroid -] 150 mcg PO ACBK 07/14/16 Memantine HCl [Namenda -] 10 mg PO DAILY 07/14/16 Multivitamin [Poly-Vitamin] 1 each PO DAILY 07/14/16 Simvastatin 10 mg PO DAILY 07/14/16 Metoprolol Tartrate [Lopressor -] 12.5 mg PO BID tablet 05/13/17 Mesalamine [Apriso] 0.375 gm PO BID 09/22/18 Warfarin Sodium [Coumadin] 3 mg PO DAILY 09/22/18 Review of Systems - Review of Systems Constitutional: reports: No Symptoms Eyes: reports: No Symptoms HENT: reports: No Symptoms, Hearing Loss (hearing impairment) Neck: reports: No Symptoms Musculoskeletal: reports: Back Pain Neurological: reports: No Symptoms Pain Intensity: 6 Physical Exam Vital Signs: Vital Signs Temperature 98 F 06/03/19 10:00 Pulse Rate 95 H 09/26/18 10:00 Respiratory Rate 19 09/26/18 10:00 Blood Pressure 165/94 09/26/18 10:00 O2 Sat by Pulse Oximetry (%) 91 L 09/26/18 09:00 Constitutional: Yes: Well Nourished Eyes: Yes: WNL HENT: Yes: WNL Neck: Yes: WNL Musculoskeletal: Yes: Back Pain, Muscle Pain, Other (tenderness +) Extremities: Yes: WNL Edema: No Neurological: Yes: Alert ...Motor Strength: WNL Labs: CBC, BMP 09/26/18 06:15 09/26/18 06:15 Home Medication List Medication Instructions Recorded Confirmed Type Calcium Carb/Mag Ox/Zinc Sulf 1 each PO DAILY 07/14/16 09/22/18 History [Eywxoqt-Bjghtdomx-Derf Tablet] Cholecalciferol (Vitamin D3) 2,000 unit PO DAILY 07/14/16 09/22/18 History [Vitamin D3] Donepezil HCl [Aricept] 10 mg PO DAILY 07/14/16 09/22/18 History Escitalopram Oxalate [Lexapro -] 20 mg PO DAILY 07/14/16 09/22/18 History Furosemide [Lasix] 20 mg PO BID 07/14/16 09/22/18 History Levothyroxine [Synthroid -] 150 mcg PO ACBK 07/14/16 09/22/18 History Memantine HCl [Namenda -] 10 mg PO DAILY 07/14/16 09/22/18 History Multivitamin [Poly-Vitamin] 1 each PO DAILY 07/14/16 09/22/18 History Simvastatin 10 mg PO DAILY 07/14/16 09/22/18 History Mesalamine [Apriso] 0.375 gm PO BID 09/22/18 09/22/18 History Warfarin Sodium [Coumadin] 3 mg PO DAILY 09/22/18 09/22/18 History Active Medications Generic Name Dose Route Start Last Admin Trade Name Freq PRN Reason Stop Dose Admin Atorvastatin Calcium 20 mg 09/22/18 22:00 09/25/18 21:39 Lipitor - PO 20 mg HS [facility] Administration Docusate Sodium 200 mg 09/22/18 21:36 09/26/18 09:50 Colace - PO 200 mg BID PRN Administration CONSTIPATION Donepezil HCl 10 mg 09/23/18 10:00 09/26/18 09:49 Aricept - PO 10 mg DAILY [facility] Administration Escitalopram Oxalate 20 mg 09/23/18 10:00 09/26/18 09:45 Lexapro - PO 20 mg DAILY [facility] Administration Gabapentin 100 mg 09/24/18 22:00 09/26/18 09:49 Neurontin - PO 100 mg BID [facility] Administration Levothyroxine Sodium 125 mcg 09/24/18 07:00 09/26/18 06:15 Synthroid - PO 125 mcg DAILY@0700 [facility] Administration Memantine 10 mg 09/23/18 10:00 09/26/18 09:45 Namenda - PO 10 mg DAILY [facility] Administration Metoprolol Tartrate 12.5 mg 09/22/18 22:00 09/26/18 09:45 Lopressor - PO 12.5 mg BID [facility] Administration Morphine Sulfate 2 mg 09/22/18 21:45 09/24/18 02:44 Morphine Sulfate IVPUSH 2 mg Q4H PRN Administration PAIN LEVEL 4 - 6 Multivitamins/Minerals/Vitamin C 1 tab 09/23/18 10:00 09/26/18 09:45 Tab-A-Vit - PO 1 tab DAILY [facility] Administration Non-Formulary Medication 0.375 gm 09/22/18 22:00 Mesalamine [Apriso] PO BID [facility] Oxycodone HCl 5 mg 09/24/18 13:44 09/26/18 08:20 Roxicodone - PO 5 mg Q4H PRN Administration PAIN SCALE 4-6 Polyethylene Glycol 17 gm 09/23/18 10:00 09/25/18 09:00 Miralax (For Daily Use) - PO 17 grams DAILY [facility] Administration Imaging - Results Cat Scan: Report Reviewed Assessment/Plan Midback pain s/p T12 compression fracture. Discussed in detail and answered his questions. Chart reviewed Discussed with RN D/C Oxycodone Lidocaine Patch 1-2 patches 12 hr on and 12 hr off Tylenol TLSO Brace Physical therapy evaluation DVT prophylaxis F/U with Dr. Madison. Thank you very much for your kind referral Dr. Norman ' [phone].
[2018-09-26] MEDS: ATORVASTATIN CA 20 MG TABLET (FP) PO SCH (21:32)
[2018-09-26] MEDS: LIDOCAINE 5% TOPICAL PATCH TP SCH (21:33)
[2018-09-27] MEDS: traMADol HCL 50 MG TABLET PO PRN ×3 (00:20→21:02)
[2018-09-27] MEDS: ACETAMINOPHEN 500 MG TABLET (FP) PO PRN (05:18)
[2018-09-27] MEDS: LEVOTHYROXINE NA 125 MCG TABLET (FP) PO SCH (06:06)
[2018-09-27 08:25] LABS: BASO % 0.4 % (0-2.0); EOS % 0.1 % (0-4.5); HEMATOCRIT 43.7 % (35.4-49); LYMPH % 4.8 % (8-40); MCH 29.8 pg (25.7-33.7); MCHC 34.3 g/dl (32.0-35.9); MEAN CELL VOLUME 87.1 fl (80-96); MEAN PLT VOLUME 7.7 fl (7.5-11.1); MONO % 8.7 % (3.8-10.2); PLATELET COUNT 232 K/MM3 (134-434); RBC 5.02 M/mm3 (4.00-5.60); WHITE BLOOD COUNT 11.6 K/mm3 (4.0-10.0)
--- NOTE | 2018-09-27 08:33 | PN ---
Progress Note (short form) - Note Progress Note: POC discussed with HCP Carey also discussed with NS and pain management plans for trial brace prior to intervention Brace pending able to sit up in bed for meals Vital Signs Period Temp Pulse Resp BP Sys/Macdonald Pulse Ox Last 24 Hr 98 F-98.8 F 80-95 18-20 150-165/72-98 94 neck supple heart S1/S2 lungs clear bilat abd soft non tender ext no edema CBC, BMP 09/27/18 08:00 09/27/18 08:00 CBC, BMP 09/24/18 06:33 09/24/18 06:33 Microbiology 09/22/18 21:00 Urine - Urine Clean Catch Urine Culture - Final NO GROWTH OBTAINED Active Medications Acetaminophen (Tylenol -) 500 mg PO Q6H PRN PRN Reason: PAIN SCALE 4-6 Last Admin: 09/27/18 05:18 Dose: 500 mg Atorvastatin Calcium (Lipitor -) 20 mg PO HS [facility] Last Admin: 09/26/18 21:32 Dose: 20 mg Docusate Sodium (Colace -) 200 mg PO BID PRN PRN Reason: CONSTIPATION Last Admin: 09/26/18 09:50 Dose: 200 mg Donepezil HCl (Aricept -) 10 mg PO DAILY [facility] Last Admin: 09/27/18 09:26 Dose: 10 mg Escitalopram Oxalate (Lexapro -) 20 mg PO DAILY [facility] Last Admin: 09/27/18 09:26 Dose: 20 mg Gabapentin (Neurontin -) 100 mg PO BID [facility] Last Admin: 09/27/18 09:25 Dose: 100 mg Levothyroxine Sodium (Synthroid -) 125 mcg PO DAILY@0700 [facility] Last Admin: 09/27/18 06:06 Dose: 125 mcg Lidocaine (Lidoderm Patch -) 1 patch TP DAILY@2100 [facility] Last Admin: 09/26/18 21:33 Dose: 1 patch Memantine (Namenda -) 10 mg PO DAILY [facility] Last Admin: 09/27/18 09:25 Dose: 10 mg Metoprolol Tartrate (Lopressor -) 12.5 mg PO BID [facility] Last Admin: 09/27/18 09:25 Dose: 12.5 mg Miscellaneous (Lidoderm Patch Removal) 1 each MC DAILY@0900 [facility] Morphine Sulfate (Morphine Sulfate) 2 mg IVPUSH Q4H PRN PRN Reason: PAIN LEVEL 4 - 6 Last Admin: 09/24/18 02:44 Dose: 2 mg Multivitamins/Minerals/Vitamin C (Tab-A-Vit -) 1 tab PO DAILY [facility] Last Admin: 09/27/18 09:25 Dose: 1 tab Non-Formulary Medication (Mesalamine [Apriso]) 0.375 gm PO BID [facility] Polyethylene Glycol (Miralax (For Daily Use) -) 17 gm PO DAILY [facility] Last Admin: 09/27/18 09:38 Dose: 17 grams Tramadol HCl (Ultram -) 50 mg PO Q8H PRN PRN Reason: PAIN LEVEL 6-10 Last Admin: 09/27/18 09:26 Dose: 50 mg assmt /plan # Unwitnessed Fall Head ct reviewed- chronic microvascular changes Cervical CT scan reviewed- no fx Lumbar CT scan- Acute T11 vertebral fx noted Chronic L3-L4 chronic vertebral compression fxs noted Thoracic CT scan -T12 vertebral body FX Neurosurg consult and follow up appreciated pain management appreciated # Afib rate controlled on coumadin as out patient - currently on hold - will follow INR INR remains therapeutic # Hypothyroidism TSH 0.11 Levothyroxine decreased to 125 mcg daily # HTN Cont BB Monitor BP # Pain None at present Morphine prn Awaiting pain mgmt Fearful to move # Dementia/ Depression Behavior stable now Uncooperative at times - given Haldol for acute episode Aricept/ Namenda/ Lexapro #HLD Statin Problem List - Problems (1) Fall from chair, initial encounter Code(s): W07.XXXA - FALL FROM CHAIR, INITIAL ENCOUNTER (2) Fall as cause of accidental injury at home as place of occurrence Code(s): W19.XXXA - UNSPECIFIED FALL, INITIAL ENCOUNTER; Y92.009 - UNSP PLACE IN [facility] (PRIVATE[facility] RESIDENCE PLACE (3) Closed fracture of thoracic vertebral body Code(s): S22.009A - UNSP FRACTURE OF UNSP THORACIC VERTEBRA, INIT FOR CLOS FX (4) A-fib Code(s): I48.91 - UNSPECIFIED ATRIAL FIBRILLATION (5) Dementia Code(s): F03.90 - UNSPECIFIED DEMENTIA WITHOUT BEHAVIORAL DISTURBANCE (6) Fall Code(s): W19.XXXA - UNSPECIFIED FALL, INITIAL ENCOUNTER (7) Hypothyroidism Code(s): E03.9 - HYPOTHYROIDISM, UNSPECIFIED
[2018-09-27 08:40] LABS: CALCIUM 8.6 mg/dL (8.5-10.1); CREATININE 0.7 mg/dL (0.55-1.3); INR 1.72 (0.83-1.09); POTASSIUM 3.4 mmol/L (3.5-5.1); PROTHROMBIN TIME (PATIENT) 20.4 SEC (9.7-13.0)
[2018-09-27] MEDS: MEMANTINE HCL 10 MG TABLET (FP) PO SCH (09:25)
[2018-09-27] MEDS: GABAPENTIN 100 MG CAPSULE (FP) PO SCH ×2 (09:25→21:04)
[2018-09-27] MEDS: MULTIVITAMINS (DAILY MVI) TABLET (FP) PO SCH (09:25)
[2018-09-27] MEDS: METOPROLOL TARTRATE 25 MG TABLET (FP) PO SCH ×2 (09:25→21:02)
[2018-09-27] MEDS: ESCITALOPRAM OXALATE 10 MG TABLET (FP) PO SCH (09:26)
[2018-09-27] MEDS: DONEPEZIL HCL 10 MG TABLET (FP) PO SCH (09:26)
[2018-09-27] MEDS: POLYETHYLENE GLYCOL 3350 119 GM BTL PO SCH (09:38)
[2018-09-27] MEDS ORDERED: POTASSIUM CHLORIDE TABS 20 MEQ TABLET.ER (FP) PO ONE ×2 (09:52→18:15)
[2018-09-27] MEDS: RIVAROXABAN 20 MG TABLET PO SCH (17:48)
[2018-09-27] MEDS: LIDOCAINE PATCH REMOVAL MC SCH (17:48)
[2018-09-27] MEDS: ATORVASTATIN CA 20 MG TABLET (FP) PO SCH (21:02)
[2018-09-27] MEDS: LIDOCAINE 5% TOPICAL PATCH TP SCH (21:25)
[2018-09-28] MEDS: LEVOTHYROXINE NA 125 MCG TABLET (FP) PO SCH (06:39)
[2018-09-28] MEDS: traMADol HCL 50 MG TABLET PO PRN ×3 (08:18→23:22)
[2018-09-28 08:32] LABS: BASO % 0.7 % (0-2.0); EOS % 0.3 % (0-4.5); HEMATOCRIT 45.7 % (35.4-49); LYMPH % 5.6 % (8-40); MCH 29.4 pg (25.7-33.7); MCHC 32.7 g/dl (32.0-35.9); MEAN CELL VOLUME 89.7 fl (80-96); MEAN PLT VOLUME 8.4 fl (7.5-11.1); MONO % 7.9 % (3.8-10.2); NEUT % 85.5 % (42.8-82.8); PLATELET COUNT 232 K/MM3 (134-434); RDW 15.2 % (11.9-15.9); WHITE BLOOD COUNT 12.4 K/mm3 (4.0-10.0)
[2018-09-28 08:42] LABS: INR 2.46 (0.83-1.09); PROTHROMBIN TIME (PATIENT) 29.3 SEC (9.7-13.0)
[2018-09-28 08:58] LABS: CALCIUM 8.8 mg/dL (8.5-10.1); CREATININE 0.7 mg/dL (0.55-1.3); POTASSIUM 4.9 mmol/L (3.5-5.1)
[2018-09-28] MEDS ORDERED: PT OWN MED DRAWER 7, Y5N ONE ×2 (09:51→10:41)
[2018-09-28] MEDS: GABAPENTIN 100 MG CAPSULE (FP) PO SCH ×2 (09:54→21:11)
[2018-09-28] MEDS: MULTIVITAMINS (DAILY MVI) TABLET (FP) PO SCH (09:54)
[2018-09-28] MEDS: ESCITALOPRAM OXALATE 10 MG TABLET (FP) PO SCH (09:54)
[2018-09-28] MEDS: METOPROLOL TARTRATE 25 MG TABLET (FP) PO SCH ×2 (09:54→21:11)
[2018-09-28] MEDS: DONEPEZIL HCL 10 MG TABLET (FP) PO SCH (09:55)
[2018-09-28] MEDS: MEMANTINE HCL 10 MG TABLET (FP) PO SCH (09:55)
[2018-09-28] MEDS: POLYETHYLENE GLYCOL 3350 119 GM BTL PO SCH (09:56)
[2018-09-28] MEDS: LIDOCAINE PATCH REMOVAL MC SCH (15:15)
--- NOTE | 2018-09-28 15:46 | PN ---
Progress Note (short form) - Note Progress Note: Patient in bed without complaint. Family meeting with daughters for 60 minutes. Discussed plan of care and conservative versus operative options. All agree with 1-2 weeks of concerted efforts at management with bracing, PT and pain medication with re-evaluation of progress at that time.
[2018-09-28] MEDS: RIVAROXABAN 20 MG TABLET PO SCH (17:43)
[2018-09-28] MEDS: ACETAMINOPHEN 500 MG TABLET (FP) PO PRN (17:52)
[2018-09-28] MEDS: ATORVASTATIN CA 20 MG TABLET (FP) PO SCH (21:11)
[2018-09-28] MEDS: LIDOCAINE 5% TOPICAL PATCH TP SCH (21:11)
[2018-09-29] MEDS ORDERED: PT OWN MED DRAWER 7, Y5N ONE ×2 (05:38→16:11)
[2018-09-29] MEDS: LEVOTHYROXINE NA 125 MCG TABLET (FP) PO SCH (06:06)
[2018-09-29] MEDS: traMADol HCL 50 MG TABLET PO PRN (08:26)
[2018-09-29] MEDS: LIDOCAINE PATCH REMOVAL MC SCH (08:28)
[2018-09-29] MEDS: ESCITALOPRAM OXALATE 10 MG TABLET (FP) PO SCH (09:57)
[2018-09-29] MEDS: POLYETHYLENE GLYCOL 3350 119 GM BTL PO SCH (09:57)
[2018-09-29] MEDS: GABAPENTIN 100 MG CAPSULE (FP) PO SCH ×2 (09:58→22:16)
[2018-09-29] MEDS: MEMANTINE HCL 10 MG TABLET (FP) PO SCH (09:58)
[2018-09-29] MEDS: DOCUSATE SODIUM 100 MG CAPSULE (FP) PO PRN (09:58)
[2018-09-29] MEDS: MULTIVITAMINS (DAILY MVI) TABLET (FP) PO SCH (09:58)
[2018-09-29] MEDS: DONEPEZIL HCL 10 MG TABLET (FP) PO SCH (09:58)
[2018-09-29] MEDS: METOPROLOL TARTRATE 25 MG TABLET (FP) PO SCH ×2 (09:58→22:16)
--- NOTE | 2018-09-29 11:18 | PN ---
Progress Note (short form) - Note Progress Note: 88 y/o male found lying in bed, yelling for a pillow. States no pain at present. Vital Signs Period Temp Pulse Resp BP Sys/Macdonald Pulse Ox Last 24 Hr 98.3 F-98.8 F 70-90 18-20 129-142/76-84 95 CBC, BMP 09/28/18 07:45 09/28/18 07:45 HEENT- Normocephalic Neck- supple Lungs- CTAB Heart- S1/S2 Abd- soft, nt (pushed hand away and stated "that's enough" Ext- No LE edema Active Medications Acetaminophen (Tylenol -) 500 mg PO Q6H PRN PRN Reason: PAIN SCALE 4-6 Last Admin: 09/28/18 17:52 Dose: 500 mg Atorvastatin Calcium (Lipitor -) 20 mg PO HS [facility] Last Admin: 09/28/18 21:11 Dose: 20 mg Docusate Sodium (Colace -) 200 mg PO BID PRN PRN Reason: CONSTIPATION Last Admin: 09/29/18 09:58 Dose: 200 mg Donepezil HCl (Aricept -) 10 mg PO DAILY [facility] Last Admin: 09/29/18 09:58 Dose: 10 mg Escitalopram Oxalate (Lexapro -) 20 mg PO DAILY [facility] Last Admin: 09/29/18 09:57 Dose: 20 mg Gabapentin (Neurontin -) 100 mg PO BID [facility] Last Admin: 09/29/18 09:58 Dose: 100 mg Levothyroxine Sodium (Synthroid -) 125 mcg PO DAILY@0700 [facility] Last Admin: 09/29/18 06:06 Dose: 125 mcg Lidocaine (Lidoderm Patch -) 1 patch TP DAILY@2100 [facility] Last Admin: 09/28/18 21:11 Dose: 1 patch Memantine (Namenda -) 10 mg PO DAILY [facility] Last Admin: 09/29/18 09:58 Dose: 10 mg Metoprolol Tartrate (Lopressor -) 12.5 mg PO BID [facility] Last Admin: 09/29/18 09:58 Dose: 12.5 mg Miscellaneous (Lidoderm Patch Removal) 1 each MC DAILY@0900 [facility] Last Admin: 09/29/18 08:28 Dose: 1 each Morphine Sulfate (Morphine Sulfate) 2 mg IVPUSH Q4H PRN PRN Reason: PAIN LEVEL 4 - 6 Last Admin: 09/24/18 02:44 Dose: 2 mg Multivitamins/Minerals/Vitamin C (Tab-A-Vit -) 1 tab PO DAILY [facility] Last Admin: 09/29/18 09:58 Dose: 1 tab Non-Formulary Medication (Mesalamine [Apriso]) 0.375 gm PO BID [facility] Polyethylene Glycol (Miralax (For Daily Use) -) 17 gm PO DAILY [facility] Last Admin: 09/29/18 09:57 Dose: 17 grams Rivaroxaban (Xarelto) 20 mg PO DAILY@1800 [facility] Last Admin: 09/28/18 17:43 Dose: 20 mg Tramadol HCl (Ultram -) 50 mg PO Q8H PRN PRN Reason: PAIN LEVEL 6-10 Last Admin: 09/29/18 08:26 Dose: 50 mg assmt /plan # Unwitnessed Fall Head ct reviewed- chronic microvascular changes Cervical CT scan reviewed- no fx Lumbar CT scan- Acute T11 vertebral fx noted Chronic L3-L4 chronic vertebral compression fxs noted Thoracic CT scan -T12 vertebral body FX Conservative measures- Awaiting brace Neurosurg consult and follow up appreciated pain management appreciated # Afib rate controlled on coumadin as out patient - currently on hold follow INR # Hypothyroidism TSH 0.11 Levothyroxine decreased to 125 mcg daily # HTN- BP stable Cont BB # Pain None at present Morphine prn/ Lidocaine patch Fearful to move # Dementia/ Depression Behavior stable now Uncooperative at times Aricept/ Namenda/ Lexapro #HLD Statin Problem List - Problems (1) Fall from chair, initial encounter Code(s): W07.XXXA - FALL FROM CHAIR, INITIAL ENCOUNTER (2) Fall as cause of accidental injury at home as place of occurrence Code(s): W19.XXXA - UNSPECIFIED FALL, INITIAL ENCOUNTER; Y92.009 - UNSP PLACE IN UNSP NON-INSTIT[facility] (PRIVATE) RESIDENCE PLACE (3) Closed fracture of thoracic vertebral body Code(s): S22.009A - UNSP FRACTURE OF UNSP THORACIC VERTEBRA, INIT FOR CLOS FX (4) A-fib Code(s): I48.91 - UNSPECIFIED ATRIAL FIBRILLATION (5) Dementia Code(s): F03.90 - UNSPECIFIED DEMENTIA WITHOUT BEHAVIORAL DISTURBANCE (6) Fall Code(s): W19.XXXA - UNSPECIFIED FALL, INITIAL ENCOUNTER (7) Hypothyroidism Code(s): E03.9 - HYPOTHYROIDISM, UNSPECIFIED
[2018-09-29 15:03] VITALS: BMI 28.6
[2018-09-29] MEDS: RIVAROXABAN 20 MG TABLET PO SCH (17:25)
[2018-09-29] MEDS: LIDOCAINE 5% TOPICAL PATCH TP SCH (22:16)
[2018-09-29] MEDS: ATORVASTATIN CA 20 MG TABLET (FP) PO SCH (22:16)
[2018-09-30] MEDS ORDERED: DEXTROSE 5%-0.45% SALINE 1,000 ML IV SCH (00:30)
[2018-09-30] MEDS: MORPHINE SULFATE 2 MG/ML VIAL IVPUSH PRN (03:00)
[2018-09-30] MEDS: ACETAMINOPHEN 500 MG TABLET (FP) PO PRN (03:27)
[2018-09-30] MEDS: LEVOTHYROXINE NA 125 MCG TABLET (FP) PO SCH (06:23)
[2018-09-30 07:30] LABS: BASO % 0.4 % (0-2.0); EOS % 0.1 % (0-4.5); HEMATOCRIT 46.1 % (35.4-49); HEMOGLOBIN 15.7 GM/dL (11.7-16.9); LYMPH % 4.2 % (8-40); MCHC 34.1 g/dl (32.0-35.9); MEAN CELL VOLUME 87.9 fl (80-96); MEAN PLT VOLUME 8.1 fl (7.5-11.1); MONO % 4.3 % (3.8-10.2); PLATELET COUNT 326 K/MM3 (134-434); RBC 5.24 M/mm3 (4.00-5.60); WHITE BLOOD COUNT 16.6 K/mm3 (4.0-10.0)
[2018-09-30 07:41] LABS: INR 2.43 (0.83-1.09); PROTHROMBIN TIME (PATIENT) 28.9 SEC (9.7-13.0)
[2018-09-30 08:10] LABS: CALCIUM 9.1 mg/dL (8.5-10.1); CREATININE 0.7 mg/dL (0.55-1.3); POTASSIUM 3.7 mmol/L (3.5-5.1)
[2018-09-30] MEDS: ESCITALOPRAM OXALATE 10 MG TABLET (FP) PO SCH (10:00)
[2018-09-30] MEDS: GABAPENTIN 100 MG CAPSULE (FP) PO SCH (10:01)
[2018-09-30] MEDS: DONEPEZIL HCL 10 MG TABLET (FP) PO SCH (10:02)
[2018-09-30] MEDS: MEMANTINE HCL 10 MG TABLET (FP) PO SCH (10:02)
[2018-09-30] MEDS: METOPROLOL TARTRATE 25 MG TABLET (FP) PO SCH (10:02)
[2018-09-30] MEDS: MULTIVITAMINS (DAILY MVI) TABLET (FP) PO SCH (10:02)
[2018-09-30] MEDS: POLYETHYLENE GLYCOL 3350 119 GM BTL PO SCH (10:02)
[2018-09-30] MEDS: LIDOCAINE PATCH REMOVAL MC SCH (10:03)
--- NOTE | 2018-09-30 11:23 | DS ---
Physical Examination Vital Signs: Vital Signs Temperature 98.6 F 09/30/18 06:00 Pulse Rate 82 09/30/18 06:00 Respiratory Rate 20 09/30/18 09:00 Blood Pressure 142/80 09/30/18 06:00 O2 Sat by Pulse Oximetry (%) 95 09/30/18 10:00 Constitutional: Yes: Well Nourished Eyes: Yes: Conjunctiva Clear, EOM Intact HENT: Yes: Atraumatic, Normocephalic Neck: Yes: Supple, Trachea Midline Cardiovascular: Yes: Regular Rate and Rhythm Respiratory: Yes: Regular, CTA Bilaterally Gastrointestinal: Yes: Normal Bowel Sounds, Soft ...Rectal Exam: Yes: Deferred Renal/: Yes: WNL Breast(s): Yes: WNL Musculoskeletal: Yes: WNL Extremities: Yes: WNL Edema: No Peripheral Pulses WNL: Yes Integumentary: Yes: WNL Neurological: Yes: Alert ...Motor Strength: WNL Psychiatric: Yes: Other (Dementia) Labs: CBC, BMP 09/30/18 05:42 09/30/18 05:42 Discharge Summary Reason For Visit: CLOSED FRACTURE OF BODY OF THORACID VERTE Current Active Problems Closed fracture of thoracic vertebral body (Acute) Fall as cause of accidental injury at home as place of occurrence (Acute) Fall from chair, initial encounter (Acute) Hospital Course: 88 y/o male admitted s/p fall and back pain at [facility]. PMHx includes Dementia, Afib on coumadin, prior CVA, HTN, CHF, UC, HLD, and Hypothyroidism. T11 and T12 fractures noted. Followed by pain mgmt and neurosurgery. Plan to have conservative measures and go to [facility] for physical therapy with TLSO brace. Condition: Fair - Instructions Diet, Activity, Other Instructions: 2 gm Na diet OOB with brace/PT Disposition: [facility] - Home Medications Comprehensive Discharge Medication List: Ambulatory Orders Calcium Carb/Mag Ox/Zinc Sulf [Hwrnogm-Hlgshhiio-Mmwc Tablet] 1 each PO DAILY Cholecalciferol (Vitamin D3) [Vitamin D3] 2,000 unit PO DAILY 07/14/16 Donepezil HCl [Aricept] 10 mg PO DAILY 07/14/16 Escitalopram Oxalate [Lexapro -] 20 mg PO DAILY 07/14/16 Furosemide [Lasix] 20 mg PO BID 07/14/16 Levothyroxine [Synthroid -] 150 mcg PO ACBK 07/14/16 Memantine HCl [Namenda -] 10 mg PO DAILY 07/14/16 Multivitamin [Poly-Vitamin] 1 each PO DAILY 07/14/16 Simvastatin 10 mg PO DAILY 07/14/16 Metoprolol Tartrate [Lopressor -] 12.5 mg PO BID tablet 05/13/17 Mesalamine [Apriso] 0.375 gm PO BID 09/22/18 Warfarin Sodium [Coumadin] 3 mg PO DAILY 09/22/18
[2018-09-30 14:05] VITALS: BP 153/95; PULSE 99; TEMP 99.2
[2018-09-30 14:21] LABS: ANISOCYTOSIS 0; MACROCYTOSIS 0; PLATELET ESTIMATE NORMAL
--- NOTE | 2018-09-30 22:59 | PN ---
Progress Note (short form) - Note Progress Note: Patient with less pain, however, still not getting out of bed/ambulating. TLSO given. For discharge today.
== END 2018-09-30 18:19 | DRG 552 ==
LOC: JER 14:36 → J6S 19:33 → OBSVTOIN 21:36
PROVIDERS: ADMIT Family Medicine; ATTEND Family Medicine
DX: S22.088A Other fracture of T11-T12 vertebra, initial encounter for closed fracture (principal); F03.91 Unspecified dementia, unspecified severity, with behavioral disturbance; K51.80 Other ulcerative colitis without complications; I48.91 Unspecified atrial fibrillation; I10 Essential (primary) hypertension; E78.5 Hyperlipidemia, unspecified; E03.9 Hypothyroidism, unspecified; I25.10 Atherosclerotic heart disease of native coronary artery without angina pectoris; I25.2 Old myocardial infarction; M54.5 Low back pain; F32.9 Major depressive disorder, single episode, unspecified; M85.88 Other specified disorders of bone density and structure, other site; M48.56XD Collapsed vertebra, not elsewhere classified, lumbar region, subsequent encounter for fracture with routine healing; I11.0 Hypertensive heart disease with heart failure; I50.9 Heart failure, unspecified; W07.XXXA Fall from chair, initial encounter; Y99.8 Other external cause status; Z79.01 Long term (current) use of anticoagulants; Z86.73 Personal history of transient ischemic attack (TIA), and cerebral infarction without residual deficits
CPT/HCPCS: 36415; 70450-TC; 72125-TC; 72128-TC; 72131-TC; 80048; 80053; 81003; 82550; 82553; 83735; 84443; 84484; 85025; 85027; 85610; 85730; 87086; 93005; 93010; 97116-GP; 97161-GP; 99283-25; E0186; G0378; J0131; J7030

== ENCOUNTER 2018-10-01 18:19 | Inpatient (IN) | payer OTHER ==
[2018-10-01] MEDS ORDERED: EPINEPHrine 1:10,000 (P-F SYR) 1 MG/10 ML DISP.SYRIN ONE ×2 (18:28→22:42)
[2018-10-01] MEDS ORDERED: SODIUM BICARBONATE 8.4% 50 MEQ/50 ML VIAL ONE (18:28)
[2018-10-01] MEDS ORDERED: AMIODARONE HCL 150 MG/3 ML VIAL ONE (18:28)
[2018-10-01 18:41] VITALS: BMI 20.9
[2018-10-01] MEDS ORDERED: NOREPINEPHRINE BITARTRATE 4,000 MCG in DEXTROSE 5%-WATER - 496 ML IV SCH (18:45)
--- NOTE | 2018-10-01 19:14 | PDOC ---
Attending Attestation - Resident Resident Name: Raymond Greenwood - ED Attending Attestation I have performed the following: I have examined & evaluated the patient, The case was reviewed & discussed with the resident, I agree w/resident's findings & plan, Exceptions are as noted - HPI HPI: 10/01/18 19:07 Attempted to reach pt's daughter and HCP at [facility] at [phone] and at [phone], but was unsuccessful. I had tried to call Mojgan Ravi at [phone] but was unsuccessful. I had left messages for all numbers asking to call back. - Physicial Exam PE: 10/01/18 19:19 GENERAL: unresponsive, pupils unresponsive to light, intubated HEAD: No signs of trauma NECK: supple LUNGS: Ronchorous breath sounds bilaterally HEART: Regular rate and rhythm ABDOMEN: Soft, NEUROLOGICAL: Unresponsive - Critical Care Time Total Critical Care Time: 45 Critical Care Statement: The care of this patient involved high complexity decision making to prevent further life threatening deterioration of the patient 's condition and/or to evaluate & treat vital organ system(s) failure or risk of failure. - Medical Decision Making 10/01/18 19:19 A portion of this note was documented by scribe services under my direction. I have reviewed the details of the note, within reason, and agree with the documentation with the following case summary and management plan written by me. Patient treated in the ED. Nursing notes are reviewed and incorporated into the medical decision-making. Vital signs reviewed. Peripheral IV access obtained by the nurse, laboratory studies are drawn and sent, reviewed and interpreted by myself. This is an 88-year-old male presents with dementia, atrial fibrillation on Coumadin, prior stroke, hypertension, congestive heart failure, ulcerative colitis, hyperlipidemia, hypothyroidism presents in cardiac arrest. The patient was discharged yesterday after management of his T11 and T12 fractures. Decision was plan to have the patient undergo conservative measures and to [facility] with brace. According to the [place] [facility], the patient was conversant and his usual self at 3:30 PM. At 5:30 PM, the nursing staff had noted that the patient was slumped over in his chair. They have found the patient and ventricular arrhythmia and was different bladed twice. The patient underwent CPR was found to be PEA arrest. The patient had return of spontaneous circulation upon arrival to the ED. However, the patient deteriorated and underwent ventricle tachycardia. The patient underwent sick denies cardioversion with return of spontaneous circulation. The patient received epinephrine. The patient also underwent again cardiac arrest and underwent one round of CPR with epinephrine with return of spot case her condition. The patient was placed on levophed drip. The patient's EKG demonstrated accelerated junctional rhythm with ST depression in V4 through V5. But no noted ST elevations. My concern is that the patient may potentially have undergone a myocardial infarction. However, we'll need to investigate other labs. The patient was intubated by the EMS. We'll obtain a chest x-ray to confirm placement. I attempted to contact the patient's family but have received no call back. Patient is full code according to the facility. We'll admit the patient to the ICU. Patient has a very guarded and poor prognosis. Pt placed on cooling protocol at 34 degrees Celsius. 10/01/18 19:23 IO placed in R tib. Site sterilized prior to placement. Supervised by me, placed by Dr. Asa Prakash. 10/01/18 21:00 Chest xray reviewed by me, pending official radiology read. ET tube in trachea, enlarged heart. Under sterile guidance and ultrasound guidance, a R femoral triple lumen was placed by Dr. Greenwood under my supervision. CBC, BMP 10/01/18 20:40 WBC noted to be 58.2. Blood cultures ordered. Empiric vancomycin and zosyn. 10/01/18 21:01 ICU consulted and aware of patient. Patient to be accepted to ICU. 10/01/18 21:[address] Basurto. She accepts patient to her service. 10/01/18 21:15 Given pt has elevated WBC and potential sepsis. Will stop cooling. 10/01/18 21:36 CMP Sodium 147 mmol/L (136-145) H 10/01/18 20:40 Potassium 5.7 mmol/L (3.5-5.1) H 10/01/18 20:40 Chloride 116 mmol/L (98-107) H 10/01/18 20:40 Carbon Dioxide 12 mmol/L (21-32) L 10/01/18 20:40 Anion Gap 18 MMOL/L (8-16) H 10/01/18 20:40 BUN 49.0 mg/dL (7-18) H 10/01/18 20:40 Creatinine 2.7 mg/dL (0.55-1.3) H 10/01/18 20:40 Est GFR (CKD-EPI)AfAm 23.66 10/01/18 20:40 Est GFR (CKD-EPI)NonAf 20.42 10/01/18 20:40 Random Glucose 201 mg/dL (74-106) H 10/01/18 20:40 Lactic Acid 11.6 mmol/L (0.4-2.0) H* 10/01/18 20:40 Calcium 7.7 mg/dL (8.5-10.1) L 10/01/18 20:40 Phosphorus > 9.0 mg/dL (2.5-4.9) H* 10/01/18 20:40 Magnesium 3.2 mg/dL (1.8-2.4) H 10/01/18 20:40 Total Bilirubin 1.2 mg/dL (0.2-1) H 10/01/18 20:40 AST 1581 U/L (15-37) H 10/01/18 20:40 ALT 1165 U/L (13-61) H 10/01/18 20:40 Alkaline Phosphatase 277 U/L (45-117) H 10/01/18 20:40 Creatine Kinase 1361 U/L (26-308) H 10/01/18 20:40 Troponin I 0.61 ng/ml (0.00-0.05) H* 10/01/18 20:40 B-Natriuretic Peptide 14655.4 pg/ml (5-450) H 10/01/18 20:40 Total Protein 5.5 g/dl (6.4-8.2) L 10/01/18 20:40 Albumin 2.1 g/dl (3.4-5.0) L 10/01/18 20:40 TSH 2.27 uIU/ml (0.358-3.74) D 10/01/18 20:40 Urine Test Results Urine Color Yellow 10/01/18 20:59 Urine Appearance Turbid 10/01/18 20:59 Urine pH 5.0 (5.0-8.0) 10/01/18 20:59 Ur Specific [place] 1.019 (1.010-1.035) 10/01/18 20:59 Urine Protein Trace (NEGATIVE) 10/01/18 20:59 Urine Glucose (UA) Negative (NEGATIVE) 10/01/18 20:59 Urine Ketones Negative (NEGATIVE) 10/01/18 20:59 Urine Blood 1+ (NEGATIVE) H 10/01/18 20:59 Urine Nitrite Negative (NEGATIVE) 10/01/18 20:59 Urine Bilirubin Negative (NEGATIVE) 10/01/18 20:59 Ur Leukocyte Esterase 2+ (NEGATIVE) H 10/01/18 20:59 10/01/18 22:08 I have spoken to [facility] Oneida regarding the poor prognosis. She will come in tomorrow morning to see him. 10/01/18 22:36 10:32 pt went bradycardic and hypotensive. Pt given 1 round of CPR and 1 dose of epinephrine. Levophed bag had finished and awaiting from pharmacy for second bag. Pt started on dopamine for the time being with ROSC and MAP ~ 65 *DC/Admit/Observation/Transfer Diagnosis at time of Disposition: Cardiac arrest Leukocytosis Qualifiers: Leukocytosis type: unspecified Qualified Code(s): D72.829 - Elevated white blood cell count, unspecified - Discharge Dispostion Condition at time of disposition: Critical Decision to Admit order: Yes - Referrals - Patient Instructions - Post Discharge Activity Heart Score/ECG Review #1 ECG reviewed & interpreted by me at: 18:25 10/01/18 19:23 accelerated junctional rhythm 124, left axis deviation, STD V4-V5, no SHAD, QTC 545 msec, QTS 108 msec #2 ECG reviewed & interpreted by me at: 20:50 10/01/18 21:04 NSR 111, 1st degree AV block, occasional PVC, left axis deviation, Q wave avF, no std/shad, QTC 448 msec
--- NOTE | 2018-10-01 19:15 | PDOC ---
History of Present Illness - General Chief Complaint: Cardiac Arrest Stated Complaint: CARDIAC ARREST Time Seen by Provider: 10/01/18 18:36 - History of Present Illness Initial Comments: 10/01/18 19:02 88 yo M with h/o dementia, Afib, Hypothyrodisim, Dementia, HTN, CVA (on Coumadin ), CHF, HLD, recent thoracic vertebra fractures of T11,T12 s/p fall at [facility], now with TLSO brace and undergoing physical therapy at [facility]. Patient discharged from [facility] with plans for conservative measures for back injury (09-30-18). EMS reports they received call from [facility] ( [facility]) that patient was unresponsive. EMS noted pt. to be in PEA on scene at approximately 1750, patient with ROSC and 2 shocks/defibrillation delivered following V-tach. 150 Amiodarone administered. Patient with cardiac arrest and 2 epi, 1 Bicarb delivered in field. PEA in ED 616PM. Patietn with V-tach in ED and subsequent dysynchronized cardioversion in ED with ROSC. Pt. with PEA 647, and ROSC at 650. Per nursing staff at [facility] ( [facility] ), patient noted to be unresponsive in dining earl and activation at 528 of full code, 2 shocks delivered at 530 PM this evening. Patient last seen well at 3:30 PM and having conversation with nursing staff, and co-resident. Nursing staff unable to contact family. Family not responding to phone calls. Dr. Llamas's (PMD) nurse practitioner Christina has been notified by nursing facility. Patient is full code PMHx: as noted above ROS: as noted Allergies: NKDA Past History - Past Medical History Allergies/Adverse Reactions: Allergies Allergy/AdvReac Type Severity Reaction Status Date / Time No Known Allergies Allergy Verified 09/22/18 15:03 Home Medications: Ambulatory Orders Calcium Carb/Mag Ox/Zinc Sulf [Uzmbtcy-Zzyyodfyy-Qzfc Tablet] 1 each PO DAILY Cholecalciferol (Vitamin D3) [Vitamin D3] 2,000 unit PO DAILY 07/14/16 Donepezil HCl [Aricept] 10 mg PO DAILY 07/14/16 Escitalopram Oxalate [Lexapro -] 20 mg PO DAILY 07/14/16 Furosemide [Lasix] 20 mg PO BID 07/14/16 Levothyroxine [Synthroid -] 150 mcg PO ACBK 07/14/16 Memantine HCl [Namenda -] 10 mg PO DAILY 07/14/16 Multivitamin [Poly-Vitamin] 1 each PO DAILY 07/14/16 Simvastatin 10 mg PO DAILY 07/14/16 Metoprolol Tartrate [Lopressor -] 12.5 mg PO BID tablet 05/13/17 Mesalamine [Apriso] 0.375 gm PO BID 09/22/18 Warfarin Sodium [Coumadin] 3 mg PO DAILY 09/22/18 Acetaminophen [Tylenol .Extra-Strength -] 500 mg PO Q6H PRN tablet 09/30/18 Atorvastatin Ca [Lipitor] 20 mg PO HS tablet 09/30/18 Docusate Sodium [Colace -] 200 mg PO BID PRN capsule 09/30/18 Gabapentin [Neurontin -] 100 mg PO BID capsule 09/30/18 Levothyroxine [Synthroid -] 125 mcg PO DAILY@0700 tablet 09/30/18 Lidocaine 5% Patch [Lidoderm -] 1 patch TP DAILY@2100 patch 09/30/18 Polyethylene Glycol 3350 [Miralax 119 gm Btl -] 17 gm PO DAILY bottle 09/30/18 Rivaroxaban [Xarelto -] 20 mg PO DAILY@1800 tablet 09/30/18 Cardiac Disorders: Yes (AFIB: ON COUMADIN @ [facility]) CVA: Yes COPD: No CHF: Yes Dementia: Yes GI Disorders: (ulcerative colitis) HTN: Yes Hypercholesterolemia: Yes Thyroid Disease: Yes (HYPOTHYROIDISM) - Immunization History Immunization Up to Date: Yes - Suicide/Smoking/Psychosocial Hx Smoking History: Unknown if ever smoked Have you smoked in the past 12 months: No Information on smoking cessation initiated: No Hx Alcohol Use: No Drug/Substance Use Hx: No Substance Use Type: None Hx Substance Use Treatment: No Review of Systems - Review of Systems Comments:: 10/01/18 19:18 Unable to provide 13 point ROS inspection *Physical Exam - Vital Signs Last Vital Signs Temp Pulse Resp BP Pulse Ox 107 H 24 H 101/70 98 10/01/18 21:00 10/01/18 21:00 10/01/18 21:00 10/01/18 21:00 - Physical Exam Comments: 10/01/18 19:18 GENERAL: Patient obtunded, unresponsive to verbal/tactile stimuli, on ventilator HEAD: No signs of trauma, normocephalic, atraumatic EYES: Pupils pinpoint and fixed, absent corneal reflexes EOMI, sclera anicteric , conjunctiva clear ENT: Auricles normal inspection, hearing grossly normal, nares patent, oropharynx clear without exudates. Moist mucosa NECK: Normal ROM, supple, no lymphadenopathy, JVD, or masses LUNGS: No distress, speaks full sentences, clear to auscultation bilaterally HEART: Irregular rate and rhythm,. No normal S1 and S2, no murmurs, rubs or gallops, peripheral pulses weak/thready equal bilaterally. ABDOMEN: chest concaved following compressions, abdomen soft and distended, normoactive bowel sounds. No masses EXTREMITIES : IO in right tib. Pale, decreased turgor, delayed cap refill, no edema. No clubbing or cyanosis. NEUROLOGICAL: Cranial nerves not intact. SKIN: Warm, Dry, normal turgor, no rashes or lesions noted Procedures - Central Line Central Line Lumen: triple Central Line Position: femoral (R) Anesthesia: 1% Lidocaine Complications: none Post Central Line Insertion: sutured Progress: 10/01/18 20:53 Ultrasound guided Central Line ED Treatment Course - LABORATORY CBC & Chemistry Diagram: 10/01/18 20:40 10/01/18 20:40 - ADDITIONAL ORDERS Additional order review: Laboratory Results 10/01/18 10/01/18 10/01/18 20:59 20:40 20:40 PT with INR INR PTT (Actin FS) Sodium 147 H Potassium 5.7 H Chloride 116 H Carbon Dioxide 12 L Anion Gap 18 H BUN 49.0 H Creatinine 2.7 H Est GFR (CKD-EPI)AfAm 23.66 Est GFR (CKD-EPI)NonAf 20.42 Random Glucose 201 H Lactic Acid 11.6 H* Calcium 7.7 L Phosphorus > 9.0 H* Magnesium 3.2 H Total Bilirubin 1.2 H AST 1581 H ALT 1165 H Alkaline Phosphatase 277 H Creatine Kinase 1361 H Creatine Kinase Index 2.5 CK-MB (CK-2) 35.3 H Troponin I 0.61 H* B-Natriuretic Peptide 90007.4 H Total Protein 5.5 L Albumin 2.1 L TSH 2.27 D Urine Color Yellow Urine Appearance Turbid Urine pH 5.0 Ur Specific [place] 1.019 Urine Protein Trace Urine Glucose (UA) Negative Urine Ketones Negative Urine Blood 1+ H Urine Nitrite Negative Urine Bilirubin Negative Urine Urobilinogen 0.2 Ur Leukocyte Esterase 2+ H Urine WBC (Auto) 29 Urine RBC (Auto) 7 Urine Casts (Auto) 120 U Pathogenic Cast Auto Review A* U Epithel Cells (Auto) 3.3 Urine Bacteria (Auto) 33.4 Stool Occult Blood 10/01/18 10/01/18 20:40 19:11 PT with INR Cancelled INR Cancelled PTT (Actin FS) Cancelled Sodium Potassium Chloride Carbon Dioxide Anion Gap BUN Creatinine Est GFR (CKD-EPI)AfAm Est GFR (CKD-EPI)NonAf Random Glucose Lactic Acid Calcium Phosphorus Magnesium Total Bilirubin AST ALT Alkaline Phosphatase Creatine Kinase Creatine Kinase Index CK-MB (CK-2) Troponin I B-Natriuretic Peptide Total Protein Albumin TSH Urine Color Urine Appearance Urine pH Ur Specific [place] Urine Protein Urine Glucose (UA) Urine Ketones Urine Blood Urine Nitrite Urine Bilirubin Urine Urobilinogen Ur Leukocyte Esterase Urine WBC (Auto) Urine RBC (Auto) Urine Casts (Auto) U Pathogenic Cast Auto U Epithel Cells (Auto) Urine Bacteria (Auto) Stool Occult Blood Trace 10/01/18 20:40 RBC 4.23 MCV 96.7 H D MCHC 30.8 L RDW 16.3 H MPV 8.2 Neutrophils % 92.5 H Lymphocytes % 3.7 L Monocytes % 2.5 L Eosinophils % 0.8 D Basophils % 0.5 - Medications Given in the ED: ED Medications Discontinued Medications Generic Name Dose Route Start Last Admin Trade Name Freq PRN Reason Stop Dose Admin Piperacillin Sod/Tazobactam 50 mls @ 100 mls/hr 10/01/18 20:56 10/01/18 21:32 Sod 3.375 gm/ Dextrose IVPB 10/01/18 21:25 100 mls/hr ONCE ONE Administration Protocol Medical Decision Making - Medical Decision Making 10/01/18 19:22 88 yo M with h/o dementia, Afib, Hypothyrodisim, Dementia, HTN, CVA (on Coumadin ), CHF, HLD, recent thoracic vertebra fractures of T11,T12 s/p fall at [facility], now with TLSO brace and undergoing physical therapy at [facility] with recent discharge from [facility] (09-30-18) with plans for conservative measures for back injury, BIBEMS from [facility] ( [facility]) unresponsive, intubated in field. EMS noted pt. to be in PEA on scene at approximately 1750, patient with ROSC and 2 shocks/cardioversion delivered following V-tach. 150 Amiodarone administered. Patient with cardiac arrest, with 2 epi, 1 Bicarb delivered in field. Patient last seen well at 3:30 PM and having conversation with nursing staff, and co-resident ED Course: EKG: Accelerated Junctional Rhtyhm. STD leads V4-V5. PEA in ED 616PM. Multiple rounds of Epi delivered Patient with V-tach in ED and subsequent dysynchronized cardioversion in ED with ROSC, NS. Pt. with PEA 647, and ROSC at 650. Per nursing staff at [facility] ( [facility] ), patient noted to be unresponsive in dining earl and activation at 528 of full code, 2 shocks delivered at 530 PM this evening. Patient is full code, intubated with vent settings, persistently hypotensive SBP 50's, MAP 30s, now on levophed gtt 10/01/18 20:53 Central line placed R femoral Multiple attempts to contact family member/proxy Carey Mohamud [phone] 10/01/18 21:22 Laboratory Tests 09/30/18 10/01/18 05:42 20:40 WBC 16.6 H 58.2 H* Hgb 15.7 12.6 Hct 46.1 41.0 MCV 96.7 H D Plt Count 326 D Vanc/Zosyn 10/01/18 21:35 Laboratory Tests 10/01/18 10/01/18 20:40 20:40 Sodium 147 H Potassium 5.7 H BUN 49.0 H Creatinine 2.7 H Random Glucose 201 H Lactic Acid 11.6 H* Magnesium 3.2 H Total Bilirubin 1.2 H AST 1581 H ALT 1165 H Creatine Kinase 1361 H B-Natriuretic Peptide 00044.4 H 10/01/18 22:35 Pt. with PEA, 1 round of compressions with rosc Global hypokinesis on bedside U/S started on Dopamine gtt *DC/Admit/Observation/Transfer Diagnosis at time of Disposition: Cardiac arrest Leukocytosis Qualifiers: Leukocytosis type: unspecified Qualified Code(s): D72.829 - Elevated white blood cell count, unspecified - Discharge Dispostion Condition at time of disposition: Critical - Referrals - Patient Instructions - Post Discharge Activity
[2018-10-01 20:52] LABS: BASO % 0.5 % (0-2.0); EOS % 0.8 % (0-4.5); HEMOGLOBIN 12.6 GM/dL (11.7-16.9); LYMPH % 3.7 % (8-40); MCH 29.8 pg (25.7-33.7); MCHC 30.8 g/dl (32.0-35.9); MEAN CELL VOLUME 96.7 fl (80-96); MEAN PLT VOLUME 8.2 fl (7.5-11.1); MONO % 2.5 % (3.8-10.2); NEUT % 92.5 % (42.8-82.8); RBC 4.23 M/mm3 (4.00-5.60); RDW 16.3 % (11.9-15.9)
[2018-10-01 20:53] LABS: WHITE BLOOD COUNT 58.2 K/mm3 (4.0-10.0)
[2018-10-01] MEDS ORDERED: VANCOMYCIN 1 GM in D5W (PRE-DOCKED) 1,000 MG/250 ML IVPB ONE (20:56)
[2018-10-01] MEDS ORDERED: PIPERACILLIN/TAZOB 3.375 GM 3.375 GM in DEXTROSE 5%-WATER - 50 ML IVPB ONE (20:56)
[2018-10-01 21:09] LABS: EPI CELLS 3.3 /HPF (0-5/HPF); HYALINE CASTS 120 /lpf (0-8); URINE APPEARANCE TURBID; URINE BACTERIA 33.4 /hpf (NEGATIVE); URINE BILIRUBIN NEGATIVE (NEGATIVE); URINE COLOR YELLOW; URINE GLUCOSE (UA) NEGATIVE (NEGATIVE); URINE KETONE NEGATIVE (NEGATIVE); URINE LEUK ESTERASE 2+ (NEGATIVE); URINE NITRITE NEGATIVE (NEGATIVE); URINE PROTEIN TRACE (NEGATIVE); URINE RBC 7 /hpf (0-4); URINE UROBILINOGEN 0.2 mg/dL (0.2-1.0); URINE WBC 29 /hpf (0-5)
[2018-10-01] MEDS ORDERED: PIPERACILLIN/TAZOB 3.375 GM 3.375 GM/50 ML BAG IVPB ONE (21:20)
[2018-10-01] MEDS ORDERED: VANCOMYCIN 1 GRAM (PRE-DOCKED) 1,000 MG/250 ML BAG IVPB ONE (21:20)
[2018-10-01 21:32] LABS: ALBUMIN 2.1 g/dl (3.4-5.0); ALK PHOS 277 U/L (45-117); ANION GAP 18 MMOL/L (8-16); BILIRUBIN,TOTAL 1.2 mg/dL (0.2-1); CALCIUM 7.7 mg/dL (8.5-10.1); CHLORIDE 116 mmol/L (98-107); CO2 12 mmol/L (21-32); CREATININE 2.7 mg/dL (0.55-1.3); GLUCOSE,RANDOM 201 mg/dL (74-106); MAGNESIUM 3.2 mg/dL (1.8-2.4); N-TERMINAL BNP 14837.4 pg/ml (5-450); POTASSIUM 5.7 mmol/L (3.5-5.1); SGOT/AST 1581 U/L (15-37); SGPT/ALT 1165 U/L (13-61); SODIUM 147 mmol/L (136-145); TOT PROT 5.5 g/dl (6.4-8.2)
[2018-10-01 21:34] LABS: PHOSPHOROUS > 9.0 mg/dL (2.5-4.9)
[2018-10-01 21:42] LABS: PLATELET COUNT 319 K/MM3 (134-434)
[2018-10-01 21:43] LABS: ANISOCYTOSIS 1+; PLATELET ESTIMATE ADEQUATE
[2018-10-01] MEDS ORDERED: VASOPRESSIN 50 UNITS in SODIUM CHLORIDE 97.5 ML IVPB SCH (21:45)
[2018-10-01] MEDS ORDERED: MUPIROCIN 2% TOPICAL OINTMENT FOR DECOLONIZATION NS SCH (22:00)
[2018-10-01] MEDS ORDERED: CHLORHEXIDINE GLUCONATE 4% CLEANSER FOR DECOLONIZATION TP SCH (22:00)
[2018-10-01] MEDS ORDERED: EPINEPHrine 1:10,000 (P-F SYR) 1 MG/10 ML DISP.SYRIN IVPUSH ONE (22:36)
[2018-10-01] MEDS ORDERED: DOPAMINE 400 MG/D5W - 400,000 MCG/250 ML INFUS.BAG IVPB SCH (22:45)
[2018-10-01 22:55] LABS: ARTERIAL BLD GAS O2 SATURATION 83.7 % (95-98); ARTERIAL BLOOD GAS BASE EXCESS -21.6 meq/l (-2-2); ARTERIAL BLOOD GAS PO2 76.4 mmHg (80-105); CARBOXYHEMOGLOBIN 0.3 % (0-2)
[2018-10-01 22:56] LABS: ALLENS TEST POSITIVE
[2018-10-01 22:58] LABS: ARTERIAL BLOOD GAS pH 6.93 (7.35-7.45)
[2018-10-02] MEDS ORDERED: INSULIN SLIDING SCALE (NOVOLOG) 1 VIAL SQ SCH
[2018-10-02 00:25] LABS: INR 2.64 (0.83-1.09); PROTHROMBIN TIME (PATIENT) 31.5 SEC (9.7-13.0)
--- NOTE | 2018-10-02 00:34 | CONSULT ---
Consultation: REQUESTING PROVIDER: Dr. Barker CONSULT REQUEST: We have been asked to medically evaluate this patient for s/p cardiac arrest HISTORY OF PRESENT ILLNESS: 88 year old male with a past medical history of atrial fibrillation on coumadin/ ?xarelto, prior CVA, hypertension, CHF, ulcerative colitis, hyperlipidemia and hypothyroidism came to the hospital from [facility] rehab facility after being found slouched over in a chair. He was last known well around 3:30pm per [facility]dc , and they found him unconscious at 5:30pm and discovered him to be in cardiac arrest. EMS found him to have ventricular arrhythmia and defibrillated him two times, after which he was in PEA arrest. Patient was brought to the emergency room already intubated by EMS. He arrived after already achieving ROSC, but quickly underwent cardiac arrest again and needed another round of CPR with epinephrine. He was subsequently placed on norepinephrine drip. EKG at the time per ED showed accelerated junctional rhythm with ST depression in V4 through V5. ICU was consulted. On our arrival patient arrested again and required 1 round of CPR before achieving ROSC. He was temporarily stabilized and is currently on 20mcg of levophed. RECENT HISTORY He was recently admitted here 1 week ago for s/p fall (where he hit his head) with T11/T12 fractures, discharged only yesterday to go to [facility] for physical therapy. During that admission, he was switched from coumadin to xarelto prior to discharge. However after reviewing home meds, it appears patient had both active meds (coumadin and xarelto). Unclear at present time if he took both at the rehab facility. 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 PHYSICAL EXAMINATION Vital Signs - 24 hr 10/01/18 10/01/18 10/01/18 18:20 18:25 18:33 Pulse Rate 120 H Pulse Rate [ 129 H Apical] Respiratory 12 16 14 Rate Blood Pressure 127/72 Blood Pressure 127/72 [Right Arm] O2 Sat by Pulse 98 Oximetry (%) 10/01/18 10/01/18 10/01/18 18:34 18:36 18:48 Pulse Rate Pulse Rate [ 109 H 100 H 70 Apical] Respiratory 12 Rate Blood Pressure Blood Pressure 46/26 L 39/14 L 134/82 [Right Arm] O2 Sat by Pulse Oximetry (%) 10/01/18 10/01/18 10/01/18 18:51 18:54 18:57 Pulse Rate Pulse Rate [ 128 H 118 H 105 H Apical] Respiratory 14 16 16 Rate Blood Pressure Blood Pressure 188/100 H 129/63 91/51 L [Right Arm] O2 Sat by Pulse 100 96 100 Oximetry (%) 10/01/18 10/01/18 10/01/18 19:00 19:03 19:08 Pulse Rate 105 H Pulse Rate [ 103 H 91 H Apical] Respiratory 16 18 Rate Blood Pressure 43/33 L Blood Pressure 62/38 L 43/33 L [Right Arm] O2 Sat by Pulse 98 100 Oximetry (%) 10/01/18 10/01/18 10/01/18 19:09 19:12 19:15 Pulse Rate Pulse Rate [ 63 81 Apical] Respiratory 21 H 14 Rate Blood Pressure 49/25 L Blood Pressure 38/27 L 52/31 L [Right Arm] O2 Sat by Pulse 96 97 Oximetry (%) 10/01/18 10/01/18 10/01/18 19:18 19:19 19:25 Pulse Rate Pulse Rate [ 83 85 Apical] Respiratory 17 18 Rate Blood Pressure 59/37 L Blood Pressure 59/37 L 92/47 L [Right Arm] O2 Sat by Pulse 95 100 Oximetry (%) 10/01/18 10/01/18 10/01/18 19:29 19:30 19:33 Pulse Rate Pulse Rate [ 85 89 Apical] Respiratory 12 17 16 Rate Blood Pressure Blood Pressure 86/51 L 97/48 L [Right Arm] O2 Sat by Pulse 100 100 Oximetry (%) 10/01/18 10/01/18 10/01/18 19:36 19:38 19:40 Pulse Rate Pulse Rate [ 89 95 H Apical] Respiratory 15 17 Rate Blood Pressure Blood Pressure 101/50 L 99/57 L [Right Arm] O2 Sat by Pulse 100 82 L 99 Oximetry (%) 10/01/18 10/01/18 10/01/18 19:45 19:50 19:55 Pulse Rate Pulse Rate [ 98 H 100 H 100 H Apical] Respiratory 13 14 16 Rate Blood Pressure Blood Pressure 107/54 L 111/55 L 116/56 L [Right Arm] O2 Sat by Pulse 99 100 100 Oximetry (%) 10/01/18 10/01/18 10/01/18 20:00 20:05 20:10 Pulse Rate Pulse Rate [ 101 H 104 H 105 H Apical] Respiratory 18 19 21 H Rate Blood Pressure Blood Pressure 106/69 109/55 L 104/56 L [Right Arm] O2 Sat by Pulse 99 100 99 Oximetry (%) 10/01/18 10/01/18 10/01/18 20:15 20:20 20:30 Pulse Rate Pulse Rate [ 106 H 101 H 123 H Apical] Respiratory 21 H 22 H 23 H Rate Blood Pressure Blood Pressure 104/52 L 105/58 L 91/60 [Right Arm] O2 Sat by Pulse 98 98 97 Oximetry (%) 10/01/18 10/01/18 10/01/18 20:40 20:50 20:58 Pulse Rate Pulse Rate [ 111 H 111 H Apical] Respiratory 23 H 23 H 13 Rate Blood Pressure 87/50 L Blood Pressure 92/63 87/50 L [Right Arm] O2 Sat by Pulse 100 97 Oximetry (%) 10/01/18 10/01/18 10/01/18 21:00 22:00 22:30 Pulse Rate Pulse Rate [ 107 H 100 H 97 H Apical] Respiratory 24 H 12 12 Rate Blood Pressure Blood Pressure 101/70 66/51 L 73/56 L [Right Arm] O2 Sat by Pulse 98 87 L 88 L Oximetry (%) 10/01/18 10/01/18 10/01/18 22:45 23:00 23:21 Pulse Rate Pulse Rate [ 99 H 98 H 95 H Apical] Respiratory 12 12 12 Rate Blood Pressure Blood Pressure 83/60 L 95/69 90/61 [Right Arm] O2 Sat by Pulse 86 L 88 L 88 L Oximetry (%) 10/01/18 10/02/18 23:57 00:17 Pulse Rate Pulse Rate [ 94 H Apical] Respiratory 25 H 26 H Rate Blood Pressure Blood Pressure 102/62 [Right Arm] O2 Sat by Pulse Oximetry (%) GENERAL: Not alert or oriented HEAD: No signs of physical trauma EYES: Pupils pinpoint and minimally reactive. No scleral icterus noted ENT: Dry mucus membranes LUNGS: Course breath sounds, mechanical HEART: Tachycardic, pansystolic murmur appreciated, distant heart sounds ABDOMEN: Distended, large ventral hernia noted MUSCULOSKELETAL: Chest wall soft, anterior rib fractures apparent on exam LOWER EXTREMITIES: pulses not palpated, cool extremities, ischemic danger zone noted NEUROLOGICAL: Unable to assess SKIN: Cool, clammy skin Laboratory Results - last 24 hr 10/01/18 10/01/18 10/01/18 19:11 20:40 20:40 WBC 58.2 H* RBC 4.23 Hgb 12.6 Hct 41.0 MCV 96.7 H D MCH 29.8 MCHC 30.8 L RDW 16.3 H Plt Count 319 MPV 8.2 Absolute Neuts (auto) 53.9 H Neutrophils % 92.5 H Neutrophils % (Manual) 68.0 D Band Neutrophils % 18.0 Lymphocytes % 3.7 L Lymphocytes % (Manual) 4.0 L D Monocytes % 2.5 L Monocytes % (Manual) 5 Eosinophils % 0.8 D Eosinophils % (Manual) 1.0 D Basophils % 0.5 Myelocytes % (Man) 1 D Nucleated RBC % 0 Metamyelocytes 3 H D Platelet Estimate Adequate Platelet Comment Slide reviewed Anisocytosis 1+ Microcytosis 1+ PT with INR Cancelled INR Cancelled PTT (Actin FS) Cancelled Anticoagulation Therapy Puncture Site ABG pH ABG pCO2 at Pt Temp ABG pO2 at Pt Temp ABG HCO3 ABG O2 Sat (Measured) ABG O2 Content ABG Base Excess Rober Test Carboxyhemoglobin Methemoglobin O2 Delivery Device Oxygen Flow Rate Vent Mode Vent Rate Mechanical Rate Pressure Support Vent Sodium Potassium Chloride Carbon Dioxide Anion Gap BUN Creatinine Est GFR (CKD-EPI)AfAm Est GFR (CKD-EPI)NonAf POC Glucometer Random Glucose Lactic Acid Calcium Phosphorus Magnesium Total Bilirubin AST ALT Alkaline Phosphatase Creatine Kinase Creatine Kinase Index CK-MB (CK-2) Troponin I B-Natriuretic Peptide Total Protein Albumin TSH Urine Color Urine Appearance Urine pH Ur Specific [place] Urine Protein Urine Glucose (UA) Urine Ketones Urine Blood Urine Nitrite Urine Bilirubin Urine Urobilinogen Ur Leukocyte Esterase Urine WBC (Auto) Urine RBC (Auto) Urine Casts (Auto) U Pathogenic Cast Auto U Epithel Cells (Auto) Urine Bacteria (Auto) Stool Occult Blood Trace 10/01/18 10/01/18 10/01/18 20:40 20:40 20:59 WBC RBC Hgb Hct MCV MCH MCHC RDW Plt Count MPV Absolute Neuts (auto) Neutrophils % Neutrophils % (Manual) Band Neutrophils % Lymphocytes % Lymphocytes % (Manual) Monocytes % Monocytes % (Manual) Eosinophils % Eosinophils % (Manual) Basophils % Myelocytes % (Man) Nucleated RBC % Metamyelocytes Platelet Estimate Platelet Comment Anisocytosis Microcytosis PT with INR INR PTT (Actin FS) Anticoagulation Therapy Puncture Site ABG pH ABG pCO2 at Pt Temp ABG pO2 at Pt Temp ABG HCO3 ABG O2 Sat (Measured) ABG O2 Content ABG Base Excess Rober Test Carboxyhemoglobin Methemoglobin O2 Delivery Device Oxygen Flow Rate Vent Mode Vent Rate Mechanical Rate Pressure Support Vent Sodium 147 H Potassium 5.7 H Chloride 116 H Carbon Dioxide 12 L Anion Gap 18 H BUN 49.0 H Creatinine 2.7 H Est GFR (CKD-EPI)AfAm 23.66 Est GFR (CKD-EPI)NonAf 20.42 POC Glucometer Random Glucose 201 H Lactic Acid 11.6 H* Calcium 7.7 L Phosphorus > 9.0 H* Magnesium 3.2 H Total Bilirubin 1.2 H AST 1581 H ALT 1165 H Alkaline Phosphatase 277 H Creatine Kinase 1361 H Creatine Kinase Index 2.5 CK-MB (CK-2) 35.3 H Troponin I 0.61 H* B-Natriuretic Peptide 76265.4 H Total Protein 5.5 L Albumin 2.1 L TSH 2.27 D Urine Color Yellow Urine Appearance Turbid Urine pH 5.0 Ur Specific [place] 1.019 Urine Protein Trace Urine Glucose (UA) Negative Urine Ketones Negative Urine Blood 1+ H Urine Nitrite Negative Urine Bilirubin Negative Urine Urobilinogen 0.2 Ur Leukocyte Esterase 2+ H Urine WBC (Auto) 29 Urine RBC (Auto) 7 Urine Casts (Auto) 120 U Pathogenic Cast Auto Review A* U Epithel Cells (Auto) 3.3 Urine Bacteria (Auto) 33.4 Stool Occult Blood 10/01/18 10/01/18 10/01/18 22:45 23:55 23:56 WBC RBC Hgb Hct MCV MCH MCHC RDW Plt Count MPV Absolute Neuts (auto) Neutrophils % Neutrophils % (Manual) Band Neutrophils % Lymphocytes % Lymphocytes % (Manual) Monocytes % Monocytes % (Manual) Eosinophils % Eosinophils % (Manual) Basophils % Myelocytes % (Man) Nucleated RBC % Metamyelocytes Platelet Estimate Platelet Comment Anisocytosis Microcytosis PT with INR 31.50 H INR 2.64 H PTT (Actin FS) Anticoagulation Therapy No Result Required. Puncture Site Right brachial ABG pH 6.93 L* ABG pCO2 at Pt Temp 59.0 H ABG pO2 at Pt Temp 76.4 L ABG HCO3 11.6 L ABG O2 Sat (Measured) 83.7 L ABG O2 Content 14.8 L ABG Base Excess -21.6 L Rober Test Positive Carboxyhemoglobin 0.3 Methemoglobin 0.5 O2 Delivery Device No Result Required. Oxygen Flow Rate Yes Vent Mode No Result Required. Vent Rate No Result Required. Mechanical Rate No Result Required. Pressure Support Vent No Result Required. Sodium Potassium Chloride Carbon Dioxide Anion Gap BUN Creatinine Est GFR (CKD-EPI)AfAm Est GFR (CKD-EPI)NonAf POC Glucometer 118 Random Glucose Lactic Acid Calcium Phosphorus Magnesium Total Bilirubin AST ALT Alkaline Phosphatase Creatine Kinase Creatine Kinase Index CK-MB (CK-2) Troponin I B-Natriuretic Peptide Total Protein Albumin TSH Urine Color Urine Appearance Urine pH Ur Specific [place] Urine Protein Urine Glucose (UA) Urine Ketones Urine Blood Urine Nitrite Urine Bilirubin Urine Urobilinogen Ur Leukocyte Esterase Urine WBC (Auto) Urine RBC (Auto) Urine Casts (Auto) U Pathogenic Cast Auto U Epithel Cells (Auto) Urine Bacteria (Auto) Stool Occult Blood Active Medications Generic Name Dose Route Start Last Admin Trade Name Freq PRN Reason Stop Dose Admin Chlorhexidine Gluconate 1 applic 10/01/18 22:00 Hibiclens For Decolonization - TP HS CAROL Norepinephrine Bitartrate 4, 500 mls @ 37.5 mls/hr 10/01/18 18:45 10/01/18 20 :50 000 mcg/ Dextrose IV 30 mcg/min TITR CAROL 225 mls/hr Titration Protocol 5 MCG/MIN Vasopressin 50 units/ Sodium 100 mls @ 4 mls/hr 10/01/18 21:45 Chloride IVPB ASDIR CAROL Protocol 2 UNITS/HR Dopamine HCl/Dextrose 400,000 mcg in 250 mls @ 12.757 mls/hr 10/01/18 22:45 Dopamine 400 Mg/D5w - IVPB TITR CAROL Protocol 5 MCG/KG/MIN Insulin Aspart 1 vial 10/02/18 00:00 Novolog Vial Sliding Scale - SQ Q6HPO [facility] Protocol Mupirocin 1 applic 10/01/18 22:00 Bactroban Ointment (For Decolonization) - NS 10/06/18 21:59 BID [facility] ASSESSMENT/PLAN: 88 year old male with a past medical history of atrial fibrillation on coumadin/ ?xarelto, prior CVA, hypertension, CHF, ulcerative colitis, hyperlipidemia and hypothyroidism came [facility] the [facility] after being found slouched over in a chair and in cardiac arrest #Cardiovascular *S/P Cardiac Arrest -unclear cause of cardiac arrest, however etiologies that are on the differential are myocardial infarction, cerebral hemorrhage, pulmonary embolism , traumatic sequela of brain injury from fall -patient is in shock and on 3 vasopressors: levophed 30, dopamine 10, vasopressin 8; MAPs ~61-71 -intubated, not sedated, no spontaneous breaths on ventilator -EKG appears to be in sinus tachycardia with 1st degree AV block, will repeat EKG in the AM -therapeutic hypothermia as patient meets criteria -hold all home antihypertensives and anticoagulants at present moment given patient's blood pressure -call placed to daughter myself without answer. ER spoke to daughter who will decide on code status in the morning -troponinemia 0.61, repeat 2.84, more likely demand from myocardial demand ischemia however cannot rule out MA. Patient INR is already therapeutic at 2.64 , will not add anticoagulation at this time due to further risk of bleeding. 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 -not responsive, no reflexes elicited #Gastrointestinal -severe transaminitis (AST>ALT 2589>1554) secondary to shock liver from hypoperfusion from cardiac arrest; continuing to #Renal -patient has received 3+ boluses of normal saline and is currently anuric -jarvis is in place not draining urine at present time -hyperphosphatemia 9.0 --> 10, will attempt NGT and order phoslo for the patient -ESTEPHANIA, creatinine worsening from ~2 to >3, likely secondary to renal hypoperfusion -patient is still anuric, continue to monitor urine output #Infectious Disease -marked leukocytosis, patient dosed with antibiotics in ED due to suspected sepsis -could be a result of sepsis 2/2 UTI (only clear source) however the leukocytosis #FEN -s/p 4 liters bolus, on standing bicarb ggt now in D5W -severe electrolyte derangements as listed above -NPO #Lines/Tubes -Patient has a R sided femoral central venous catheter (10/02/18) and jarvis () in place -ET tube in place #Disposition This is a critical patient with poor prognosis Per daughter, no more pressors to be added and discussed DNR with daughter. Daughter wants no aggressive measures to be taken. Continue to monitor in the ICU Dispo: We will continue to follow the patient. Thank you for this consultative opportunity. Visit type - Emergency Visit Emergency Visit: Yes ED Registration Date: 10/01/18 Care time: The patient presented to the Emergency Department on the above date and was hospitalized for further evaluation of their emergent condition. - New Patient This patient is new to me today: Yes Date on this admission: 10/02/18 - Critical Care Critical Care patient: Yes Total Critical Care Time (in minutes): 182 Critical Care Statement: The care of this patient involved high complexity decision making to prevent further life threatening deterioration of the patient 's condition and/or to evaluate & treat vital organ system(s) failure or risk of failure.
[2018-10-02 01:00] LABS: HEMATOCRIT 37.2 % (35.4-49); HEMOGLOBIN 10.8 GM/dL (11.7-16.9); MCH 29.6 pg (25.7-33.7); MCHC 29.1 g/dl (32.0-35.9); MEAN CELL VOLUME 101.5 fl (80-96); MEAN PLT VOLUME 8.1 fl (7.5-11.1); RBC 3.66 M/mm3 (4.00-5.60); RDW 16.8 % (11.9-15.9)
[2018-10-02 01:04] LABS: BILIRUBIN,TOTAL 1.5 mg/dL (0.2-1); BLOOD UREA NITROGEN 51.4 mg/dL (7-18); CALCIUM 7.6 mg/dL (8.5-10.1); POTASSIUM 4.8 mmol/L (3.5-5.1); TOT PROT 5.1 g/dl (6.4-8.2)
[2018-10-02 01:05] LABS: WHITE BLOOD COUNT 63.5 K/mm3 (4.0-10.0)
[2018-10-02] MEDS ORDERED: VASOPRESSIN 20 UNITS/ML VIAL IV ONE ×2 (01:42→02:36)
[2018-10-02 02:11] LABS: ARTERIAL BLD GAS O2 SATURATION 73.5 % (95-98); ARTERIAL BLOOD GAS PO2 67.2 mmHg (80-105)
[2018-10-02 02:18] LABS: ARTERIAL BLOOD GAS PCO2 70.8 mmHg (35-45); ARTERIAL BLOOD GAS pH 6.73 (7.35-7.45)
[2018-10-02 02:19] LABS: ALLENS TEST POSITIVE
[2018-10-02] MEDS ORDERED: NOREPINEPHRINE BITARTRATE 4 MG/4 ML ML IV ONE (02:26)
[2018-10-02] MEDS ORDERED: SODIUM CHLORIDE IV SCH (02:30)
[2018-10-02] MEDS ORDERED: SODIUM BICARBONATE IV SCH (02:30)
[2018-10-02] MEDS ORDERED: DEXTROSE 5%-WATER - 1,000 ML with SODIUM BICARBONATE 8.4% - 150 MEQ IV SCH (02:30)
[2018-10-02 02:36] LABS: PLATELET COUNT 332 K/MM3 (134-434)
[2018-10-02] MEDS ORDERED: SODIUM BICARBONATE 8.4% - 150 MEQ in DEXTROSE 5%-WATER - 1,000 ML IV SCH (02:42)
[2018-10-02] MEDS ORDERED: NOREPINEPHRINE BITARTRATE 8,000 MCG in DEXTROSE 5%-WATER - 492 ML IV SCH (02:45)
[2018-10-02] MEDS ORDERED: SODIUM CHLORIDE 1,000 ML IV STA (03:11)
[2018-10-02] MEDS ORDERED: DOBUTAMINE HCL 250,000 MCG in SODIUM CHLORIDE 230 ML IV SCH (03:45)
--- NOTE | 2018-10-02 06:26 | PN ---
Progress Note (short form) - Note Progress Note: NOTE Pt seen and assessed at bedside. Unresponsive to sternal rub. No spontaneous breath sounds auscultated. No heart sounds auscultated. Absent b/l pupillary reflex. Absent gag reflex. Absent b/l corneal reflex. Absent b/l carotid pulses. Absent b/l femoral pulses. TIME OF - 6:19AM.
--- NOTE | 2018-10-02 06:33 | HOSP ---
Subjective - Review of Symptoms Subjective: Called that patient had at 6:19am. Patient was pronounced by Dr. Alisia Barney at 6:19am. Physical Examination Vital Signs: Vital Signs Temperature 93.2 F L 10/02/18 04:25 Pulse Rate 79 10/02/18 04:25 Respiratory Rate 12 10/02/18 04:25 Blood Pressure 71/54 L 10/02/18 04:25 O2 Sat by Pulse Oximetry (%) 90 L 10/02/18 03:45 Visit type - Emergency Visit Emergency Visit: No - New Patient This patient is new to me today: No - Critical Care Critical Care patient: No
[2018-10-02 07:27] VITALS: BP 65/53; PULSE 77; TEMP 92.4
[2018-10-02 07:48] LABS: BLOOD UREA NITROGEN 42.3 mg/dL (7-18); CREATININE 2.9 mg/dL (0.55-1.3); MAGNESIUM 2.7 mg/dL (1.8-2.4); TOT PROT 2.6 g/dl (6.4-8.2)
[2018-10-02 07:53] LABS: CALCIUM 6.5 mg/dL (8.5-10.1); PHOSPHOROUS 11.7 mg/dL (2.5-4.9); POTASSIUM 6.4 mmol/L (3.5-5.1)
[2018-10-02] MEDS ORDERED: CALCIUM ACETATE 667 MG CAPSULE (FP) NGT SCH (08:00)
--- NOTE | 2018-10-02 08:29 | EKG ---
Test Reason : Blood Pressure : / mmHG Vent. Rate : 111 BPM Atrial Rate : 113 BPM P-R Int : 240 ms QRS Dur : 090 ms QT Int : 330 ms P-R-T Axes : 076 -35 079 degrees QTc Int : 448 ms POOR DATA QUALITY, INTERPRETATION MAY BE ADVERSELY AFFECTED SINUS TACHYCARDIA WITH 1ST DEGREE A-V BLOCK WITH PREMATURE SUPRAVENTRICULAR COMPLEXES LEFT AXIS DEVIATION INFERIOR INFARCT (CITED ON OR BEFORE 01-OCT-2018) ABNORMAL ECG WHEN COMPARED WITH ECG OF 01-OCT-2018 18:23, SINUS RHYTHM HAS REPLACED JUNCTIONAL RHYTHM ST LESS DEPRESSED IN LATERAL LEADS Confirmed by MONTRELL STEWART, CHANDNI ([id number]) on 10/02/2018 8:28:29 AM Referred By: Confirmed By:CHANDNI STOCK MD
--- NOTE | 2018-10-02 08:30 | EKG ---
Test Reason : Blood Pressure : / mmHG Vent. Rate : 124 BPM Atrial Rate : 035 BPM P-R Int : 000 ms QRS Dur : 108 ms QT Int : 380 ms P-R-T Axes : 000 -41 095 degrees QTc Int : 545 ms ACCELERATED JUNCTIONAL RHYTHM LEFT AXIS DEVIATION INFERIOR INFARCT , AGE UNDETERMINED MARKED ST ABNORMALITY, POSSIBLE LATERAL SUBENDOCARDIAL INJURY ABNORMAL ECG WHEN COMPARED WITH ECG OF 22-SEP-2018 16:18, SIGNIFICANT CHANGES HAVE OCCURRED Confirmed by CHANDNI STOCK MD ([id number]) on 10/02/2018 8:30:00 AM Referred By: Confirmed By:CHANDNI STOCK MD
[2018-10-02 08:53] LABS: BASO % 0.4 % (0-2.0); EOS % 0.3 % (0-4.5); HEMATOCRIT 21.4 % (35.4-49); LYMPH % 7.7 % (8-40); MCH 28.5 pg (25.7-33.7); MCHC 25.1 g/dl (32.0-35.9); MEAN CELL VOLUME 113.6 fl (80-96); MEAN PLT VOLUME 7.7 fl (7.5-11.1); MONO % 1.9 % (3.8-10.2); NEUT % 89.7 % (42.8-82.8); PLATELET COUNT 259 K/MM3 (134-434); RBC 1.88 M/mm3 (4.00-5.60); RDW 16.9 % (11.9-15.9)
[2018-10-02 08:59] LABS: HEMOGLOBIN 5.4 GM/dL (11.7-16.9)
[2018-10-02] MEDS ORDERED: MUPIROCIN 2% TOPICAL OINTMENT FOR DECOLONIZATION NS SCH (10:00)
[2018-10-02] MEDS ORDERED: CHLORHEXIDINE GLUCONATE 4% CLEANSER FOR DECOLONIZATION TP SCH (22:00)
== END 2018-10-02 10:21 | disposition expired | DRG 296 ==
LOC: JER 18:19 → JERBED 21:13 → JICU 10-02 01:55
PROVIDERS: ADMIT Family Medicine; ATTEND Family Medicine
PROC: 5A1935Z Respiratory Ventilation, Less than 24 Consecutive Hours (ICD-10-PCS; principal; 2018-10-01)
PROC: 0BH17EZ Insertion of Endotracheal Airway into Trachea, Via Natural or Artificial Opening (ICD-10-PCS; 2018-10-01)
PROC: 5A12012 Performance of Cardiac Output, Single, Manual (ICD-10-PCS; 2018-10-01)
PROC: 02HV33Z Insertion of Infusion Device into Superior Vena Cava, Percutaneous Approach (ICD-10-PCS; 2018-10-01)
DX: I46.2 Cardiac arrest due to underlying cardiac condition (principal); A41.9 Sepsis, unspecified organism; G93.1 Anoxic brain damage, not elsewhere classified; I24.8 Other forms of acute ischemic heart disease; E87.2 Acidosis; N17.9 Acute kidney failure, unspecified; R57.9 Shock, unspecified; I11.0 Hypertensive heart disease with heart failure; I50.9 Heart failure, unspecified; E03.9 Hypothyroidism, unspecified; E78.5 Hyperlipidemia, unspecified; I48.91 Unspecified atrial fibrillation; D72.829 Elevated white blood cell count, unspecified; E83.39 Other disorders of phosphorus metabolism; R74.0 Nonspecific elevation of levels of transaminase and lactic acid dehydrogenase [LDH]; R00.1 Bradycardia, unspecified; I95.9 Hypotension, unspecified
CPT/HCPCS: 36415; 36600; 71045-TC-FY; 80053; 81003; 82272; 82375; 82550; 82553; 82803; 82962; 83036; 83050; 83605; 83735; 83880; 84100; 84443; 84484; 85025; 85027; 85610; 87040; 87086; 93005; 93010; 94002; 99285-25; J7030